=== PATIENT | male | born 1965 | race Caucasian/White ===

== ENCOUNTER → 2018-03-28 10:32 | Outpatient (CLI) | payer OTHER, SELFPAY ==
--- NOTE | 2018-03-28 10:37 | DI.RAD.S_ITS ---
PROCEDURE: XR LUMBAR SPINE 2-3V INDICATIONS: hip pain TECHNIQUE: 3 views of the lumbar spine were acquired. COMPARISON: [facility], CR, SPINE LUMB 2 OR 3VW, 11/08/2013, 11:37. [facility], MR, L-SPINE WITHOUT CONTRAST, 10/16/2013, 10:53. FINDINGS: Bones: 5 [id number] vertebrae are present. There is normal bony alignment. No vertebral body compression fractures. No suspicious bony lesions. There is mild degenerative disc disease at L3-L4 and L4-L5. Moderate facet arthropathy at L4-L5 and L5-S1. Soft tissues: Overlying bowel gas pattern is normal. No suspicious soft tissue calcifications. IMPRESSION: Mild degenerative disc disease and moderate facet arthropathy. Dictated by: Bernardo Silva M.D. on 03/28/2018 at 12:04 Approved by: Bernardo Silva M.D. on 03/28/2018 at 12:08
--- NOTE | 2018-03-28 10:37 | DI.RAD.S_ITS ---
PROCEDURE: XR HIP W PEL IF DONE RT 2V INDICATIONS: hip pain TECHNIQUE: AP pelvis with lateral view(s) of the right hip(s). COMPARISON: None. FINDINGS: Bones: No fractures or dislocations. Pelvic ring appears intact. No suspicious bony lesions. Bilateral moderate symmetric hip joint degeneration. Soft tissues: The visualized bowel gas pattern is normal. No suspicious soft tissue calcifications. IMPRESSION: Symmetric hip joint degeneration bilaterally. Dictated by: Bernardo Silva M.D. on 03/28/2018 at 12:08 Approved by: Bernardo Silva M.D. on 03/28/2018 at 12:10
[2018-03-28 12:15] LABS: Add Manual Diff / Slide Review NO; Basophils Percent Auto 0.4 % (0-2); Eosinophils Percent Auto 1.3 % (2-4); Hematocrit 42.1 % (41-53); Hemoglobin 14.1 g/dL (13.5-17.5); Lymphocytes Percent Auto 29.4 % (25-40); Mean Corpuscular HGB Conc 33.5 % (30-36); Mean Corpuscular Volume 95.6 fL (80-100); Monocytes Percent Auto 8.1 % (3-14); Neutrophils Absolute Auto 4600 /uL (3000-5900); Neutrophils Percent Auto 60.8 % (50-75); Platelet Count 215 X10^3/uL (150-400); Red Cell Distribution Width 13.1 % (11.6-14.8); White Blood Cell Count 7.5 X10^3/uL (4.5-11.0)
[2018-03-28 12:41] LABS: Alanine Aminotransferase 27 IU/L (21-72); Albumin 4.1 g/dL (3.5-5.0); Albumin Globulin Ratio 1.4 (1.0-2.8); Alkaline Phosphatase 88 U/L (38-126); Aspartate Aminotransferase 23 IU/L (17-59); Bilirubin Total 0.4 mg/dL (0.2-1.3); Blood Urea Nitrogen 16 mg/dL (9-20); Calcium 8.8 mg/dL (8.4-10.2); Carbon Dioxide 26 mmol/L (22-32); Chloride 104 mmol/L (98-107); Cholesterol 136 mg/dL (140-199); Estimated Glomerular Filt Rate > 60.0 mL/min (>60); Globulin 2.9 g/dL (1.7-4.1); Glucose 87 mg/dL (70-100); HDL Cholesterol 43 mg/dL (40-60); HEMOLYSIS < 15 (0-50); LDL Cholesterol Calculated 66 mg/dL (<100); Potassium 3.9 mmol/L (3.4-5.1); Sodium 139 mmol/L (137-145); Triglycerides 133 mg/dL (35-150)
== END ==
PROVIDERS: Family Provider Family Medicine; PCP Family Medicine; Visit Provider Family Medicine
DX: I10 Essential (primary) hypertension (principal); M25.559 Pain in unspecified hip
CPT/HCPCS: 36415; 72100; 73502; 80053; 80061; 85025

== ENCOUNTER → 2019-01-02 10:28 | Outpatient (CLI) | payer OTHER, SELFPAY ==
[2019-01-02 12:14] LABS: Add Manual Diff / Slide Review NO; Basophils Absolute Auto 0 /uL (0-100); Basophils Percent Auto 0.3 % (0-2); Eosinophils Absolute Auto 100 /uL (0-450); Eosinophils Percent Auto 1.4 % (2-4); Hematocrit 46.8 % (41-53); Hemoglobin 15.6 g/dL (13.5-17.5); Lymphocytes Absolute Auto 2000 /uL (1100-4500); Lymphocytes Percent Auto 24.8 % (25-40); Mean Corpuscular HGB Conc 33.5 % (30-36); Mean Corpuscular Hemoglobin 31.8 PG (26-34); Mean Corpuscular Volume 95.2 fL (80-100); Monocytes Absolute Auto 700 /uL (0-900); Monocytes Percent Auto 8.7 % (3-14); Neutrophils Absolute Auto 5300 /uL (1500-7000); Neutrophils Percent Auto 64.8 % (50-75); Platelet Count 226 X10^3/uL (150-400); Red Blood Cell Count 4.91 X10^6/uL (4.5-5.9); Red Cell Distribution Width 12.9 % (11.6-14.8); White Blood Cell Count 8.2 X10^3/uL (4.5-11.0)
[2019-01-02 12:21] LABS: Alanine Aminotransferase 24 IU/L (21-72); Albumin 4.5 g/dL (3.5-5.0); Albumin Globulin Ratio 1.5 (1.0-2.8); Alkaline Phosphatase 101 U/L (38-126); Aspartate Aminotransferase 25 IU/L (17-59); Bilirubin Total 0.5 mg/dL (0.2-1.3); Blood Urea Nitrogen 12 mg/dL (9-20); Carbon Dioxide 26 mmol/L (22-32); Chloride 104 mmol/L (98-107); Cholesterol 143 mg/dL (140-199); Estimated Glomerular Filt Rate > 60.0 mL/min (>60); Glucose 83 mg/dL (70-100); HDL Cholesterol 43 mg/dL (40-60); HEMOLYSIS < 15 (0-50); LDL Cholesterol Calculated 62 mg/dL (<100); Potassium 4.3 mmol/L (3.4-5.1); Sodium 140 mmol/L (137-145); Total Protein 7.5 g/dL (6.3-8.2); Triglycerides 191 mg/dL (35-150)
[2019-01-02 12:51] LABS: Prostate Specific Antigen Scrn 1.05 ng/mL (0.1-4.0)
[2019-01-02 13:06] LABS: Thyroid Stimulating Hormone 1.92 uIU/mL (0.47-4.68)
== END ==
PROVIDERS: PCP Family Medicine; Visit Provider Family Medicine
DX: I10 Essential (primary) hypertension (principal); E66.9 Obesity, unspecified; Z01.89 Encounter for other specified special examinations; Z12.5 Encounter for screening for malignant neoplasm of prostate; Z13.220 Encounter for screening for lipoid disorders; Z13.29 Encounter for screening for other suspected endocrine disorder; Z79.899 Other long term (current) drug therapy
CPT/HCPCS: 36415; 80053; 80061; 84443; 85025; G0103

== ENCOUNTER → 2019-04-24 10:16 | Outpatient (CLI) | payer OTHER, SELFPAY ==
[2019-04-24 12:18] LABS: Blood Urea Nitrogen 12 mg/dL (9-20); Calcium 9.4 mg/dL (8.4-10.2); Carbon Dioxide 29 mmol/L (22-32); Chloride 100 mmol/L (98-107); Estimated Glomerular Filt Rate > 60.0 mL/min (>60); Glucose 87 mg/dL (70-100); HEMOLYSIS < 15 (0-50); Sodium 136 mmol/L (137-145)
== END ==
PROVIDERS: PCP Family Medicine; Visit Provider Family Medicine
DX: I10 Essential (primary) hypertension (principal)
CPT/HCPCS: 36415; 80048; 80053; 80061; 84153; 85025

== ENCOUNTER → 2019-07-04 11:06 | Outpatient (CLI) | payer OTHER, SELFPAY ==
--- NOTE | 2019-07-04 11:12 | DI.MRI.S_ITS ---
PROCEDURE: MR LUMBAR SPINE WO CON INDICATIONS: Low back pain TECHNIQUE: Noncontrast sagittal T1 spin echo and T2 fast echo, sagittal STIR, axial T1 and T2 fast spin echo through the lumbar spine. In cases with scoliosis, additional coronal T2 fast spin echo may be performed. COMPARISON: [facility], MR, L-SPINE WITHOUT CONTRAST, 10/16/2013, 10:53. FINDINGS: Image quality: Excellent. Alignment and Curvature: There is normal bony alignment. Bone Marrow: Multilevel degenerative endplate sclerosis and spurring. Diffuse facet arthropathy. No acute vertebral body compression fractures. Spinal Cord: Conus medullaris terminates at the L2 level. Visualized cord demonstrates normal signal and size. Paraspinous Soft Tissues: No paravertebral masses. There is nonspecific, dependent posterior subcutaneous soft tissue edema from level of L2-sacrum L1-L2: Normal appearance. L2-L3: Normal appearance. L3-L4: Normal appearance. L4-L5: No high-grade canal stenosis. Partial effacement of both lateral recesses with bilaterally symmetric appearance. Mild bilateral foraminal narrowing. L5-S1: No high-grade canal stenosis. Partial effacement of both lateral recesses with bilaterally symmetric appearance. No definite foraminal narrowing. IMPRESSION: Overall, unchanged examination. Mild bilateral L4-L5 foraminal narrowing, without interval progression. Dictated by: Dereje Nava M.D. on 07/04/2019 at 14:56 Approved by: Dereje Naav M.D. on 07/04/2019 at 15:02
--- NOTE | 2019-07-04 11:12 | DI.MRI.S_ITS ---
PROCEDURE: MR HIP RT WO CON INDICATIONS: Hip pain TECHNIQUE: Noncontrast coronal T1 spin echo and STIR through the bony pelvis. Coronal and axial T2 fast spin echo with fat saturation, sagittal T1 spin echo, and oblique axial T2 fast spin echo with fat saturation through the hip. COMPARISON: [facility], CT, ABDOMEN/PELVIS WITH CONTRAST, 12/05/2012, 15:34. [facility], CR, XR HIP W PEL IF DONE RT 2V, 03/28/2018, 10:45. FINDINGS: Image quality: Excellent. Bones and joints: Within both femoral heads, subchondral serpiginous signal changes in keeping with avascular necrosis. No definite articular surface collapse is seen. No intraosseous lesions or fractures. Facet arthropathy and lower lumbar spondylosis. Moderate bilateral hip joint degeneration. Tendons and ligaments: The gluteus medius and minimus tendons appear intact, without associated muscle atrophy. The nearby proximal iliotibial band also appears intact. The iliopsoas tendon appears intact, without adjacent bursal fluid collections or evidence for impingement syndrome. The origin of the hamstring tendon is intact at the ischial tuberosity, as well as the associated sacrotuberous ligament. The straight and reflected heads of the rectus femoris muscle origin appear intact, as well as the conjoint tendon. The ligamentum teres appears intact where visualized. Labrum and cartilage: Superior labral degeneration/fraying. Adjacent degenerative cystic changes in acetabulum. Small hip joint effusion. The alpha angle of the femur is within normal limits at less than 55 degrees. Soft tissues: Visualized muscles demonstrate normal bulk and internal signal. Quadratus femoris muscle demonstrates no internal edema to suggest ischiofemoral impingement. The proximal sciatic neurovascular bundle appears normal adjacent to the hamstring tendons. No free pelvic fluid. Bladder wall thickness is normal. Genitourinary structures and bowel loops appear normal where visualized. IMPRESSION: Bilateral femoral head avascular necrosis. No definite articular surface collapse though continued surveillance with radiographs could be performed as necessary. Moderate bilateral hip joint degeneration Superior labral degeneration/fraying. Small hip joint effusion. Dictated by: Dereje Nava M.D. on 07/04/2019 at 15:02 Approved by: Dereje Nava M.D. on 07/04/2019 at 15:14
== END ==
PROVIDERS: PCP Family Medicine; Visit Provider Family Medicine
DX: M54.5 Low back pain (principal); M25.551 Pain in right hip; M48.061 Spinal stenosis, lumbar region without neurogenic claudication; M16.0 Bilateral primary osteoarthritis of hip; M87.852 Other osteonecrosis, left femur; M87.851 Other osteonecrosis, right femur; M25.451 Effusion, right hip
CPT/HCPCS: 72148; 73721

== ENCOUNTER → 2019-12-31 10:25 | Outpatient (CLI) | payer OTHER, SELFPAY ==
[2019-12-31 11:33] LABS: Add Manual Diff / Slide Review NO; Basophils Absolute Auto 0 /uL (0-100); Basophils Percent Auto 0.6 % (0-2); Eosinophils Absolute Auto 100 /uL (0-450); Eosinophils Percent Auto 1.4 % (2-4); Hematocrit 42.4 % (41-53); Hemoglobin 14.5 g/dL (13.5-17.5); Lymphocytes Absolute Auto 2000 /uL (1100-4500); Mean Corpuscular HGB Conc 34.3 % (30-36); Mean Corpuscular Volume 96.3 fL (80-100); Monocytes Absolute Auto 800 /uL (0-900); Monocytes Percent Auto 10.4 % (3-14); Neutrophils Absolute Auto 4900 /uL (1500-7000); Neutrophils Percent Auto 62.6 % (50-75); Platelet Count 227 X10^3/uL (150-400); Red Cell Distribution Width 12.8 % (11.6-14.8); White Blood Cell Count 7.9 X10^3/uL (4.5-11.0)
[2019-12-31 11:45] LABS: Alanine Aminotransferase 21 IU/L (<50); Albumin 4.5 g/dL (3.5-5.0); Albumin Globulin Ratio 1.5 (1.0-2.8); Alkaline Phosphatase 86 U/L (38-126); Aspartate Aminotransferase 26 IU/L (17-59); BUN Creatinine Ratio 24.7 (6-22); Bilirubin Total 0.3 mg/dL (0.2-1.3); Blood Urea Nitrogen 20 mg/dL (9-20); Calcium 9.3 mg/dL (8.4-10.2); Carbon Dioxide 25 mmol/L (22-32); Chloride 104 mmol/L (98-107); Cholesterol 146 mg/dL (140-199); Estimated Glomerular Filt Rate > 60.0 mL/min (>60); Globulin 3.1 g/dL (1.7-4.1); Glucose 86 mg/dL (70-100); HDL Cholesterol 41 mg/dL (40-60); HEMOLYSIS < 15 (0-50); LDL Cholesterol Calculated 76 mg/dL (<100); Potassium 4.8 mmol/L (3.4-5.1); Sodium 136 mmol/L (137-145); Total Protein 7.6 g/dL (6.3-8.2); Triglycerides 147 mg/dL (35-150)
[2019-12-31 12:15] LABS: Prostate Specific Antigen Scrn 0.815 ng/mL (0.1-4.0)
== END ==
PROVIDERS: PCP Family Medicine; Referring Provider Family Medicine; Visit Provider Family Medicine
DX: I10 Essential (primary) hypertension (principal)
CPT/HCPCS: 36415; 80053; 80061; 85025; G0103

== ENCOUNTER 2020-01-21 12:38 | Emergency (ER) | payer OTHER, SELFPAY ==
[2020-01-21 13:08] VITALS: BP 116/61; PULSE 69; RESP 18; TEMP 36.4; O2SAT 97
--- NOTE | 2020-01-21 15:28 | ED_ITS ---
HPI - Skin/Abscess/Foreign Bdy <JS Garcia - Last Filed: 01/21/20 15:55> General Chief complaint: Skin/Abscess/Foreign Body Stated complaint: RT HAND INFECTION PER DR COCHRAN Time Seen by Provider: 01/21/20 15:13 Source: patient Mode of arrival: Ambulatory Limitations: no limitations History of Present Illness HPI narrative: The patient is a 54-year-old male current smoker with history of cardiac arrest who presents with a chief complaint of an infection the back of his right hand. He states that he was playing with his dogs on Monday, who playfully nipped his hand. Since that he has had redness on the back of his hand. He thinks it is either that related to blackberry bushes. He does not know the date of his last tetanus. He states that his dog is vaccinated. He th inks that this is more likely due to his dog's teeth. Related Data Previous Rx's Medication Instructions Recorded albuterol sulfate 90 mcg/actuation 2 puff INHALATION Q4H PRN #8.5 ea 01/30/19 aerosol inhaler lisinopril 20 mg tablet 20 mg PO BID #180 tab 01/30/19 betamethasone dipropionate 0.05 % See Rx Instructions .ROUTE 12/02/19 topical ointment .COMPLEX #45 gram hydrocodone 7.5 mg-acetaminophen 1 tab PO Q6H PRN #120 tab 12/27/19 325 mg tablet tiotropium bromide 2.5 2 puff INHALATION DAILY #4 gram 01/03/20 mcg/actuation mist for inhalation amoxicillin-pot clavulanate 1 tab PO BID #20 tab 01/21/20 [Augmentin] Allergies Allergy/AdvReac Type Severity Reaction Status Date / Time No Known Drug Allergies Allergy Unknown Verified 08/14/19 10:24 Review of Systems <JS Garcia - Last Filed: 01/21/20 15:55> Review of Systems Narrative: GENERAL: Denies chills, fatigue, malaise, fever, sweats. HEENT: Denies sinus pain, ear pain, sore throat, difficulty swallowing, dizziness. RESPIRATORY: Denies dyspnea, cough, wheezing, hemoptysis, sputum. CARDIOVASCULAR: Denies chest pain, palpitations, orthopnea, edema, GASTROINTESTINAL: Denies nausea, vomiting, abdominal pain, diarrhea, constipation, melena. : Denies dysuria, frequency, incontinence, hematuria, urinary retention. MUSCULOSKELETAL: See HPI SKIN: See HPI NEUROLOGIC: Denies weakness, headache, numbness, change in speech, confusion, seizures, incoordination. PSYCHIATRIC: No concerning psychosocial issues. 12 point review of systems is negative except for those stated above Patient History <JS Garcia - Last Filed: 01/21/20 15:55> Social History Smoking Status: Current some day smoker Smoking Status: Current some day smoker Exam <JS Garcia - Last Filed: 01/21/20 15:55> Narrative Exam Narrative: GENERAL: This is a well-nourished, well-developed patient, no acute distress HEAD: Atraumatic. Normocephalic. No temporal or scalp tenderness. EYES: Pupils equal round and reactive. Extraocular motions intact. No scleral icterus. No injection or drainage. ENT: Nose without bleeding, purulent drainage or septal hematoma. Throat without erythema, tonsillar hypertrophy or exudate. Uvula midline. Airway patent. NECK: Trachea midline. No JVD or lymphadenopathy. Supple, nontender, no meningeal signs. CARDIOVASCULAR: Regular rate and rhythm RESPIRATORY: Coarse bilaterally to auscultation. Breath sounds equal bilaterally. EXTREMITIES: Skin exam as noted. Full range of motion noted right hand. Able to flex and extend against resistance all fingers right hand. Positive right radial pulse. Capillary refill less than 2 seconds fingers right hand BACK: Nontender without deformity or crepitance. No flank tenderness. NEURO: AOx3. SKIN: Erythema dorsum of right hand not extending down 2 fingers, not extending up wrist. Small puncture ellis noted on dorsum of right hand Initial Vital Signs Initial Vital Signs: Vital Signs Temperature 97.5 F L 01/21/20 13:08 Pulse Rate 69 01/21/20 13:08 Respiratory Rate 18 01/21/20 13:08 Blood Pressure 116/61 01/21/20 13:08 Pulse Oximetry 97 01/21/20 13:08 <Mahamed Latif DO - Last Filed: 01/21/20 20:08> Initial Vital Signs Initial Vital Signs: Vital Signs Temperature 97.5 F L 01/21/20 13:08 Pulse Rate 69 01/21/20 13:08 Respiratory Rate 18 01/21/20 13:08 Blood Pressure 116/61 01/21/20 13:08 Pulse Oximetry 97 01/21/20 13:08 Course <JS Garcia - Last Filed: 01/21/20 15:55> Orders Ordered: Discontinued Medications Diphtheria/Tetanus/Acell Pertussis (Adacel) 0.5 ml IM .ONCE ONE Stop: 01/21/20 15:20 Last Admin: 01/21/20 15:31 Dose: 0.5 ml Documented by: RODNEY Vital Signs Vital signs: Vital Signs - 8 hr 01/21/20 13:08 Temperature 97.5 F L Pulse Rate 69 Respiratory Rate 18 Blood Pressure 116/61 Pulse Oximetry 97 <Mahamed Latif DO - Last Filed: 01/21/20 20:08> Orders Ordered: Discontinued Medications Diphtheria/Tetanus/Acell Pertussis (Adacel) 0.5 ml IM .ONCE ONE Stop: 01/21/20 15:20 Last Admin: 01/21/20 15:31 Dose: 0.5 ml Documented by: RODNEY Vital Signs Vital signs: Vital Signs - 8 hr 01/21/20 13:08 Temperature 97.5 F L Pulse Rate 69 Respiratory Rate 18 Blood Pressure 116/61 Pulse Oximetry 97 MDM - Skin/Abscess/Foreign Bdy <JS Garcia - Last Filed: 01/21/20 15:55> MDM Narrative Medical decision making narrative: The patient is a 54-year-old male who [facility] with a chief complaint of an infection after a dog bite on his right hand. He initially thought it might be due to blackberry bushes, but then remembered that puncture murphy from his dog. His dog was vaccinated. He does not know when his last tetanus was, so his tetanus was updated in the emergency department. He declined x-ray. He has full range of motion and is overall nontoxic well-appearing afebrile in the emergency department. I discussed at length the importance of following up with primary care provider in the next few days. Placed on Augmentin for dog bite. Discussed monitor for signs of systemic illness and worsening such as redness extending up his arm. Patient has no questions or concerns upon discharge and states understanding return precautions as well as follow-up care. Discharge Plan Departure Patient Disposition: Home Clinical Impression: Cellulitis Qualifiers: Site of cellulitis: extremity Site of cellulitis of extremity: upper extremity Laterality: right Qualified Code(s): L03.113 - Cellulitis of right upper limb Dog bite Qualifiers: Encounter type: initial encounter Qualified Code(s): W54.0XXA - Bitten by dog, initial encounter Discharge Date/Time: 01/21/20 15:43 Instructions: DI for Cellulitis -- Adult, DI for Animal Bites, DI for Dog Bite Activity Restrictions/Additional Instructions: Thank you for trusting us with your care today Today we updated your tetanus. I sent a prescription of an antibiotic to [facility] in [place] Please take this with a yogurt or probiotic As discussed please monitor for signs of worsening infection such as fever, decreased range of motion, redness extending up your hand Please follow-up with primary care provider in the next few days Please come back to the emergency department for any acute concerns Prescriptions: New amoxicillin-pot clavulanate [Augmentin] 875-125 mg tablet 1 tab PO BID Qty: 20 RF: 0 No Action betamethasone dipropionate 0.05 % ointment See Rx Instructions .ROUTE .COMPLEX Qty: 45 RF: 5 hydrocodone-acetaminophen 7.5-325 mg tablet 1 tab PO Q6H PRN (Reason: pain) Qty: 120 RF: 0 Spiriva Respimat 2.5 mcg/actuation mist 2 puff INHALATION DAILY Qty: 4 RF: 5 albuterol sulfate [Proventil HFA] 90 mcg/actuation HFA aerosol inhaler 2 puff INHALATION Q4H PRN (Reason: shortness of breath or wheezing) Qty: 8.5 RF: 11 lisinopril [Prinivil] 20 mg tablet 20 mg PO BID Qty: 180 RF: 3 Referrals: Lisandro Cochran MD [Primary Care Provider] - <Mahamed Latif DO - Last Filed: 01/21/20 20:08> [facility] ED Attending Natalia Attestation: I was immediately available in the department for consultation. This documentation has been reviewed and I agree with assessment and plan. Supervised by Mahamed Latif DO
[2020-01-21] MEDS: TET,DIPH,PERTUSS(ACELL),VAC/PF 0.5 ML SYRINGE IM (15:31)
== END 2020-01-21 15:43 | disposition home or self-care (01) ==
PROVIDERS: Emergency Provider Nurse Practitioner Family; PCP Family Medicine
DX: L03.113 Cellulitis of right upper limb (principal); W54.0XXA Bitten by dog, initial encounter; Z23 Encounter for immunization
CPT/HCPCS: 90471; 99283; 90715

== ENCOUNTER → 2020-06-09 11:33 | Outpatient (CLI) | payer OTHER, SELFPAY ==
[2020-06-09 12:45] LABS: Add Manual Diff / Slide Review NO; Basophils Absolute Auto 0 /uL (0-100); Basophils Percent Auto 0.3 % (0-2); Eosinophils Absolute Auto 100 /uL (0-450); Eosinophils Percent Auto 1.3 % (2-4); Hematocrit 45.2 % (41-53); Hemoglobin 15.2 g/dL (13.5-17.5); Lymphocytes Absolute Auto 1900 /uL (1100-4500); Lymphocytes Percent Auto 22.3 % (25-40); Mean Corpuscular HGB Conc 33.6 % (30-36); Mean Corpuscular Hemoglobin 31.8 PG (26-34); Mean Corpuscular Volume 94.7 fL (80-100); Monocytes Absolute Auto 700 /uL (0-900); Monocytes Percent Auto 8.4 % (3-14); Neutrophils Absolute Auto 5800 /uL (1500-7000); Neutrophils Percent Auto 67.7 % (50-75); Platelet Count 232 X10^3/uL (150-400); Red Blood Cell Count 4.78 X10^6/uL (4.5-5.9); Red Cell Distribution Width 12.9 % (11.6-14.8); White Blood Cell Count 8.5 X10^3/uL (4.5-11.0)
[2020-06-09 13:04] LABS: Alanine Aminotransferase 23 IU/L (<50); Albumin 4.4 g/dL (3.5-5.0); Albumin Globulin Ratio 1.5 (1.0-2.8); Alkaline Phosphatase 99 U/L (38-126); Aspartate Aminotransferase 24 IU/L (17-59); BUN Creatinine Ratio 21.1 (6-22); Bilirubin Total 0.6 mg/dL (0.2-1.3); Blood Urea Nitrogen 15 mg/dL (9-20); Carbon Dioxide 27 mmol/L (22-32); Chloride 104 mmol/L (98-107); Cholesterol 141 mg/dL (140-199); Estimated Glomerular Filt Rate > 60.0 mL/min (>60); Glucose 86 mg/dL (70-100); HDL Cholesterol 42 mg/dL (40-60); HEMOLYSIS < 15 (0-50); LDL Cholesterol Calculated 67 mg/dL (<100); Potassium 4.3 mmol/L (3.4-5.1); Sodium 137 mmol/L (137-145); Total Protein 7.4 g/dL (6.3-8.2); Triglycerides 158 mg/dL (35-150)
[2020-06-09 13:22] LABS: Prostate Specific Antigen Scrn 0.893 ng/mL (0.1-4.0)
[2020-06-09 13:23] LABS: Thyroid Stimulating Hormone 1.49 uIU/mL (0.47-4.68)
== END ==
PROVIDERS: PCP Family Medicine; Referring Provider Family Medicine; Visit Provider Family Medicine
DX: E66.9 Obesity, unspecified (principal); I10 Essential (primary) hypertension; Z12.5 Encounter for screening for malignant neoplasm of prostate; Z13.220 Encounter for screening for lipoid disorders; Z13.6 Encounter for screening for cardiovascular disorders
CPT/HCPCS: 36415; 80053; 80061; 84443; 85025; G0103

== ENCOUNTER → 2021-01-06 10:37 | Outpatient (CLI) | payer OTHER, SELFPAY ==
[2021-01-06 12:01] LABS: Add Manual Diff / Slide Review NO; Basophils Absolute Auto 0 /uL (0-100); Basophils Percent Auto 0.6 % (0-2); Eosinophils Absolute Auto 100 /uL (0-450); Eosinophils Percent Auto 0.9 % (2-4); Hematocrit 40.8 % (41-53); Lymphocytes Absolute Auto 1700 /uL (1100-4500); Mean Corpuscular HGB Conc 34.2 % (30-36); Mean Corpuscular Hemoglobin 32.9 PG (26-34); Mean Corpuscular Volume 96.2 fL (80-100); Monocytes Absolute Auto 700 /uL (0-900); Monocytes Percent Auto 8.3 % (3-14); Neutrophils Absolute Auto 5800 /uL (1500-7000); Neutrophils Percent Auto 70.2 % (50-75); Platelet Count 230 X10^3/uL (150-400); Red Blood Cell Count 4.25 X10^6/uL (4.5-5.9); Red Cell Distribution Width 13.2 % (11.6-14.8); White Blood Cell Count 8.3 X10^3/uL (4.5-11.0)
[2021-01-06 12:31] LABS: Alanine Aminotransferase 22 IU/L (<50); Albumin 4.2 g/dL (3.5-5.0); Albumin Globulin Ratio 1.6 (1.0-2.8); Alkaline Phosphatase 95 U/L (38-126); Aspartate Aminotransferase 24 IU/L (17-59); Bilirubin Total 0.3 mg/dL (0.2-1.3); Blood Urea Nitrogen 17 mg/dL (9-20); Calcium 9.4 mg/dL (8.4-10.2); Carbon Dioxide 25 mmol/L (22-32); Chloride 105 mmol/L (98-107); Cholesterol 146 mg/dL (140-199); Estimated Glomerular Filt Rate > 60.0 mL/min (>60); Globulin 2.6 g/dL (1.7-4.1); Glucose 88 mg/dL (70-100); HDL Cholesterol 47 mg/dL (40-60); HEMOLYSIS < 15 (0-50); LDL Cholesterol Calculated 74 mg/dL (<100); Potassium 4.7 mmol/L (3.4-5.1); Sodium 137 mmol/L (137-145); Total Protein 6.8 g/dL (6.3-8.2); Triglycerides 123 mg/dL (35-150)
[2021-01-06 13:00] LABS: Prostate Specific Antigen Scrn 0.712 ng/mL (0.1-4.0)
== END ==
PROVIDERS: PCP Family Medicine; Referring Provider Family Medicine; Visit Provider Family Medicine
DX: E11.9 Type 2 diabetes mellitus without complications (principal); E78.00 Pure hypercholesterolemia, unspecified; E78.2 Mixed hyperlipidemia; I10 Essential (primary) hypertension; Z12.5 Encounter for screening for malignant neoplasm of prostate
CPT/HCPCS: 36415; 80053; 80061; 85025; G0103

== ENCOUNTER → 2021-05-27 10:50 | Outpatient (CLI) | payer OTHER, SELFPAY ==
[2021-05-27 11:49] LABS: Add Manual Diff / Slide Review NO; Basophils Absolute Auto 0 /uL (0-100); Basophils Percent Auto 0.5 % (0-2); Eosinophils Absolute Auto 100 /uL (0-450); Eosinophils Percent Auto 1.3 % (2-4); Hematocrit 45.1 % (41-53); Lymphocytes Absolute Auto 1800 /uL (1100-4500); Lymphocytes Percent Auto 20.8 % (25-40); Mean Corpuscular HGB Conc 33.1 % (30-36); Mean Corpuscular Hemoglobin 32.1 PG (26-34); Mean Corpuscular Volume 96.8 fL (80-100); Monocytes Absolute Auto 700 /uL (0-900); Monocytes Percent Auto 7.7 % (3-14); Neutrophils Absolute Auto 5900 /uL (1500-7000); Neutrophils Percent Auto 69.7 % (50-75); Platelet Count 235 X10^3/uL (150-400); Red Blood Cell Count 4.66 X10^6/uL (4.5-5.9); Red Cell Distribution Width 13.2 % (11.6-14.8); White Blood Cell Count 8.5 X10^3/uL (4.5-11.0)
[2021-05-27 12:42] LABS: Alanine Aminotransferase 21 IU/L (<50); Albumin 4.5 g/dL (3.5-5.0); Albumin Globulin Ratio 1.6 (1.0-2.8); Alkaline Phosphatase 93 U/L (38-126); Aspartate Aminotransferase 25 IU/L (17-59); BUN Creatinine Ratio 22.4 (6-22); Bilirubin Total 0.5 mg/dL (0.2-1.3); Blood Urea Nitrogen 15 mg/dL (9-20); Calcium 9.3 mg/dL (8.4-10.2); Carbon Dioxide 31 mmol/L (22-32); Chloride 103 mmol/L (98-107); Estimated Glomerular Filt Rate > 60.0 mL/min (>60); Globulin 2.9 g/dL (1.7-4.1); Glucose 90 mg/dL (70-100); HEMOLYSIS < 15 (0-50); Potassium 4.3 mmol/L (3.4-5.1); Sodium 141 mmol/L (137-145); Total Protein 7.4 g/dL (6.3-8.2)
== END ==
PROVIDERS: PCP Family Medicine; Referring Provider Family Medicine; Visit Provider Family Medicine
DX: E66.9 Obesity, unspecified (principal); I10 Essential (primary) hypertension; J44.9 Chronic obstructive pulmonary disease, unspecified; Z68.33 Body mass index [BMI] 33.0-33.9, adult; Z71.6 Tobacco abuse counseling
CPT/HCPCS: 36415; 80053; 85025

== ENCOUNTER → 2023-01-18 12:24 | Outpatient (CLI) | payer SELFPAY ==
[2023-01-18 13:05] LABS: Add Manual Diff / Slide Review NO; Basophils Absolute Auto 0 /uL (0-100); Basophils Percent Auto 0.4 % (0-2); Eosinophils Absolute Auto 100 /uL (0-450); Eosinophils Percent Auto 0.9 % (2-4); Hematocrit 42.2 % (41-53); Hemoglobin 14.4 g/dL (13.5-17.5); Lymphocytes Absolute Auto 1600 /uL (1100-4500); Lymphocytes Percent Auto 23.1 % (25-40); Mean Corpuscular Hemoglobin 32.6 PG (26-34); Mean Corpuscular Volume 95.9 fL (80-100); Monocytes Absolute Auto 700 /uL (0-900); Monocytes Percent Auto 9.5 % (3-14); Neutrophils Absolute Auto 4700 /uL (1500-7000); Neutrophils Percent Auto 66.1 % (50-75); Platelet Count 222 X10^3/uL (150-400); Red Cell Distribution Width 13.8 % (11.6-14.8); White Blood Cell Count 7.1 X10^3/uL (4.5-11.0)
[2023-01-18 13:14] LABS: Alanine Aminotransferase 22 IU/L (<50); Albumin 4.2 g/dL (3.5-5.0); Albumin Globulin Ratio 1.4 (1.0-2.8); Alkaline Phosphatase 97 U/L (38-126); Aspartate Aminotransferase 23 IU/L (17-59); Bilirubin Total 0.6 mg/dL (0.2-1.3); Blood Urea Nitrogen 9 mg/dL (9-20); Calcium 8.6 mg/dL (8.4-10.2); Carbon Dioxide 27 mmol/L (22-32); Chloride 102 mmol/L (98-107); Cholesterol 146 mg/dL (140-199); Estimated Glomerular Filt Rate > 60 mL/min (>60); Glucose 95 mg/dL (70-100); HDL Cholesterol 52 mg/dL (40-60); HEMOLYSIS < 15 (0-50); LDL Cholesterol Calculated 63 mg/dL (<100); Sodium 138 mmol/L (137-145); Total Protein 7.2 g/dL (6.3-8.2); Triglycerides 153 mg/dL (35-150)
[2023-01-18 13:43] LABS: Prostate Specific Antigen Scrn 0.549 ng/mL (0.1-4.0)
[2023-01-18 13:44] LABS: TSH w/ Reflex to FT4 1.71 uIU/mL (0.47-4.68)
== END ==
PROVIDERS: PCP Family Medicine; Referring Provider Family Medicine; Visit Provider Family Medicine
DX: E66.9 Obesity, unspecified (principal); I10 Essential (primary) hypertension; Z12.5 Encounter for screening for malignant neoplasm of prostate
CPT/HCPCS: 36415; 80053; 80061; 84443; 85025; G0103

== ENCOUNTER → 2023-01-18 13:55 | Outpatient (CLI) | payer SELFPAY ==
--- NOTE | 2023-01-18 14:13 | DI.RAD.S_ITS ---
PROCEDURE: XR LUMBAR SPINE MIN 4V INDICATIONS: BACK PAIN TECHNIQUE: 5 views of the lumbar spine were acquired, including bilateral oblique views. COMPARISON: None. FINDINGS: Bones: 5 nonrib-bearing vertebrae are present. There is grade 1 anterolisthesis of L4 on L5. No vertebral body compression fractures. No suspicious bony lesions. Mild degenerative disc disease at L4-L5. Moderate facet arthropathy at L3-L4, L4-L5 and L5-S1. Soft tissues: Overlying bowel gas pattern is normal. No suspicious soft tissue calcifications. Oblique images: No pars defects. IMPRESSION: 1. Degenerative disc and facet disease. Dictated by: Bernardo Silva M.D. on 01/18/2023 at 16:39 Approved by: Bernardo Silva M.D. on 01/18/2023 at 16:46
--- NOTE | 2023-01-18 15:40 | DI.RAD.S_ITS ---
PROCEDURE: XR HIP W PEL IF DONE NGUYỄN MIN 4V INDICATIONS: bilateral hip pain TECHNIQUE: AP pelvis with lateral view(s) of the bilateral hip(s). COMPARISON: [facility], CR, XR HIP W PEL IF DONE RT 2V, 03/28/2018, 10:45. FINDINGS: Bones: No fractures or dislocations. Pelvic ring appears intact. No suspicious bony lesions. Avascular necrosis versus subchondral cystic change of the femoral heads. Bony expansion of the femoral necks, consistent with CAM type abnormality. Nonuniform joint space narrowing with osteophyte formation. Soft tissues: The visualized bowel gas pattern is normal. No suspicious soft tissue calcifications. IMPRESSION: Suspect bilateral femoral avascular necrosis. Subchondral cystic change not excluded. 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 Superimposed [id number] degenerative change. Dictated by: Ian Méndez M.D. on 01/18/2023 at 15:52 Approved by: Ian Méndez M.D. on 01/18/2023 at 15:54
== END ==
PROVIDERS: PCP Family Medicine; Referring Provider Physical Medicine & Rehabilitation; Visit Provider Physical Medicine & Rehabilitation
DX: M51.36 Other intervertebral disc degeneration, lumbar region (principal); M47.816 Spondylosis without myelopathy or radiculopathy, lumbar region; M19.90 Unspecified osteoarthritis, unspecified site
CPT/HCPCS: 72110; 73522

== ENCOUNTER → 2023-02-20 12:12 | Outpatient (CLI) | payer OTHER, MEDICAID, SELFPAY ==
--- NOTE | 2023-02-20 12:14 | DI.RAD.S_ITS ---
PROCEDURE: XR CHEST 2V INDICATIONS: Pre operative TECHNIQUE: 2 views of the chest were acquired. COMPARISON: [facility], , CHEST 2 VIEW, 06/15/2012, 9:07. FINDINGS: Surgical changes and devices: None. Lungs and pleura: No acute consolidations, opacities, effusions, or pneumothorax. There are chronic rounded calcifications in the left upper lobe and right lower lobe. Mediastinum: Mediastinal contours are normal. Heart size is normal. Bones and chest wall: No suspicious bony abnormalities. Soft tissues appear unremarkable. IMPRESSION: No acute cardiopulmonary disease. Dictated by: Millie Amato M.D. on 02/20/2023 at 17:41 Approved by: Millie Amato M.D. on 02/20/2023 at 17:41
== END ==
PROVIDERS: PCP Family Medicine; Referring Provider Family Medicine; Visit Provider Family Medicine
DX: Z01.818 Encounter for other preprocedural examination (principal)
CPT/HCPCS: 71046

== ENCOUNTER → 2023-03-14 12:16 | Outpatient (CLI) | payer OTHER, MEDICAID, SELFPAY | PROVIDERS: PCP Family Medicine; Referring Provider Family Medicine; Visit Provider Family Medicine | DX: Z01.818 Encounter for other preprocedural examination (principal); M16.0 Bilateral primary osteoarthritis of hip | CPT/HCPCS: 93005 ==

== ENCOUNTER 2024-01-10 11:38 | Inpatient (IN) | payer OTHER, SELFPAY ==
[2024-01-10] VITALS (41 sets, daily range): BP systolic 145–174; BP diastolic 71–93; PULSE 84–115; RESP 13–42; TEMP 36.6–37.4; O2SAT 82–98; BMI 43.4
--- NOTE | 2024-01-10 11:55 | DI.RAD.S_ITS ---
PROCEDURE: XR CHEST 1V INDICATIONS: SOB TECHNIQUE: One view of the chest was acquired. COMPARISON: [facility], CR, XR CHEST 2V, 02/20/2023, 12:39. FINDINGS: Surgical changes and devices: None. Lungs and pleura: Lungs are clear. No pleural effusions or pneumothorax. Mediastinum: Mediastinal contours appear normal. Heart size is normal. Bones and chest wall: No suspicious bony lesions. Overlying soft tissues appear unremarkable. IMPRESSION: No acute cardiopulmonary abnormality is seen. Dictated by: Artemio Duval M.D. on 01/10/2024 at 12:24 Approved by: Artemio Duval M.D. on 01/10/2024 at 12:25
--- NOTE | 2024-01-10 12:07 | ED.GENADULT ---
HPI - General Adult General Chief complaint: Shortness of Breath/Dyspnea Stated complaint: big wound R leg, draining, sob Time Seen by Provider: 01/10/24 11:46 Source: patient Mode of arrival: Wheelchair History of Present Illness HPI narrative: 58-year-old male. States he has no underlying lung pathology although his problem list states COPD. He was a smoker. Does have home oxygen but does not use it. 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 No chest pain. Does have a cough but this is baseline. No abdominal pain or nausea vomiting. He also states he has wounds on his lower extremities. Has a history of psoriasis. He states that the wounds on his lower extremities have been there for at least a month but has been worsening over the past couple days. It was now draining. He went to the walk-in a couple days ago and was advised to come to the emergency department but secondary to social issues was unable to do so. Related Data Home Medications Medication Instructions Recorded Confirmed aspirin 81 mg tablet,delayed 81 mg PO QAM 01/10/24 01/10/24 release docusate sodium 100 mg capsule 100 mg PO BID PRN constipation 01/10/24 01/10/24 lisinopril 20 mg tablet 20 mg PO BID 01/10/24 01/10/24 Previous Rx's Medication Instructions Recorded albuterol sulfate 90 mcg/actuation 2 puff inhalation Q4H PRN 08/12/20 aerosol inhaler (Proventil HFA) shortness of breath or wheezing #8.5 ea tiotropium bromide 2.5 2 puff inhalation DAILY #4 grams 02/09/22 mcg/actuation mist for inhalation (Spiriva Respimat) betamethasone dipropionate 0.05 % See Rx Instructions .Route 11/25/22 topical ointment .COMPLEX #45 grams varenicline 1 mg tablet 1 mg PO BID #56 tabs 03/14/23 hydrocodone 7.5 mg-acetaminophen See Rx Instructions .Route 12/11/23 325 mg tablet .COMPLEX #150 tabs Allergies Allergy/AdvReac Type Severity Reaction Status Date / Time No Known Drug Allergies Allergy Unknown Verified 09/12/23 12:01 Review of Systems Review of Systems ROS Unobtainable: All systems reviewed & are unremarkable except as noted in HPI and below Patient History Medical History Hypoxia Degenerative joint disease of both hips Chronic pain of both knees Gout Bilateral lower extremity edema Chronic pain Iliotibial band syndrome, left leg Tobacco abuse counseling Right hip pain Social History Smoking Status: Current every day smoker Tobacco: How many years used: 45 alcohol intake: current substance use type: does not use Smoking Status: Current every day smoker tobacco type: cigarettes Substance Use Type: does not use Exam Initial Vital Signs Initial Vital Signs: Vital Signs Temperature 99.4 F 01/10/24 11:40 Pulse Rate 106 H 01/10/24 11:40 Respiratory Rate 32 H 01/10/24 11:40 Blood Pressure 145/73 H 01/10/24 11:40 Pulse Oximetry 82 L 01/10/24 11:40 Oxygen Delivery Method Room Air 01/10/24 11:40 Const Other: Chronically ill-appearing HENMT Head: normal to inspection and normocephalic Resp Effort & Inspection: cough, labored and tachypneic Auscultation: rhonchi and wheezes Cardio Rate: regular rate Rhythm: regular rhythm Skin Other: Multiple areas of psoriasis. Patient also has redness to bilateral lower extremities that is equal bilateral and circumferential. Has a large area of eschar and ulceration on the posterior aspect of the right calf. Has areas in the anterior aspect of the right flores that is draining a serosanguineous fluid. Neuro General: patient alert, patient awake and moves all extremities Extrem General: edema Course Orders Ordered: ED Orders 01/10/24 11:55 XR chest 1V Stat EKG-12 Lead Stat 01/10/24 12:00 Complete Blood Count AUTO DIFF Stat Comprehensive Metabolic Panel Stat Lactate (Lactic Acid) Stat Lipase Stat NT-proBNP (BNP-Adult 18+) Stat PTT Partial Thromboplastin Jony Stat Procalcitonin Stat Prothrombin Time INR Stat Troponin & CK Cardiac Panel Stat 01/10/24 12:19 Blood Culture Stat 01/10/24 12:20 Respiratory Panel (Film Array) Stat 01/10/24 14:04 CT angio chest PE protocol Stat Acetaminophen (Acetaminophen 325 Mg Tablet) 650 mg PO Q6H PRN PRN Reason: Fever/Mild Pain (1-3) Albuterol/Ipratropium (Albuterol/Ipratropium 3 Ml Ampul) 3 ml INH [id number] COUNT INCLUDES THE [facility] Docusate Sodium (Docusate 100 Mg Capsule) 100 mg PO BID BRIDGER Doxycycline Hyclate (Doxycycline Hyclate 100 Mg Tablet) 100 mg PO BID BRIDGER Furosemide (Furosemide 40 Mg/4 Ml Vial) 40 mg IV Q12HR COUNT INCLUDES THE [facility] Heparin Sodium (Porcine) (Heparin 5,000 Unit/Ml Vial) 5,000 unit SUBCUT BID COUNT INCLUDES THE [facility] Methylprednisolone (Methylprednisolone 125 Mg/2 Ml Vial) 60 mg IV Q6HR BRIDGER Naloxone HCl (Naloxone 0.4 Mg/Ml Vial) 0.2 mg IV Q2MIN PRN PRN Reason: Opiate Reversal Nicotine (Nicotine 21 Mg Patch) 21 mg TOP DAILY COUNT INCLUDES THE [facility] Oxycodone HCl (Oxycodone Ir 5 Mg Tablet) 7.5 mg PO Q4HR PRN PRN Reason: Pain, Moderate (4-6) Discontinued Medications Albuterol (Albuterol 2.5 Mg/3 Ml Neb (Adult)) 5 mg INH NOW ONE Stop: 01/10/24 12:06 Last Admin: 01/10/24 12:23 Dose: 5 mg Documented By: RUSLAN Furosemide 60 mg/ Sodium (Chloride) 56 mls @ 112 mls/hr IV NOW ONE Stop: 01/10/24 12:20 Last Infusion: 01/10/24 13:12 Dose: Infused Documented By: RUSLAN(2) Admin: 01/10/24 12:34 Dose: 112 mls/hr Documented By: RUSLAN Vital Signs Vital signs: Vital Signs - 8 hr 01/10/24 11:40 01/10/24 11:50 01/10/24 11:51 Temperature 99.4 F Pulse Rate 106 H 106 H Respiratory Rate 32 H Blood Pressure 145/73 H Pulse Oximetry 82 L 97 94 Oxygen Delivery Method Room Air Nasal Cannula Oxygen Flow Rate 2 2 01/10/24 11:51 01/10/24 12:00 01/10/24 12:30 Temperature Pulse Rate 102 H 98 H Respiratory Rate 37 H 24 Blood Pressure 162/77 H Pulse Oximetry 92 91 Oxygen Delivery Method Nasal Cannula Oxygen Flow Rate 2 2 01/10/24 12:39 01/10/24 13:00 01/10/24 13:30 Temperature Pulse Rate 103 H 96 H Respiratory Rate 13 Blood Pressure Pulse Oximetry 98 91 91 Oxygen Delivery Method Nasal Cannula Nasal Cannula Nasal Cannula Oxygen Flow Rate 2 2 2 01/10/24 13:31 01/10/24 13:31 01/10/24 13:45 Temperature Pulse Rate 96 H 92 H Respiratory Rate 29 H Blood Pressure 174/81 H Pulse Oximetry 91 95 Oxygen Delivery Method Nasal Cannula Nasal Cannula Oxygen Flow Rate 2 4 01/10/24 13:45 01/10/24 14:00 01/10/24 14:00 Temperature Pulse Rate 93 H 90 Respiratory Rate 32 H 22 Blood Pressure 159/75 H 155/90 H Pulse Oximetry 93 94 Oxygen Delivery Method Nasal Cannula Nasal Cannula Oxygen Flow Rate 4 4 01/10/24 14:31 01/10/24 14:34 01/10/24 14:34 Temperature Pulse Rate 89 84 Respiratory Rate 24 26 H Blood Pressure 169/85 H Pulse Oximetry 97 96 Oxygen Delivery Method Oxygen Flow Rate 4 01/10/24 14:45 01/10/24 14:45 01/10/24 14:59 Temperature Pulse Rate 84 88 Respiratory Rate 22 20 Blood Pressure 173/93 H 173/93 H Pulse Oximetry 96 94 Oxygen Delivery Method Nasal Cannula Nasal Cannula Oxygen Flow Rate 4 4 01/10/24 15:00 01/10/24 15:00 01/10/24 15:15 Temperature Pulse Rate 95 H 98 H Respiratory Rate 24 26 H Blood Pressure 166/83 H Pulse Oximetry 96 96 Oxygen Delivery Method Nasal Cannula Oxygen Flow Rate 4 01/10/24 15:15 01/10/24 15:29 01/10/24 15:29 Temperature Pulse Rate 93 H Respiratory Rate 27 H Blood Pressure 151/83 H 161/80 H Pulse Oximetry 93 Oxygen Delivery Method Nasal Cannula Oxygen Flow Rate 4 01/10/24 15:30 01/10/24 15:30 01/10/24 15:45 Temperature Pulse Rate 96 H Respiratory Rate 28 H Blood Pressure 152/84 H 151/85 H Pulse Oximetry 94 Oxygen Delivery Method Nasal Cannula Oxygen Flow Rate 4 01/10/24 15:45 01/10/24 16:09 Temperature Pulse Rate 87 115 H Respiratory Rate 21 40 H Blood Pressure Pulse Oximetry 96 92 Oxygen Delivery Method Nasal Cannula Oxygen Flow Rate 4 Medical Decision Making Medical Records Medical records reviewed: Yes I reviewed the patient's medical records. Lab Data Lab results reviewed: Yes I reviewed the patient's lab results. 01/10/24 12:00 01/10/24 12:00 Labs: Lab Results 01/10/24 01/10/24 Range/Units 12:00 12:20 WBC 6.6 (4.5-11.0) X10^3/uL RBC 5.38 (4.5-5.9) X10^6/uL Hgb 16.2 (13.5-17.5) g/dL Hct 51.1 (41-53) % MCV 95.0 (80-100) fL MCH 30.1 (26-34) PG MCHC 31.7 (30-36) % RDW 15.8 H (11.6-14.8) % Plt Count 281 (150-400) X10^3/uL Neut % (Auto) 72.2 (50-75) % Lymph % (Auto) 17.8 L (25-40) % [place] % (Auto) 7.8 (3-14) % Eos % (Auto) 1.2 L (2-4) % Baso % (Auto) 1.0 (0-2) % Neut # (Auto) 4800 (4654-4544) /uL Lymph # (Auto) 1200 (7867-7008) /uL [place] # (Auto) 500 (0-900) /uL Eos # (Auto) 100 (0-450) /uL Baso # (Auto) 100 (0-100) /uL PT 12.5 (9.4-12.5) SECONDS INR 1.1 (0.9-1.3) APTT 35 (25.1-36.5) SECONDS Sodium 141 (137-145) mmol/L Potassium 4.3 (3.4-5.1) mmol/L Chloride 99 (98-107) mmol/L Carbon Dioxide 38 H (22-32) mmol/L BUN 9 (9-20) mg/dL Creatinine 0.70 (0.66-1.25) mg/dL Estimated GFR > 60 (>60) mL/min BUN/Creatinine Ratio 12.9 (6-22) Glucose 117 H (80-110) mg/dL Lactate 1.7 (0.7-2.1) mmol/L Calcium 8.4 (8.4-10.2) mg/dL Total Bilirubin 0.6 (0.2-1.3) mg/dL AST 29 (17-59) IU/L ALT 21 (<50) IU/L Alkaline Phosphatase 104 (38-126) U/L Total Creatine Kinase 42 L (55-170) U/L Troponin I 0.089 H (0.01-0.034) ng/mL NT-Pro-B Natriuret Pep 1170 H (<125) pg/mL Total Protein 8.0 (6.3-8.2) g/dL Albumin 4.6 (3.5-5.0) g/dL Globulin 3.4 (1.7-4.1) g/dL Albumin/Globulin Ratio 1.4 (1.0-2.8) Lipase 81 (23-300) U/L Procalcitonin 0.04 (<0.5) ng/mL Chlamy pneumoniae PCR Not detected (Not Detect) Adenovirus (PCR) Not detected (Not Detect) B.parapertussis DNA PCR Not detected (Not Detecte) Coronavirus OC43 (PCR) Not detected (Not Detect) Coronavirus HKU1 (PCR) Not detected (Not Detect) Coronavirus 229E (PCR) Not detected (Not Detect) SARS-CoV-2 (PCR) Not detected (Not Detecte) Coronavirus NL63 (PCR) Not detected (Not Detect) Human Metapneumovir PCR Not detected (Not Detect) Influenza Type A (PCR) Not detected (Not Detect) Influenza Type B (PCR) Not detected (Not Detect) M. pneumoniae (PCR) Not detected (Not Detect) Parainfluenza 1 (PCR) Not detected (Not Detect) Parainfluenza 2 (PCR) Not detected (Not Detect) Parainfluenza 3 (PCR) Not detected (Not Detect) Parainfluenza 4 (PCR) Not detected (Not Detect) RSV (PCR) Not detected (Not Detect) Entero/Rhino (PCR) Not detected (Not Detect) Imaging Data CT scan - chest: Radiologist's Impression: PROCEDURE: CT ANGIO CHEST PE PROTOCOL INDICATIONS: Chest pain, shortness of breath, tachycardia TECHNIQUE: After the administration of intravenous contrast, 2 mm thick sections acquired from the pulmonary apices to the posterior costophrenic angles. 3-dimensional maximum intensity projection (MIP) coronal and sagittal reformats were then acquired through the thorax. For radiation dose reduction, the following was used: automated exposure control, adjustment of mA and/or kV according to patient size. COMPARISON: None. FINDINGS: Image quality: Diagnostic. Pulmonary arteries: Pulmonary arteries are normal in size, and demonstrate no intraluminal filling defects to suggest central pulmonary embolism. Lower Neck: No enlarged lymph nodes. Thyroid: No thyroid nodules which require sonographic follow up, per consensus guidelines. Axillae: No enlarged lymph nodes. Chest Wall: Unremarkable. Bones: Unremarkable. Lungs and Pleura: No pneumothorax or pleural effusions. 9 mm perifissural nodule, left lung, medially. Reference image 142 of series 6. No other pulmonary nodules. Minimal atelectasis versus consolidation in the extreme right lung base. Heart: Heart size is normal. No pericardial effusion. Thoracic Vessels: No aortic aneurysm. Mediastinum and Alfreda: No enlarged lymph nodes. Esophagus: No wall thickening. No hiatal hernia. Upper Abdomen: Visualized upper abdomen solid organs and bowel loops appear normal. IMPRESSION: 1. No acute pulmonary emboli. 2. Small focal area of atelectasis versus focal pneumonia in the posterior basal right lower lobe. 3. 9 mm perifissural nodule, left lung. Comment: Recommend six-month follow-up CT to re-evaluate the 9 mm nodule Chest x-ray: Radiologist's Impression: PROCEDURE: XR CHEST 1V INDICATIONS: SOB TECHNIQUE: One view of the chest was acquired. COMPARISON: [facility], , XR CHEST 2V, 02/20/2023, 12:39. FINDINGS: Surgical changes and devices: None. Lungs and pleura: Lungs are clear. No pleural effusions or pneumothorax. Mediastinum: Mediastinal contours appear normal. Heart size is normal. Bones and chest wall: No suspicious bony lesions. Overlying soft tissues appear unremarkable. IMPRESSION: No acute cardiopulmonary abnormality is seen. ECG Data Attestation: I personally reviewed and interpreted this ECG as follows: Interpretation: Sinus tachycardia Ventricular rate 101 Normal axis Normal QRS Normal QTC No ST T wave changes MDM Narrative Medical decision making narrative: Bilateral lower extremity edema with redness although I suspect that this is more chronic venous stasis changes and chronic swelling changes versus cellulitis. He is afebrile. It is not warm to the touch. He is chronic ulcerations that do not appear to be infected. Patient does have crackles bilaterally. He has swelling in his lower extremities. He states that he has never been diagnosed with heart failure although he has been on Lasix in the past. He was given Lasix here in the ER. Diuresed approximately 1 L. Reports some improvement of his breathing however when we took him off of oxygen and just sat him up in bed he desatted to the mid 80s and became very tachypneic. Patient does have a history of a pulmonary embolism. CT scan does not show signs of pulmonary embolism. I also feel that pneumonia is unlikely. Plan will be to admit to the hospital for continued diuresis and possibly consideration for an echocardiogram. Discuss this with the patient who expressed understanding. Discussed the case with Dr. Killian hospitalist on-call who will admit. Discharge Plan Departure Patient Disposition: Admitted As Inpatient Clinical Impression: Bilateral lower extremity edema, Hypoxia, Skin ulcer Admit Date/Time: 01/10/24 16:12 Admit Provider: Javier Killian
[2024-01-10 12:15] LABS: Add Manual Diff / Slide Review NO; Basophils Absolute Auto 100 /uL (0-100); Eosinophils Absolute Auto 100 /uL (0-450); Eosinophils Percent Auto 1.2 % (2-4); Hematocrit 51.1 % (41-53); Hemoglobin 16.2 g/dL (13.5-17.5); Lymphocytes Absolute Auto 1200 /uL (1100-4500); Lymphocytes Percent Auto 17.8 % (25-40); Mean Corpuscular HGB Conc 31.7 % (30-36); Mean Corpuscular Hemoglobin 30.1 PG (26-34); Monocytes Absolute Auto 500 /uL (0-900); Monocytes Percent Auto 7.8 % (3-14); Neutrophils Absolute Auto 4800 /uL (1500-7000); Neutrophils Percent Auto 72.2 % (50-75); Platelet Count 281 X10^3/uL (150-400); Red Blood Cell Count 5.38 X10^6/uL (4.5-5.9); Red Cell Distribution Width 15.8 % (11.6-14.8); White Blood Cell Count 6.6 X10^3/uL (4.5-11.0)
[2024-01-10 12:22] LABS: INR 1.1 (0.9-1.3); Prothrombin Time 12.5 SECONDS (9.4-12.5)
[2024-01-10] MEDS: ALBUTEROL 2.5 MG/3 ML NEB (ADULT) 5 MG INH (12:23)
[2024-01-10 12:24] LABS: PTT Partial Thromboplastin Tim 35 SECONDS (25.1-36.5)
[2024-01-10 12:26] LABS: Alanine Aminotransferase 21 IU/L (<50); Albumin 4.6 g/dL (3.5-5.0); Albumin Globulin Ratio 1.4 (1.0-2.8); Alkaline Phosphatase 104 U/L (38-126); Aspartate Aminotransferase 29 IU/L (17-59); BUN Creatinine Ratio 12.9 (6-22); Bilirubin Total 0.6 mg/dL (0.2-1.3); Blood Urea Nitrogen 9 mg/dL (9-20); Calcium 8.4 mg/dL (8.4-10.2); Carbon Dioxide 38 mmol/L (22-32); Chloride 99 mmol/L (98-107); Creatine Kinase 42 U/L (55-170); Estimated Glomerular Filt Rate > 60 mL/min (>60); Globulin 3.4 g/dL (1.7-4.1); Glucose 117 mg/dL (80-110); HEMOLYSIS 23 (0-50); Lipase 81 U/L (23-300); Potassium 4.3 mmol/L (3.4-5.1); Sodium 141 mmol/L (137-145)
[2024-01-10 12:27] LABS: Lactate (Lactic Acid) 1.7 mmol/L (0.7-2.1)
[2024-01-10] MEDS: FUROSEMIDE 60 MG in SODIUM CHLORIDE 0.9% 50 ML 112 MG IV (12:34)
[2024-01-10 12:35] LABS: NT-proBNP (BNP-Adult 18+) 1170 pg/mL (<125)
[2024-01-10 12:38] LABS: Troponin I 0.089 ng/mL (0.01-0.034)
[2024-01-10 12:43] LABS: Procalcitonin 0.04 ng/mL (<0.5)
[2024-01-10 13:11] LABS: Adenovirus Not Detected (Not Detect); B. parapertussis Not Detected (Not Detecte); Bordetella pertussis Not Detected (Not Detect); Chlamydophila pneumoniae Not Detected (Not Detect); Coronavirus 229E Not Detected (Not Detect); Coronavirus HKU1 Not Detected (Not Detect); Coronavirus NL 63 Not Detected (Not Detect); Coronavirus OC43 Not Detected (Not Detect); Human Metapneumovirus Not Detected (Not Detect); Human Rhinovirus/Enterovirus Not Detected (Not Detect); Influenza A Not Detected (Not Detect); Influenza B Not Detected (Not Detect); Mycoplasma pneumoniae Not Detected (Not Detect); Parainfluenza Virus 1 Not Detected (Not Detect); Parainfluenza Virus 2 Not Detected (Not Detect); Parainfluenza Virus 3 Not Detected (Not Detect); Parainfluenza Virus 4 Not Detected (Not Detect); Respiratory Syncytial Virus Not Detected (Not Detect); SARS- CoV-2 Not Detected (Not Detecte)
--- NOTE | 2024-01-10 14:04 | DI.CT.S_ITS ---
PROCEDURE: CT ANGIO CHEST PE PROTOCOL INDICATIONS: Chest pain, shortness of breath, tachycardia TECHNIQUE: After the administration of intravenous contrast, 2 mm thick sections acquired from the pulmonary apices to the posterior costophrenic angles. 3-dimensional maximum intensity projection (MIP) coronal and sagittal reformats were then acquired through the thorax. For radiation dose reduction, the following was used: automated exposure control, adjustment of mA and/or kV according to patient size. COMPARISON: None. FINDINGS: Image quality: Diagnostic. Pulmonary arteries: Pulmonary arteries are normal in size, and demonstrate no intraluminal filling defects to suggest central pulmonary embolism. Lower Neck: No enlarged lymph nodes. Thyroid: No thyroid nodules which require sonographic follow up, per consensus guidelines. Axillae: No enlarged lymph nodes. Chest Wall: Unremarkable. Bones: Unremarkable. Lungs and Pleura: No pneumothorax or pleural effusions. 9 mm perifissural nodule, left lung, medially. Reference image 142 of series 6. No other pulmonary nodules. Minimal atelectasis versus consolidation in the extreme right lung base. Heart: Heart size is normal. No pericardial effusion. Thoracic Vessels: No aortic aneurysm. Mediastinum and Alfreda: No enlarged lymph nodes. Esophagus: No wall thickening. No hiatal hernia. Upper Abdomen: Visualized upper abdomen solid organs and bowel loops appear normal. IMPRESSION: 1. No acute pulmonary emboli. 2. Small focal area of atelectasis versus focal pneumonia in the posterior basal right lower lobe. 3. 9 mm perifissural nodule, left lung. Comment: Recommend six-month follow-up CT to re-evaluate the 9 mm nodule. Dictated by: Vineet Garibay M.D. on 01/10/2024 at 14:56 Approved by: Vineet Garibay M.D. on 01/10/2024 at 15:01
--- NOTE | 2024-01-10 15:56 | PM.HP.1 ---
History of Present Illness History of Present Illness Date Patient Seen: 01/10/24 Chief complaint: big wound R leg, draining, sob Narrative: The patient is a 58-year-old male with a history of tobacco use and chronic use of inhalers. The patient has home oxygen which he does not use. He came to the emergency department today with acute dyspnea. There was no complaint of chest pain, and is cough is chronic and at his baseline. In the emergency department he was hypoxemic. He does have a distant history of pulmonary embolism, CT pulmonary angiogram was negative for PE, pleural effusion, or overt pulmonary edema. The patient was diuresed in the emergency department. He has no known history of heart failure. He denies any leg swelling, or orthopnea. His initial troponin was negative and his BNP was mildly elevated. He notes that he has been ill for several days with a cough. He denies rhinorrhea, or fevers. No orthopnea. He has had right leg swelling for several great days with weeping. He denies any trauma to the leg. He also continues to smoke about 80% of a pack of cigarettes a day and has been doing so for 40 years. He drinks about 3 beers a day denies any alcohol withdrawal symptoms if he does not drink in the earlier part of the day. He also notes the cough has been primarily nonproductive. He has no history of heart failure. He denies any chest pain, or palpitations. He also denies any nausea. He is pronounced psoriasis on his elbows greater than his knees. He has not been using a cream for this or any other remedy recently. He lives alone in [facility]. He denies any other drug use. FORMERLY [facility], [facility] Medical History Hypoxia Degenerative joint disease of both hips Chronic pain of both knees Gout Bilateral lower extremity edema Chronic pain Iliotibial band syndrome, left leg Tobacco abuse counseling Right hip pain Social History Smoking Status: Current every day smoker Tobacco: How many years used: 45 alcohol intake: current substance use type: does not use Meds Home Medications and Allergies Home Medications Medication Instructions Recorded Confirmed Type albuterol sulfate 90 mcg/actuation 2 puff inhalation Q4H PRN 08/12/20 01/10/24 Rx aerosol inhaler (Proventil HFA) shortness of breath or wheezing #8.5 ea tiotropium bromide 2.5 2 puff inhalation DAILY #4 grams 02/09/22 01/10/24 Rx mcg/actuation mist for inhalation (Spiriva Respimat) betamethasone dipropionate 0.05 % See Rx Instructions .Route 11/25/22 01/10/24 Rx topical ointment .COMPLEX #45 grams varenicline 1 mg tablet 1 mg PO BID #56 tabs 03/14/23 01/10/24 Rx hydrocodone 7.5 mg-acetaminophen See Rx Instructions .Route 12/11/23 01/10/24 Rx 325 mg tablet .COMPLEX #150 tabs aspirin 81 mg tablet,delayed 81 mg PO QAM 01/10/24 01/10/24 History release docusate sodium 100 mg capsule 100 mg PO BID PRN constipation 01/10/24 01/10/24 History lisinopril 20 mg tablet 20 mg PO BID 01/10/24 01/10/24 History Allergies Allergy/AdvReac Type Severity Reaction Status Date / Time No Known Drug Allergies Allergy Unknown Verified 09/12/23 12:01 Review of Systems Review of Systems Narrative: All else reviewed and otherwise unremarkable except as noted in the history and physical. Exam Vital Signs (past 8 hours): - 01/10/24 11:40 01/10/24 11:50 01/10/24 11:51 Temperature 99.4 F Pulse Rate 106 H 106 H Respiratory Rate 32 H Blood Pressure 145/73 H Pulse Oximetry 82 L 97 94 Oxygen Delivery Method Room Air Nasal Cannula Oxygen Flow Rate 2 2 01/10/24 11:51 01/10/24 12:00 01/10/24 12:30 Temperature Pulse Rate 102 H 98 H Respiratory Rate 37 H 24 Blood Pressure 162/77 H Pulse Oximetry 92 91 Oxygen Delivery Method Nasal Cannula Oxygen Flow Rate 2 2 01/10/24 12:39 01/10/24 13:00 01/10/24 13:30 Temperature Pulse Rate 103 H 96 H Respiratory Rate 13 Blood Pressure Pulse Oximetry 98 91 91 Oxygen Delivery Method Nasal Cannula Nasal Cannula Nasal Cannula Oxygen Flow Rate 2 2 2 01/10/24 13:31 01/10/24 13:31 01/10/24 13:45 Temperature Pulse Rate 96 H 92 H Respiratory Rate 29 H Blood Pressure 174/81 H Pulse Oximetry 91 95 Oxygen Delivery Method Nasal Cannula Nasal Cannula Oxygen Flow Rate 2 4 01/10/24 13:45 01/10/24 14:00 01/10/24 14:00 Temperature Pulse Rate 93 H 90 Respiratory Rate 32 H 22 Blood Pressure 159/75 H 155/90 H Pulse Oximetry 93 94 Oxygen Delivery Method Nasal Cannula Nasal Cannula Oxygen Flow Rate 4 4 01/10/24 14:31 01/10/24 14:34 01/10/24 14:34 Temperature Pulse Rate 89 84 Respiratory Rate 24 26 H Blood Pressure 169/85 H Pulse Oximetry 97 96 Oxygen Delivery Method Oxygen Flow Rate 4 01/10/24 14:45 01/10/24 14:45 01/10/24 14:59 Temperature Pulse Rate 84 88 Respiratory Rate 22 20 Blood Pressure 173/93 H 173/93 H Pulse Oximetry 96 94 Oxygen Delivery Method Nasal Cannula Nasal Cannula Oxygen Flow Rate 4 4 01/10/24 15:00 01/10/24 15:00 01/10/24 15:15 Temperature Pulse Rate 95 H 98 H Respiratory Rate 24 26 H Blood Pressure 166/83 H Pulse Oximetry 96 96 Oxygen Delivery Method Nasal Cannula Oxygen Flow Rate 4 01/10/24 15:15 01/10/24 15:29 01/10/24 15:29 Temperature Pulse Rate 93 H Respiratory Rate 27 H Blood Pressure 151/83 H 161/80 H Pulse Oximetry 93 Oxygen Delivery Method Nasal Cannula Oxygen Flow Rate 4 01/10/24 15:30 01/10/24 15:30 01/10/24 15:45 Temperature Pulse Rate 96 H Respiratory Rate 28 H Blood Pressure 152/84 H 151/85 H Pulse Oximetry 94 Oxygen Delivery Method Nasal Cannula Oxygen Flow Rate 4 01/10/24 15:45 Temperature Pulse Rate 87 Respiratory Rate 21 Blood Pressure Pulse Oximetry 96 Oxygen Delivery Method Nasal Cannula Oxygen Flow Rate 4 Oxygen Delivery Method Nasal Cannula Oxygen Flow Rate 4 Narrative Exam Narrative: NAD, alert and oriented, fluent speech, anxious, somewhat unkempt. He is morbidly obese. Normocephalic skull, EOMI, anicteric sclera, symmetric pupils. Oropharynx unremarkable, no droop. Neck supple, midline trachea, no adenopathy. Lungs are notable for expiratory wheezing as well as basilar rales and scattered rhonchi with a normal rate and effort. Heart regular, no murmur gallop or rub. Abdomen is soft, non distended and non tender. Extremities: The right lower extremity is wrapped and somewhat edematous. Both feet are pain can have normal capillary refill. Skin is free of rash or lesions. Joints are not swollen or deformed. Judgment appears to be normal. Objective ECG Impression: NSR Imaging Chest x-ray: Radiologist's impression: No acute cardiopulmonary abnormality is seen. CT scan - chest: Radiologist's impression: 1. No acute pulmonary emboli. 2. Small focal area of atelectasis versus focal pneumonia in the posterior basal right lower lobe. 3. 9 mm perifissural nodule, left lung. Comment: Recommend six-month follow-up CT to re-evaluate the 9 mm nodule. Labs 01/10/24 12:00 01/10/24 12:00 Labs: Laboratory Results - last 24 hr 01/10/24 01/10/24 12:00 12:20 WBC 6.6 RBC 5.38 Hgb 16.2 Hct 51.1 MCV 95.0 MCH 30.1 MCHC 31.7 RDW 15.8 H Plt Count 281 Neut % (Auto) 72.2 Lymph % (Auto) 17.8 L [place] % (Auto) 7.8 Eos % (Auto) 1.2 L Baso % (Auto) 1.0 Neut # (Auto) 4800 Lymph # (Auto) 1200 [place] # (Auto) 500 Eos # (Auto) 100 Baso # (Auto) 100 PT 12.5 INR 1.1 APTT 35 Sodium 141 Potassium 4.3 Chloride 99 Carbon Dioxide 38 H BUN 9 Creatinine 0.70 Estimated GFR > 60 BUN/Creatinine Ratio 12.9 Glucose 117 H Lactate 1.7 Calcium 8.4 Total Bilirubin 0.6 AST 29 ALT 21 Alkaline Phosphatase 104 Total Creatine Kinase 42 L Troponin I 0.089 H NT-Pro-B Natriuret Pep 1170 H Total Protein 8.0 Albumin 4.6 Globulin 3.4 Albumin/Globulin Ratio 1.4 Lipase 81 Procalcitonin 0.04 Chlamy pneumoniae PCR Not detected Adenovirus (PCR) Not detected B.parapertussis DNA PCR Not detected Coronavirus OC43 (PCR) Not detected Coronavirus HKU1 (PCR) Not detected Coronavirus 229E (PCR) Not detected SARS-CoV-2 (PCR) Not detected Coronavirus NL63 (PCR) Not detected Human Metapneumovir PCR Not detected Influenza Type A (PCR) Not detected Influenza Type B (PCR) Not detected M. pneumoniae (PCR) Not detected Parainfluenza 1 (PCR) Not detected Parainfluenza 2 (PCR) Not detected Parainfluenza 3 (PCR) Not detected Parainfluenza 4 (PCR) Not detected RSV (PCR) Not detected Entero/Rhino (PCR) Not detected Assessment & Plan Assessment & Plan narrative: 1. Acute hypoxic respiratory failure, present on admission and active. 2. COPD exacerbation, present on admission and active. 3. Elevated BNP, present on admission and active. 4. Psoriasis, present on admission and active. 5. Gout, present on admission and active. 6. Morbid obesity, present on admission and active. 7. Leg edema, right greater than left. Present on admission and active. 8. Tobacco dependence, present on admission and active. 9. Opiate dependence, present on admission and active. PLAN: -treat for COPD exacerbation with corticosteroids, and bronchodilators. -ECHO to assess LVEF -wean O2 as able. -continue chronic medications for gout (allopurinol), and HTN (lisinopril). -consider ultrasound of right leg if echo is unremarkable. -continue to diurese pending echo. Full code Admiited to observation , excpect a 1 [place] hospital stay. Time Spent With Patient Time with patient: 30 to 49 minutes with 50% spent counseling/coordinating care Quality MIPS - Admit I confirm the patient?s Advance Care Plan is present, Code status is documented, Surrogate decision maker is in patient?s record [If Yes, STOP here]: Yes MIPS - Meds 'Current medications' to include all prescriptions, [id number] products, herbals, cannabis/cannabidiol products, and vitamin/mineral/dietary (nutritional) supplements. I have utilized all available resources to obtain, update, or review the patient?s current medications. [If Yes, STOP here]: Yes
--- NOTE | 2024-01-10 16:35 | DI.ECHO.S_ITS ---
[facility] [facility]+ [facility] : : [address] : : [place] : : [address] : : Phone: [phone] Echocardiogram Report + + :Name: KB GONZALEZ Study Date: 01/11/2024 Height: 70 in : :[facility] ReadingLocation: Weight: 303 lb : : Gender: Male BSA: 2.5 m2 : :: 1965 Age: 58 yrs BP: 116/67 mmHg: :Reason For Study: DYSPNEA : :Ordering Physician: JESUS, : :OSIRIS Covarrubias Performed By: Mikayla Reece : :Referring: OSIRIS LEE : + + Interpretation Summary Normal sinus rhythm. Normal LV size, mildly increased wall thickness, normal wall motion and LV systolic function. EF is 65-70%. Normal chamber sizes. No valvular abnormalities. No prior study available for comparison. Procedure: A two-dimensional transthoracic echocardiogram with color flow and Doppler was performed. The study quality was technically difficult. There is no prior echocardiogram noted for this patient. The patient was in sinus rhythm with heart rates between 67-79 bpm during the exam. Left Ventricle: The left ventricle is normal in size. There is mild concentric left ventricular hypertrophy. The ejection fraction is estimated to be 65-70%. Right Ventricle: The right ventricle is mildly dilated. The right ventricular systolic function is normal. Atria: The left atrial size is normal. Right atrial size is normal. There is no Doppler evidence for an interatrial shunt. Mitral Valve: The mitral valve is normal in structure and function. There is no mitral regurgitation noted. Aortic Valve: The aortic valve is trileaflet. The aortic valve opens well. There is no aortic valve stenosis. No aortic regurgitation is present. Tricuspid Valve: The tricuspid valve is normal in structure and function. There is trace tricuspid regurgitation. Pulmonic Valve: The pulmonic valve is not well visualized. There is trace pulmonic regurgitation. Great Vessels: The aortic root is normal size. The dimensions of the ascending aorta are normal. The IVC is of normal diameter and collapses greater than 50% with a sniff. This suggests a low right atrial pressure of 3 mm Hg. Pericardium/ Pleura There is no pericardial effusion. There is no pleural effusion. MMode/2D Measurements & Calculations LVIDd: 4.8 cm LVOT diam: 2.1 cm LVIDs: 3.2 cm Ao root diam: 3.1 cm FS: 33.3 % asc Aorta Diam: 3.1 cm IVSd: 1.2 cm Ao Arch Diam (Prox Trans): 3.3 cm LVPWd: 1.3 cm LV richards. diameter/BSA (cm/m^2): 1.9 LV sys. diameter/BSA (cm/m^2): 1.3 LA A2 area: 18.5 cm2 RA long axis: 5.2 cm LA A4 area: 21.1 cm2 RA area: 19.0 cm2 LA length (vol): 7.0 cm RA vol: 59.3 ml LA vol: 47.3 ml RA : 23.8 ml/m2 LA vol index: 19.0 ml/m2 IVC diam: 1.8 cm RVD1 (basal): 4.3 cm TAPSE: 2.2 cm Doppler Measurements & Calculations Ao V2 max: 160.1 cm/sec LVOT Max Kal: 109.3 cm/sec Ao V2 mean: 115.1 cm/sec LV V1 max P.8 mmHg Ao max P.3 mmHg LV V1 VTI: 22.2 cm Ao mean P.8 mmHg ABRAHAM(I,D): 2.6 cm2 Ao V2 VTI: 31.1 cm ABRAHAM(V,D): 2.5 cm2 sev ratio: 0.71 ABRAHAM indexed to BSA (cm^2/m^2): 1.0 MV E max kal: 83.8 cm/sec TR max kal: 230.4 cm/sec MV A max kal: 82.8 cm/sec TR max P.2 mmHg MV E/A: 1.0 PA V2 max: 97.4 cm/sec Med Peak E' Kal: 6.1 cm/sec PA V2 mean: 60.9 cm/sec E/E' med: 13.8 PA mean P.7 mmHg Lat Peak E' Kal: 8.6 cm/sec PA pr(Accel): 48.2 mmHg E/E' lat: 9.7 E/e' average: 11.8 MV dec time: 0.25 sec SV(LVOT): 79.7 ml Electronically signed by: Jeannie Watts M.D. on Reading Physician:01/11/2024 03:50 PM
[2024-01-10 17:20] LABS: Troponin I 0.107 ng/mL (0.01-0.034)
[2024-01-10 18:03] LABS: MRSA (Nasal) PCR NOT DETECTED (Not Detect)
[2024-01-10] MEDS: FUROSEMIDE 40 MG/4 ML VIAL IV (18:39)
[2024-01-10] MEDS: methylPREDNISolone 125 MG/2 ML VIAL 60 MG IV ×2 (18:39→23:40)
--- NOTE | 2024-01-10 19:10 | PC.ADMIT ---
[email or web address] Admission Note: The patient,aPrth Reid,58 y/o, was given written information regarding hospital policies, unit procedures and contact persons. Patient's smoking status: Current every day smoker. Vital Signs - 8 hr 01/10/24 11:40 01/10/24 11:50 01/10/24 11:51 Temperature 99.4 F Pulse Rate 106 H 106 H Respiratory Rate 32 H Blood Pressure 145/73 H Pulse Oximetry 82 L 97 94 Oxygen Delivery Method Room Air Nasal Cannula Oxygen Flow Rate 2 2 01/10/24 11:51 01/10/24 12:00 01/10/24 12:30 Temperature Pulse Rate 102 H 98 H Respiratory Rate 37 H 24 Blood Pressure 162/77 H Pulse Oximetry 92 91 Oxygen Delivery Method Nasal Cannula Oxygen Flow Rate 2 2 01/10/24 12:39 01/10/24 13:00 01/10/24 13:30 Temperature Pulse Rate 103 H 96 H Respiratory Rate 13 Blood Pressure Pulse Oximetry 98 91 91 Oxygen Delivery Method Nasal Cannula Nasal Cannula Nasal Cannula Oxygen Flow Rate 2 2 2 01/10/24 13:31 01/10/24 13:31 01/10/24 13:45 Temperature Pulse Rate 96 H 92 H Respiratory Rate 29 H Blood Pressure 174/81 H Pulse Oximetry 91 95 Oxygen Delivery Method Nasal Cannula Nasal Cannula Oxygen Flow Rate 2 4 01/10/24 13:45 01/10/24 14:00 01/10/24 14:00 Temperature Pulse Rate 93 H 90 Respiratory Rate 32 H 22 Blood Pressure 159/75 H 155/90 H Pulse Oximetry 93 94 Oxygen Delivery Method Nasal Cannula Nasal Cannula Oxygen Flow Rate 4 4 01/10/24 14:31 01/10/24 14:34 01/10/24 14:34 Temperature Pulse Rate 89 84 Respiratory Rate 24 26 H Blood Pressure 169/85 H Pulse Oximetry 97 96 Oxygen Delivery Method Oxygen Flow Rate 4 01/10/24 14:45 01/10/24 14:45 01/10/24 14:59 Temperature Pulse Rate 84 88 Respiratory Rate 22 20 Blood Pressure 173/93 H 173/93 H Pulse Oximetry 96 94 Oxygen Delivery Method Nasal Cannula Nasal Cannula Oxygen Flow Rate 4 4 01/10/24 15:00 01/10/24 15:00 01/10/24 15:15 Temperature Pulse Rate 95 H 98 H Respiratory Rate 24 26 H Blood Pressure 166/83 H Pulse Oximetry 96 96 Oxygen Delivery Method Nasal Cannula Oxygen Flow Rate 4 01/10/24 15:15 01/10/24 15:29 01/10/24 15:29 Temperature Pulse Rate 93 H Respiratory Rate 27 H Blood Pressure 151/83 H 161/80 H Pulse Oximetry 93 Oxygen Delivery Method Nasal Cannula Oxygen Flow Rate 4 01/10/24 15:30 01/10/24 15:30 01/10/24 15:45 Temperature Pulse Rate 96 H Respiratory Rate 28 H Blood Pressure 152/84 H 151/85 H Pulse Oximetry 94 Oxygen Delivery Method Nasal Cannula Oxygen Flow Rate 4 01/10/24 15:45 01/10/24 16:09 01/10/24 16:18 Temperature Pulse Rate 87 115 H Respiratory Rate 21 40 H Blood Pressure Pulse Oximetry 96 92 Oxygen Delivery Method Nasal Cannula Nasal Cannula Oxygen Flow Rate 4 pt arrived via gurney from ED, connected to all monitoring equipment, VSS, remains on 4L NC sats 94%, oriented to room and call light system, able to make needs known, no further needs at this time
[2024-01-10] MEDS: ALBUTEROL/IPRATROPIUM 3 ML AMPUL INH (19:37)
[2024-01-10] MEDS: HYDROCODONE/ACET 10/325 TABLET 1 TAB PO (19:46)
[2024-01-10] MEDS: HEPARIN 5,000 UNIT/ML VIAL 5000 UNIT IV (20:28)
[2024-01-10] MEDS: ASPIRIN EC 81 MG TABLET PO (20:28)
[2024-01-10] MEDS: DOCUSATE 100 MG CAPSULE PO (20:34)
[2024-01-10] MEDS: DOXYCYCLINE HYCLATE 100 MG TABLET PO (20:34)
[2024-01-10 20:37] LABS: PTT Partial Thromboplastin Tim 37 SECONDS (25.1-36.5)
[2024-01-10] MEDS: HEPARIN DRIP 25,000 UNIT/500 ML IV.SOLN 32.985 UNIT IV (20:39)
[2024-01-10 20:52] LABS: Troponin I 0.091 ng/mL (0.01-0.034)
[2024-01-11] VITALS (61 sets, daily range): BP systolic 108–186; BP diastolic 55–125; PULSE 62–110; RESP 13–44; TEMP 36.1–36.2; O2SAT 42–100
[2024-01-11 02:47] LABS: Add Manual Diff / Slide Review NO; BUN Creatinine Ratio 16.9 (6-22); Basophils Absolute Auto 0 /uL (0-100); Basophils Percent Auto 0.2 % (0-2); Blood Urea Nitrogen 13 mg/dL (9-20); Calcium 8.4 mg/dL (8.4-10.2); Chloride 92 mmol/L (98-107); Eosinophils Absolute Auto 0 /uL (0-450); Estimated Glomerular Filt Rate > 60 mL/min (>60); Glucose 163 mg/dL (80-110); Hematocrit 56.8 % (41-53); Hemoglobin 17.8 g/dL (13.5-17.5); Lymphocytes Absolute Auto 700 /uL (1100-4500); Lymphocytes Percent Auto 9.7 % (25-40); Mean Corpuscular HGB Conc 31.4 % (30-36); Mean Corpuscular Hemoglobin 30.1 PG (26-34); Mean Corpuscular Volume 95.8 fL (80-100); Monocytes Absolute Auto 100 /uL (0-900); Monocytes Percent Auto 1.5 % (3-14); Neutrophils Absolute Auto 6000 /uL (1500-7000); Neutrophils Percent Auto 88.6 % (50-75); Platelet Count 234 X10^3/uL (150-400); Red Blood Cell Count 5.92 X10^6/uL (4.5-5.9); Sodium 141 mmol/L (137-145); White Blood Cell Count 6.7 X10^3/uL (4.5-11.0)
[2024-01-11 02:54] LABS: Carbon Dioxide 39 mmol/L (22-32); HEMOLYSIS 27 (0-50)
[2024-01-11 03:09] LABS: Potassium 5.4 mmol/L (3.4-5.1)
[2024-01-11 03:43] LABS: PTT Partial Thromboplastin Tim 135 SECONDS (25.1-36.5)
[2024-01-11] MEDS: methylPREDNISolone 125 MG/2 ML VIAL 60 MG IV ×3 (05:12→18:16)
[2024-01-11] MEDS: FUROSEMIDE 40 MG/4 ML VIAL IV ×2 (06:03→18:16)
--- NOTE | 2024-01-11 07:20 | P.PN_ITS ---
Subjective Subjective Interval history: He was agitated and confused this morning. He was started on Ativan IV per CIWA protocol and has improved. He is now somnolent and comfortable. He has not able to answer questions due to his withdrawal symptoms. He states he drinks 3 beers a day. He would denied a history of withdrawal issues when he was initially admitted. He did have a significant troponin elevation was started on heparin and aspirin yesterday. He denies a history of cardiac issues. Exam Vital Signs (past 8 hours): - 01/10/24 23:30 01/10/24 23:31 01/10/24 23:31 Temperature Pulse Rate 95 H 96 H Respiratory Rate 20 23 Blood Pressure 167/81 H Pulse Oximetry 93 92 01/10/24 23:32 01/10/24 23:32 01/10/24 23:39 Temperature 98.7 F Pulse Rate 90 Respiratory Rate 21 Blood Pressure 163/71 H Pulse Oximetry 92 01/11/24 00:00 01/11/24 00:00 01/11/24 00:30 Temperature Pulse Rate 90 87 Respiratory Rate 15 15 Blood Pressure 150/70 H Pulse Oximetry 94 94 01/11/24 01:00 01/11/24 01:00 01/11/24 01:30 Temperature Pulse Rate 95 H 89 Respiratory Rate 21 19 Blood Pressure 160/85 H Pulse Oximetry 92 90 L 01/11/24 02:00 01/11/24 02:00 01/11/24 02:02 Temperature Pulse Rate 95 H Respiratory Rate 18 Blood Pressure 186/86 H 178/83 H Pulse Oximetry 83 L 01/11/24 02:02 01/11/24 02:30 01/11/24 03:00 Temperature Pulse Rate 92 H 101 H 101 H Respiratory Rate 19 30 H 44 H Blood Pressure Pulse Oximetry 82 L 95 42 L 01/11/24 03:03 01/11/24 03:03 01/11/24 03:30 Temperature Pulse Rate 100 H 99 H Respiratory Rate 30 H 27 H Blood Pressure 161/80 H Pulse Oximetry 76 L 96 01/11/24 04:00 01/11/24 04:30 01/11/24 05:00 Temperature Pulse Rate 100 H 103 H 99 H Respiratory Rate 21 21 21 Blood Pressure Pulse Oximetry 96 96 95 01/11/24 05:07 01/11/24 05:30 01/11/24 06:00 Temperature 96.9 F L Pulse Rate 94 H 88 Respiratory Rate 18 19 Blood Pressure Pulse Oximetry 96 97 01/11/24 06:30 01/11/24 07:01 Temperature Pulse Rate 94 H 110 H Respiratory Rate 22 Blood Pressure Pulse Oximetry 98 91 Oxygen Delivery Method Nasal Cannula Oxygen Flow Rate 4 Narrative Exam Narrative: NAD, somnolent. Not really able to answer questions. Breathing comfortably. Lungs are clear, normal rate and effort. Some scattered rhonchi. Heart is regular, no murmur gallop or rub. Abdomen is soft, non distended. Extremities are with 1+ edema. No overt erythema. Objective Imaging Venous US: Radiologist's impression: Bilateral legs are negative for DVT. CT scan - chest: Radiologist's impression: 1. No acute pulmonary emboli. 2. Small focal area of atelectasis versus focal pneumonia in the posterior basal right lower lobe. 3. 9 mm perifissural nodule, left lung. Comment: Recommend six-month follow-up CT to re-evaluate the 9 mm nodule. Labs 01/11/24 02:20 01/11/24 02:20 Labs: Laboratory Results - last 24 hr 01/10/24 01/10/24 01/10/24 12:00 12:20 14:47 WBC 6.6 RBC 5.38 Hgb 16.2 Hct 51.1 MCV 95.0 MCH 30.1 MCHC 31.7 RDW 15.8 H Plt Count 281 Neut % (Auto) 72.2 Lymph % (Auto) 17.8 L [place] % (Auto) 7.8 Eos % (Auto) 1.2 L Baso % (Auto) 1.0 Neut # (Auto) 4800 Lymph # (Auto) 1200 [place] # (Auto) 500 Eos # (Auto) 100 Baso # (Auto) 100 PT 12.5 INR 1.1 APTT 35 Sodium 141 Potassium 4.3 Chloride 99 Carbon Dioxide 38 H BUN 9 Creatinine 0.70 Estimated GFR > 60 BUN/Creatinine Ratio 12.9 Glucose 117 H Lactate 1.7 Calcium 8.4 Total Bilirubin 0.6 AST 29 ALT 21 Alkaline Phosphatase 104 Total Creatine Kinase 42 L Troponin I 0.089 H 0.107 H NT-Pro-B Natriuret Pep 1170 H Total Protein 8.0 Albumin 4.6 Globulin 3.4 Albumin/Globulin Ratio 1.4 Lipase 81 Procalcitonin 0.04 Nasal Screen MRSA (PCR) Chlamy pneumoniae PCR Not detected Adenovirus (PCR) Not detected B.parapertussis DNA PCR Not detected Coronavirus OC43 (PCR) Not detected Coronavirus HKU1 (PCR) Not detected Coronavirus 229E (PCR) Not detected SARS-CoV-2 (PCR) Not detected Coronavirus NL63 (PCR) Not detected Human Metapneumovir PCR Not detected Influenza Type A (PCR) Not detected Influenza Type B (PCR) Not detected M. pneumoniae (PCR) Not detected Parainfluenza 1 (PCR) Not detected Parainfluenza 2 (PCR) Not detected Parainfluenza 3 (PCR) Not detected Parainfluenza 4 (PCR) Not detected RSV (PCR) Not detected Entero/Rhino (PCR) Not detected 01/10/24 01/10/24 01/11/24 16:29 20:17 02:20 WBC 6.7 RBC 5.92 H Hgb 17.8 H Hct 56.8 H MCV 95.8 MCH 30.1 MCHC 31.4 RDW 16.0 H Plt Count 234 Neut % (Auto) 88.6 H Lymph % (Auto) 9.7 L [place] % (Auto) 1.5 L Eos % (Auto) 0.0 L Baso % (Auto) 0.2 Neut # (Auto) 6000 Lymph # (Auto) 700 L [place] # (Auto) 100 Eos # (Auto) 0 Baso # (Auto) 0 PT INR APTT 37 H Sodium 141 Potassium 5.4 H Chloride 92 L Carbon Dioxide 39 H BUN 13 Creatinine 0.77 Estimated GFR > 60 BUN/Creatinine Ratio 16.9 Glucose 163 H Lactate Calcium 8.4 Total Bilirubin AST ALT Alkaline Phosphatase Total Creatine Kinase Troponin I 0.091 H NT-Pro-B Natriuret Pep Total Protein Albumin Globulin Albumin/Globulin Ratio Lipase Procalcitonin Nasal Screen MRSA (PCR) Not detected Chlamy pneumoniae PCR Adenovirus (PCR) B.parapertussis DNA PCR Coronavirus OC43 (PCR) Coronavirus HKU1 (PCR) Coronavirus 229E (PCR) SARS-CoV-2 (PCR) Coronavirus NL63 (PCR) Human Metapneumovir PCR Influenza Type A (PCR) Influenza Type B (PCR) M. pneumoniae (PCR) Parainfluenza 1 (PCR) Parainfluenza 2 (PCR) Parainfluenza 3 (PCR) Parainfluenza 4 (PCR) RSV (PCR) Entero/Rhino (PCR) 01/11/24 03:15 WBC RBC Hgb Hct MCV MCH MCHC RDW Plt Count Neut % (Auto) Lymph % (Auto) [place] % (Auto) Eos % (Auto) Baso % (Auto) Neut # (Auto) Lymph # (Auto) [place] # (Auto) Eos # (Auto) Baso # (Auto) PT INR APTT 135 H* D Sodium Potassium Chloride Carbon Dioxide BUN Creatinine Estimated GFR BUN/Creatinine Ratio Glucose Lactate Calcium Total Bilirubin AST ALT Alkaline Phosphatase Total Creatine Kinase Troponin I NT-Pro-B Natriuret Pep Total Protein Albumin Globulin Albumin/Globulin Ratio Lipase Procalcitonin Nasal Screen MRSA (PCR) Chlamy pneumoniae PCR Adenovirus (PCR) B.parapertussis DNA PCR Coronavirus OC43 (PCR) Coronavirus HKU1 (PCR) Coronavirus 229E (PCR) SARS-CoV-2 (PCR) Coronavirus NL63 (PCR) Human Metapneumovir PCR Influenza Type A (PCR) Influenza Type B (PCR) M. pneumoniae (PCR) Parainfluenza 1 (PCR) Parainfluenza 2 (PCR) Parainfluenza 3 (PCR) Parainfluenza 4 (PCR) RSV (PCR) Entero/Rhino (PCR) [facility] Medical History Hypoxia Degenerative joint disease of both hips Chronic pain of both knees Gout Bilateral lower extremity edema Chronic pain Iliotibial band syndrome, left leg Tobacco abuse counseling Right hip pain Social History household members: none Smoking Status: Current every day smoker Tobacco: How many years used: 45 alcohol intake: current substance use type: does not use Assessment & Plan Assessment & Plan narrative: 1. Acute hypoxic respiratory failure, present on admission and active. 2. COPD exacerbation, present on admission and active. 3. Elevated BNP, present on admission and active. Monitor clinically. 4. Psoriasis, present on admission and active. 5. Gout, present on admission and active. 6. Morbid obesity, present on admission and active. 7. Leg edema, right greater than left. Present on admission and active. Negative duplex ultrasound. 8. Tobacco dependence, present on admission and active. 9. Opiate dependence, present on admission and active. 10. Acute moderate alcohol withdrawal, new and active. 11. NSTEMI, new and active. PLAN: -continue with corticosteroids, and bronchodilators. -ECHO to assess LVEF, pending. -continue aspirin, and heparin drip (48 hours). -wean O2 as able. -treat withdrawal with CIWA protocol and monitor response. Consider Librium as scheduled medication. -continue chronic medications for gout (allopurinol), and HTN (lisinopril). -hold diuretics with increased hemoglobin and evidence of contraction alkalosis. -repeat troponin this afternoon. Full code The patient appears to have ongoing dyspnea, evidence of NSTEMI, as alcohol withdrawal. He will require an additional night of hospital care will be admitted to inpatient status.
--- NOTE | 2024-01-11 07:26 | DI.US.S_ITS ---
PROCEDURE: US PERIPH VENOUS LOW EXTREM RT INDICATIONS: EDEMA TECHNIQUE: Real-time imaging, as well as color and pulse Doppler interrogation, were performed of the lower extremity deep veins from the inguinal ligament to the popliteal fossa, with documentation of the visualized calf veins. COMPARISON: None. FINDINGS: The common femoral, femoral, popliteal, and the visualized calf veins are normally compressible, and free of intraluminal thrombus. Color and pulse Doppler demonstrate normal phasic intraluminal flow. There is normal augmentation response to distal compression maneuver. IMPRESSION: No findings of lower extremity deep venous thrombosis. Dictated by: Lolly Ann M.D. on 01/11/2024 at 9:48 Approved by: Lolly Ann M.D. on 01/11/2024 at 9:49
[2024-01-11] MEDS: LORazepam 1 MG TABLET PO (07:33)
[2024-01-11] MEDS: ALBUTEROL/IPRATROPIUM 3 ML AMPUL INH (07:37)
[2024-01-11 07:51] LABS: PTT Partial Thromboplastin Tim 83 SECONDS (25.1-36.5)
[2024-01-11] MEDS: ASPIRIN EC 81 MG TABLET PO (08:19)
[2024-01-11] MEDS: lisinopriL 20 MG TABLET PO ×2 (08:19→21:12)
[2024-01-11] MEDS: FOLIC ACID 1 MG TABLET PO (08:20)
[2024-01-11] MEDS: HYDROCODONE/ACET 10/325 TABLET 1 TAB PO ×2 (08:20→16:22)
[2024-01-11] MEDS: MULTIVITAMIN 1 TABLET 1 TAB PO (08:20)
[2024-01-11] MEDS: DOCUSATE 100 MG CAPSULE PO ×2 (08:20→21:12)
[2024-01-11] MEDS: DOXYCYCLINE HYCLATE 100 MG TABLET PO ×2 (08:20→21:12)
[2024-01-11] MEDS: cloNIDine 0.1 MG TABLET PO (08:20)
[2024-01-11] MEDS: THIAMINE 100 MG TABLET PO (08:20)
[2024-01-11] MEDS: NICOTINE 21 MG PATCH TOP (08:21)
[2024-01-11] MEDS: IPRATROPIUM 0.5 MG/2.5 ML NEB INH ×3 (09:39→18:49)
[2024-01-11] MEDS: dexmedeTOMIDine in 0.9 % NaCL 400 MCG/100 ML PLAST..BAG 6.872 MCG IV (11:03)
--- NOTE | 2024-01-11 13:05 | CM.DANOTE ---
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 Original Note: Initial DCP Assessment Note Pt is a 58 yo male, resident of [place], arrives with shortness and breath and persistent drainage from LE wound PCP: Atif Painting Payer: Jessica COLÓN Reviewed chart, pt unable to participate in bedside assessment at this time; became agitated and confused this morning and was started on CIWA protocol. echo pending, O2 for ongoing dyspnea. Medical plan of care unfolding. CM team will plan to follow clinical course closely in case any DC needs or concerns arise. JAGUAR Diaz Discharge Planning/Care Management Discharge Assessment Start: 01/11/24 12:59 Freq: Status: Active Protocol: Document 01/11/24 13:00 MARYSE (Rec: 01/11/24 13:05 MARYSE [id number]) Discharge Planning Assessment Assigned Leacher JAGUAR Jacob DPOA/Assigned Designee Name brother Thorpe Contact Information [phone] ([place]) Advance Directives? No History Provided By Medical Record Prior Living Arrangements House Household Members none Type of transporation used prior to Drives own vehicle admit Independent with ADL's Yes Is patient alert and oriented? Yes Barriers to Discharge No Comment Once medically stable Discharge Plan Home Transportation Arrangement TBD
[2024-01-11 13:27] LABS: PTT Partial Thromboplastin Tim 49 SECONDS (25.1-36.5)
[2024-01-11 13:36] LABS: Troponin I 0.044 ng/mL (0.01-0.034)
--- NOTE | 2024-01-11 15:04 | PC.NURSE ---
Pt extremely agitated this morning, pulling at lines, jumping out of bed, CIWA 14-8, 1 mg ativan administered, pt became more agitated, order received for Precedex gtt, pt tolerating gtt well. VSS and resting comfortably, rouses to voice, able to respond to questions, quickly falls back to sleep. ECHO and ultrasound of lower extremities completed. Attempted to place wallace catheter, was not able to advance in the urethra, removed and placed condom catheter. Call light within reach, no further pt needs at this time.
[2024-01-11] MEDS: HEPARIN DRIP 25,000 UNIT/500 ML IV.SOLN 19.241 UNIT IV (17:06)
[2024-01-11 19:01] LABS: PTT Partial Thromboplastin Tim 74 SECONDS (25.1-36.5)
[2024-01-11] MEDS: dexmedeTOMIDine in 0.9 % NaCL 400 MCG/100 ML PLAST..BAG 13.744 MCG IV (21:17)
[2024-01-12] VITALS (44 sets, daily range): BP systolic 109–151; BP diastolic 60–89; PULSE 53–94; RESP 13–36; TEMP 35.8–37; O2SAT 88–95
[2024-01-12] MEDS: methylPREDNISolone 125 MG/2 ML VIAL 60 MG IV ×3 (00:40→11:37)
[2024-01-12] MEDS: HYDROCODONE/ACET 10/325 TABLET 1 TAB PO ×4 (00:40→20:14)
[2024-01-12 01:29] LABS: PTT Partial Thromboplastin Tim 68 SECONDS (25.1-36.5)
--- NOTE | 2024-01-12 01:44 | PC.NURSE ---
PTT 68, Heparin infusing at 6 units/kg/hour, no change in dose, next PTT at 0745H.
[2024-01-12] MEDS: dexmedeTOMIDine in 0.9 % NaCL 400 MCG/100 ML PLAST..BAG 13.744 MCG IV (05:00)
[2024-01-12] MEDS: FUROSEMIDE 40 MG/4 ML VIAL IV (06:14)
[2024-01-12 06:55] LABS: Add Manual Diff / Slide Review NO; Basophils Absolute Auto 0 /uL (0-100); Basophils Percent Auto 0.4 % (0-2); Eosinophils Absolute Auto 0 /uL (0-450); Hematocrit 50.6 % (41-53); Hemoglobin 16.1 g/dL (13.5-17.5); Lymphocytes Absolute Auto 400 /uL (1100-4500); Lymphocytes Percent Auto 5.3 % (25-40); Mean Corpuscular HGB Conc 31.8 % (30-36); Mean Corpuscular Hemoglobin 29.9 PG (26-34); Mean Corpuscular Volume 94.2 fL (80-100); Monocytes Absolute Auto 300 /uL (0-900); Monocytes Percent Auto 4.5 % (3-14); Neutrophils Absolute Auto 6600 /uL (1500-7000); Neutrophils Percent Auto 89.8 % (50-75); Platelet Count 241 X10^3/uL (150-400); Red Blood Cell Count 5.37 X10^6/uL (4.5-5.9); Red Cell Distribution Width 15.3 % (11.6-14.8); White Blood Cell Count 7.4 X10^3/uL (4.5-11.0)
[2024-01-12 07:12] LABS: PTT Partial Thromboplastin Tim 54 SECONDS (25.1-36.5)
[2024-01-12] MEDS: IPRATROPIUM 0.5 MG/2.5 ML NEB INH ×5 (07:27→22:43)
[2024-01-12] MEDS: DOCUSATE 100 MG CAPSULE PO (08:32)
[2024-01-12] MEDS: ASPIRIN EC 81 MG TABLET PO (08:32)
[2024-01-12] MEDS: lisinopriL 20 MG TABLET PO ×2 (08:32→20:13)
[2024-01-12] MEDS: DOXYCYCLINE HYCLATE 100 MG TABLET PO ×2 (08:32→20:13)
[2024-01-12] MEDS: THIAMINE 100 MG TABLET PO (08:33)
[2024-01-12] MEDS: MULTIVITAMIN 1 TABLET 1 TAB PO (08:34)
[2024-01-12] MEDS: FOLIC ACID 1 MG TABLET PO (08:34)
[2024-01-12] MEDS: NICOTINE 21 MG PATCH TOP (08:34)
[2024-01-12] MEDS: dexmedeTOMIDine in 0.9 % NaCL 400 MCG/100 ML PLAST..BAG 6.872 MCG IV (11:38)
[2024-01-12] MEDS: SODIUM CHLORIDE 0.9% FLUSH 10 ML IV ×2 (11:39→20:14)
[2024-01-12] MEDS: SODIUM CHLORIDE 0.9% 250 ML 21 ML IV (11:39)
[2024-01-12 12:56] LABS: BUN Creatinine Ratio 36.2 (6-22); Blood Urea Nitrogen 21 mg/dL (9-20); Calcium 8.2 mg/dL (8.4-10.2); Chloride 87 mmol/L (98-107); Estimated Glomerular Filt Rate > 60 mL/min (>60); Glucose 143 mg/dL (80-110); HEMOLYSIS 27 (0-50); Potassium 4.1 mmol/L (3.4-5.1); Sodium 138 mmol/L (137-145)
--- NOTE | 2024-01-12 15:41 | PM.PN.1 ---
Subjective Subjective Interval history: Improved after precedex infusion, remains calm and cooperative, oriented this morning. Was started on heparin infusion for possible NSTEMI, however troponin downtrended, echocardiogram unremarkable, stopped as likely not NSTEMI. Remains on 4-5 L of supplemental O2 today. He feels much better today than yesterday overall. Exam Vital Signs (past 8 hours): - 01/12/24 08:00 01/12/24 08:00 01/12/24 08:15 Temperature 96.5 F L Pulse Rate 57 L 54 L Respiratory Rate 21 20 Blood Pressure 141/72 H 137/79 Pulse Oximetry 92 92 Oxygen Delivery Method Oxygen Flow Rate 4 01/12/24 08:30 01/12/24 08:32 01/12/24 09:00 Temperature Pulse Rate 60 62 60 Respiratory Rate 21 23 Blood Pressure 141/72 H Pulse Oximetry 92 93 Oxygen Delivery Method Oxygen Flow Rate 01/12/24 09:01 01/12/24 09:01 01/12/24 09:30 Temperature Pulse Rate 55 L 53 L Respiratory Rate 16 16 Blood Pressure 118/70 Pulse Oximetry 92 92 Oxygen Delivery Method Oxygen Flow Rate 01/12/24 10:00 01/12/24 10:00 01/12/24 10:00 Temperature Pulse Rate 56 L Respiratory Rate 23 Blood Pressure 121/75 Pulse Oximetry 91 Oxygen Delivery Method Nasal Cannula Oxygen Flow Rate 01/12/24 10:30 01/12/24 10:42 01/12/24 11:00 Temperature Pulse Rate 61 55 L 53 L Respiratory Rate 35 H 17 19 Blood Pressure Pulse Oximetry 91 93 91 Oxygen Delivery Method High Flow Nasal Cannula Oxygen Flow Rate 5 01/12/24 11:00 01/12/24 11:30 01/12/24 12:00 Temperature Pulse Rate 53 L 57 L Respiratory Rate 19 34 H Blood Pressure 121/79 Pulse Oximetry 94 90 L Oxygen Delivery Method Oxygen Flow Rate 01/12/24 12:00 01/12/24 12:30 01/12/24 13:00 Temperature 96.9 F L Pulse Rate 60 65 Respiratory Rate 36 H 22 Blood Pressure 117/72 Pulse Oximetry 91 91 Oxygen Delivery Method Oxygen Flow Rate 01/12/24 13:01 01/12/24 13:01 01/12/24 13:30 Temperature Pulse Rate 63 62 Respiratory Rate 34 H 23 Blood Pressure 113/81 Pulse Oximetry 91 91 Oxygen Delivery Method Oxygen Flow Rate 01/12/24 14:00 01/12/24 14:00 01/12/24 14:01 Temperature Pulse Rate 65 66 Respiratory Rate 29 H 25 H Blood Pressure Pulse Oximetry 91 91 Oxygen Delivery Method Nasal Cannula Oxygen Flow Rate 01/12/24 14:01 01/12/24 15:24 Temperature Pulse Rate 70 Respiratory Rate 20 Blood Pressure 129/89 Pulse Oximetry 92 Oxygen Delivery Method High Flow Nasal Cannula Oxygen Flow Rate 5 Oxygen Delivery Method High Flow Nasal Cannula Oxygen Flow Rate 5 Narrative Exam Narrative: NAD, alert, oriented to name, date, hospital today Lungs with small rhonchi b/l lung bases, normal rate and effort. Heart is regular, no murmur gallop or rub. Abdomen is soft, non distended. Extremities are with trace edema. No overt erythema. Objective Labs 01/12/24 06:45 01/12/24 06:45 Labs: Laboratory Results - last 24 hr 01/11/24 01/12/24 01/12/24 18:42 00:55 06:45 WBC 7.4 RBC 5.37 Hgb 16.1 Hct 50.6 MCV 94.2 MCH 29.9 MCHC 31.8 RDW 15.3 H Plt Count 241 Neut % (Auto) 89.8 H Lymph % (Auto) 5.3 L [place] % (Auto) 4.5 Eos % (Auto) 0.0 L Baso % (Auto) 0.4 Neut # (Auto) 6600 Lymph # (Auto) 400 L [place] # (Auto) 300 Eos # (Auto) 0 Baso # (Auto) 0 APTT 74 H* D 68 H 54 H D Sodium 138 Potassium 4.1 D Chloride 87 L BUN 21 H Creatinine 0.58 L Estimated GFR > 60 BUN/Creatinine Ratio 36.2 H Glucose 143 H Calcium 8.2 L PFSH Medical History Hypoxia Degenerative joint disease of both hips Chronic pain of both knees Gout Bilateral lower extremity edema Chronic pain Iliotibial band syndrome, left leg Tobacco abuse counseling Right hip pain Social History household members: none Smoking Status: Current every day smoker Tobacco: How many years used: 45 alcohol intake: current substance use type: does not use Assessment & Plan Assessment & Plan narrative: 1. Acute hypoxic respiratory failure, present on admission and active. 2. COPD exacerbation, present on admission and active. 3. Possible diastolic heart failure, present on admission and active. Monitor clinically. 4. Psoriasis, present on admission and active. 5. Gout, present on admission and active. 6. Morbid obesity, present on admission and active. 7. Leg edema, right greater than left. Present on admission and active. Negative duplex ultrasound. 8. Tobacco dependence, present on admission and active. 9. Opiate dependence, present on admission and active. 10. Acute moderate alcohol withdrawal, new and active. 11. Myocardial injury PLAN: -continue with corticosteroids, and bronchodilators. IV steroids changed to PO prednisone starting tomorrow. -continue aspirin, and heparin continued for 36 hours but stopped today due to improving lab values and unremarkable echocardiogram. Likely elevated in setting of demand from respiratory failure and COPD exacerbation. -wean O2 as able, goal O2 >90% -treat withdrawal with CIWA protocol and monitor response. Start librium 25 mg TID, wean off precedex. -continue chronic medications for gout (allopurinol), and HTN (lisinopril). -held diuretics today, appears near euvolemia on exam and Full code I spent 35 minutes providing critical care management this patient. This excludes time spent in performing separately billed procedures.
[2024-01-12 18:38] LABS: Carbon Dioxide 45 mmol/L (22-32)
[2024-01-13] VITALS (8 sets, daily range): BP systolic 130–146; BP diastolic 74–80; PULSE 86–103; RESP 17–24; TEMP 36.7–37.1; O2SAT 88–96
[2024-01-13] MEDS: HYDROCODONE/ACET 10/325 TABLET 1 TAB PO ×5 (00:20→16:30)
[2024-01-13 04:50] LABS: Add Manual Diff / Slide Review NO; Basophils Absolute Auto 100 /uL (0-100); Basophils Percent Auto 0.5 % (0-2); Eosinophils Absolute Auto 0 /uL (0-450); Eosinophils Percent Auto 0.1 % (2-4); Hematocrit 50.3 % (41-53); Hemoglobin 16.1 g/dL (13.5-17.5); Lymphocytes Absolute Auto 1400 /uL (1100-4500); Lymphocytes Percent Auto 10.9 % (25-40); Mean Corpuscular HGB Conc 31.9 % (30-36); Mean Corpuscular Hemoglobin 29.6 PG (26-34); Mean Corpuscular Volume 92.9 fL (80-100); Monocytes Absolute Auto 1400 /uL (0-900); Neutrophils Absolute Auto 9600 /uL (1500-7000); Neutrophils Percent Auto 77.5 % (50-75); Platelet Count 241 X10^3/uL (150-400); Red Blood Cell Count 5.42 X10^6/uL (4.5-5.9); Red Cell Distribution Width 15.6 % (11.6-14.8); White Blood Cell Count 12.4 X10^3/uL (4.5-11.0)
[2024-01-13 05:21] LABS: BUN Creatinine Ratio 61.2 (6-22); Blood Urea Nitrogen 41 mg/dL (9-20); Chloride 88 mmol/L (98-107); Estimated Glomerular Filt Rate > 60 mL/min (>60); Glucose 87 mg/dL (80-110); Magnesium 2.2 mg/dL (1.6-2.3); Potassium 4.8 mmol/L (3.4-5.1); Sodium 135 mmol/L (137-145)
[2024-01-13 05:40] LABS: HEMOLYSIS 155 (0-50)
[2024-01-13 05:41] LABS: Carbon Dioxide 40 mmol/L (22-32)
[2024-01-13] MEDS: IPRATROPIUM 0.5 MG/2.5 ML NEB INH ×3 (06:14→18:58)
[2024-01-13] MEDS: lisinopriL 20 MG TABLET PO (08:29)
[2024-01-13] MEDS: NICOTINE 21 MG PATCH TOP (08:29)
[2024-01-13] MEDS: DOCUSATE 100 MG CAPSULE PO (08:29)
[2024-01-13] MEDS: predniSONE 20 MG TABLET 40 MG PO (08:30)
[2024-01-13] MEDS: THIAMINE 100 MG TABLET PO (08:30)
[2024-01-13] MEDS: DOXYCYCLINE HYCLATE 100 MG TABLET PO (08:30)
[2024-01-13] MEDS: MULTIVITAMIN 1 TABLET 1 TAB PO (08:30)
[2024-01-13] MEDS: FOLIC ACID 1 MG TABLET PO (08:30)
[2024-01-13] MEDS: ASPIRIN EC 81 MG TABLET PO (08:31)
[2024-01-13] MEDS: SODIUM CHLORIDE 0.9% FLUSH 10 ML IV (08:31)
--- NOTE | 2024-01-13 13:47 | CM.DPC ---
DCP Cont: Patient is currently on 2 liters of oxygen, has been weaned off Precedex, receiving Lorazepam. Has still been hypoxic. Hospitalist anticipates a few more days. May need to bring in resources for patient regarding his alcohol use. P: DCP to continue to follow for needs, may need resources for alcohol use prior to discharge, and a substance abuse assessment. Svetlana Navarrete RN/Flour Worker
--- NOTE | 2024-01-13 14:33 | P.PN_ITS ---
Subjective Subjective Interval history: Remains on 2L of supplemental O2 today and improving. He feels much better today than yesterday overall. Exam Vital Signs (past 8 hours): - 01/13/24 08:00 01/13/24 08:00 01/13/24 08:29 Temperature 98.1 F Pulse Rate 92 H 100 H Respiratory Rate 19 Blood Pressure 142/74 H 142/74 H Pulse Oximetry 92 Oxygen Delivery Method High Flow Nasal Cannula Oxygen Flow Rate 4 01/13/24 12:00 01/13/24 12:00 01/13/24 14:01 Temperature 98.4 F Pulse Rate 100 H 103 H Respiratory Rate 24 22 Blood Pressure 130/75 Pulse Oximetry 94 89 L Oxygen Delivery Method High Flow Nasal Cannula Room Air Oxygen Flow Rate 2 Oxygen Delivery Method Room Air Oxygen Flow Rate 2 Narrative Exam Narrative: NAD, alert, oriented to name, date, hospital today Lungs with small rhonchi b/l lung bases, normal rate and effort. Heart is regular, no murmur gallop or rub. Abdomen is soft, non distended. Extremities are with trace edema. No overt erythema. Objective Labs 01/13/24 04:35 01/13/24 04:35 Labs: Laboratory Results - last 24 hr 01/12/24 01/13/24 06:45 04:35 WBC 12.4 H D RBC 5.42 Hgb 16.1 Hct 50.3 MCV 92.9 MCH 29.6 MCHC 31.9 RDW 15.6 H Plt Count 241 Neut % (Auto) 77.5 H Lymph % (Auto) 10.9 L [place] % (Auto) 11.0 Eos % (Auto) 0.1 L Baso % (Auto) 0.5 Neut # (Auto) 9600 H Lymph # (Auto) 1400 [place] # (Auto) 1400 H Eos # (Auto) 0 Baso # (Auto) 100 Sodium 138 135 L Potassium 4.1 D 4.8 Chloride 87 L 88 L Carbon Dioxide 45 H* 40 H* BUN 21 H 41 H Creatinine 0.58 L 0.67 Estimated GFR > 60 > 60 BUN/Creatinine Ratio 36.2 H 61.2 H Glucose 143 H 87 Calcium 8.2 L 8.0 L Magnesium 2.2 PFSH Medical History Hypoxia Degenerative joint disease of both hips Chronic pain of both knees Gout Bilateral lower extremity edema Chronic pain Iliotibial band syndrome, left leg Tobacco abuse counseling Right hip pain Social History household members: none Smoking Status: Current every day smoker Tobacco: How many years used: 45 alcohol intake: current substance use type: does not use Assessment & Plan Assessment & Plan narrative: 1. Acute on chronic hypoxic respiratory failure, present on admission and active. 2. COPD exacerbation, present on admission and active. 3. Possible diastolic heart failure, present on admission and active. Monitor clinically. 4. Psoriasis, present on admission and active. 5. Gout, present on admission and active. 6. Morbid obesity, present on admission and active. 7. Leg edema, right greater than left. Present on admission and active. Negative duplex ultrasound. 8. Tobacco dependence, present on admission and active. 9. Opiate dependence, present on admission and active. 10. Acute moderate alcohol withdrawal, new and active. 11. Myocardial injury PLAN: -continue with corticosteroids, and bronchodilators. IV steroids changed to PO prednisone. -continue aspirin, and heparin continued for 36 hours but stopped today due to improving lab values and unremarkable echocardiogram. Likely elevated in setting of demand from respiratory failure and COPD exacerbation. -wean O2 as able, goal O2 >89%. He states he is on 2L of oxygen at night only at home. -treat withdrawal with CIWA protocol and monitor response. Precedex off, CIWA low and librium was not started yesterday, continue as needed lorazepam. -continue chronic medications for gout (allopurinol), and HTN (lisinopril). -held diuretics, appears near euvolemia on exam Full code Dispo: discharge home with resolution of hypoxia, hopefully 1-2 more days.
--- NOTE | 2024-01-13 16:14 | PM.DS.1 ---
History of Present Illness History of Present Illness Date Patient Seen: 01/13/24 Time Patient Seen: 16:14 Chief complaint: big wound R leg, draining, sob Narrative: Per admitting provider, The patient is a 58-year-old male with a history of tobacco use and chronic use of inhalers. The patient has home oxygen which he does not use. He came to the emergency department today with acute dyspnea. There was no complaint of chest pain, and is cough is chronic and at his baseline. In the emergency department he was hypoxemic. He does have a distant history of pulmonary embolism, CT pulmonary angiogram was negative for PE, pleural effusion, or overt pulmonary edema. The patient was diuresed in the emergency department. He has no known history of heart failure. He denies any leg swelling, or orthopnea. His initial troponin was negative and his BNP was mildly elevated. He notes that he has been ill for several days with a cough. He denies rhinorrhea, or fevers. No orthopnea. He has had right leg swelling for several great days with weeping. He denies any trauma to the leg. He also continues to smoke about 80% of a pack of cigarettes a day and has been doing so for 40 years. He drinks about 3 beers a day denies any alcohol withdrawal symptoms if he does not drink in the earlier part of the day. He also notes the cough has been primarily nonproductive. He has no history of heart failure. He denies any chest pain, or palpitations. He also denies any nausea. He is pronounced psoriasis on his elbows greater than his knees. He has not been using a cream for this or any other remedy recently. He lives alone in [facility]. He denies any other drug use. Discharge Providers Provider Date of admission: 01/10/24 16:12 Discharge Date: 01/13/24 Primary care physician: Atif Painting DO Consults: 01/10/24 16:33 Consult to Cardio/Pulmonary Rehabilitation Routine Comment: Physician Instructions: Evaluate and treat Discharge provider: Martin Lynn DO Summary Hospital Course Discharge Diagnosis: 1. Acute on chronic hypoxic respiratory failure, present on admission and active. 2. COPD exacerbation, present on admission and active. 3. Possible acute diastolic heart failure, present on admission and active. Monitor clinically. 4. Psoriasis, present on admission and active. 5. Gout, present on admission and active. 6. Morbid obesity, present on admission and active. 7. Leg edema, right greater than left. Present on admission and active. Negative duplex ultrasound. 8. Tobacco dependence, present on admission and active. 9. Opiate dependence, present on admission and active. 10. Acute moderate alcohol withdrawal, new and active. 11. Myocardial injury Hospital Course: This is a 58 year old male who presented with shortness of breath to the emergency room, he reports being sent for weeping right leg wound. He was noted to have respiratory failure, initially requiring 2-4L of oxygen. He did report later that he uses oxygen intermittently at night and has some home O2. He was treated with steroids for presumed COPD exacerbation, diuresed for possible heart failure. After admission, he also developed alcohol withdrawal requiring precedex and did have slight worsening of oxygen requirements. Troponin started to rise and patient was started on heparin infusion for possible NSTEMI, however this was stopped after about 36 hours as troponin quickly improved and echocardiogram was unremarkable with normal EF and no wall motion abnormalities. His legs continue to improve with doxycycline, and will continue to treat as an outpatient. He was initially diuresed, however this was stopped as patient did not seemingly appeared volume overloaded after a few doses of furosemide. He was able to be weaned to room air while awake, maintaing O2 saturations above 89% on room air consistently, and was discharged home at that time. Recommend primary care follow up next week ideally, along with cardiology follow up as an outpatient given his myocardial injury here in the hospital. Time Spent with Patient Time spent: Greater than 30 minutes Exam Vital Signs (past 8 hours): - 01/13/24 08:29 01/13/24 12:00 01/13/24 12:00 Temperature 98.4 F Pulse Rate 100 H 100 H Respiratory Rate 24 Blood Pressure 142/74 H 130/75 Pulse Oximetry 94 Oxygen Delivery Method High Flow Nasal Cannula Oxygen Flow Rate 2 01/13/24 14:01 Temperature Pulse Rate 103 H Respiratory Rate 22 Blood Pressure Pulse Oximetry 89 L Oxygen Delivery Method Room Air Oxygen Flow Rate Oxygen Delivery Method Room Air Oxygen Flow Rate 2 Narrative Exam Narrative: NAD, alert Lungs with small rhonchi b/l lung bases, normal rate and effort. Heart is regular, no murmur gallop or rub. Abdomen is soft, non distended. Extremities are with trace edema. No overt erythema. Objective Labs 01/13/24 04:35 01/13/24 04:35 Labs: Laboratory Results - last 24 hr 01/12/24 01/13/24 06:45 04:35 WBC 12.4 H D RBC 5.42 Hgb 16.1 Hct 50.3 MCV 92.9 MCH 29.6 MCHC 31.9 RDW 15.6 H Plt Count 241 Neut % (Auto) 77.5 H Lymph % (Auto) 10.9 L [place] % (Auto) 11.0 Eos % (Auto) 0.1 L Baso % (Auto) 0.5 Neut # (Auto) 9600 H Lymph # (Auto) 1400 [place] # (Auto) 1400 H Eos # (Auto) 0 Baso # (Auto) 100 Sodium 138 135 L Potassium 4.1 D 4.8 Chloride 87 L 88 L Carbon Dioxide 45 H* 40 H* BUN 21 H 41 H Creatinine 0.58 L 0.67 Estimated GFR > 60 > 60 BUN/Creatinine Ratio 36.2 H 61.2 H Glucose 143 H 87 Calcium 8.2 L 8.0 L Magnesium 2.2 PFSH Medical History Hypoxia Degenerative joint disease of both hips Chronic pain of both knees Gout Bilateral lower extremity edema Chronic pain Iliotibial band syndrome, left leg Tobacco abuse counseling Right hip pain Social History household members: none Smoking Status: Current every day smoker Tobacco: How many years used: 45 alcohol intake: current substance use type: does not use Discharge Plan Discharge Plan Patient Disposition: Home Provider Discharge Comment: You were admitted to the hospital with shortness of breath. Treated for COPD exacerbation. Continue doxycycline for your leg wound, continue outpatient care with as needed dressing changes. Discharge orders & Medications Prescriptions: New doxycycline hyclate 100 mg Tablet 100 mg PO BID 7 Days Qty: 14 0RF prednisone 20 mg Tablet 40 mg PO DAILY 3 Days Qty: 6 0RF Continued Spiriva Respimat 2.5 mcg/actuation mist 2 puff INHALATION DAILY Qty: 4 5RF betamethasone dipropionate 0.05 % ointment See Rx Instructions .ROUTE .COMPLEX Qty: 45 5RF Dose Instruction: Apply small amount to affected area(s) daily as needed Rx Instructions: Apply small amount to affected area(s) daily as needed hydrocodone-acetaminophen 7.5-325 mg tablet See Rx Instructions .ROUTE .COMPLEX Qty: 150 0RF Rx Instructions: Take 1 tablet by mouth every 4 hours as needed for pain. Maximum 5 tablets in 24 hour albuterol sulfate [Proventil HFA] 90 mcg/actuation HFA aerosol inhaler 2 puff INHALATION Q4H PRN (Reason: shortness of breath or wheezing) Qty: 8.5 11RF Rx Instructions: Inhale 2 puffs every 4 hours for shortness of breath or wheezing. varenicline 1 mg tablet 1 mg PO BID Qty: 56 3RF aspirin 81 mg tablet,delayed release (DR/EC) 81 mg PO QAM docusate sodium 100 mg capsule 100 mg PO BID PRN (Reason: constipation) lisinopril 20 mg tablet 20 mg PO BID Follow up/Referrals: Atif Painting DO [Primary Care Provider] - Diet/Activity/Treatments Diet: Diet as Tolerated and Low-sodium Activity: As tolerated, no restrictions Visit Report/Discharge Packet Stand Alone Forms: Patient Portal/API, Stroke Signs & Symptoms Discharge Data Primary Care Provider: Atif Painting
--- NOTE | 2024-01-13 19:45 | PC.NURSE ---
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 Patients VSS, AOx4, tolerating RA.
== END 2024-01-13 19:35 | disposition home or self-care (01) | DRG 190 ==
LOC: ED 15:24 → AC 16:13 → ICU 16:15
PROVIDERS: Internal Medicine; Admitting Provider Hospitalist; Emergency Provider Emergency Medicine; PCP Family Medicine; Referring Provider Emergency Medicine; Visit Provider Hospitalist
DX: J44.1 Chronic obstructive pulmonary disease with (acute) exacerbation (principal); I50.31 Acute diastolic (congestive) heart failure; J96.21 Acute and chronic respiratory failure with hypoxia; F11.20 Opioid dependence, uncomplicated; Z68.41 Body mass index [BMI] 40.0-44.9, adult; F10.239 Alcohol dependence with withdrawal, unspecified; I5A Non-ischemic myocardial injury (non-traumatic); E66.01 Morbid (severe) obesity due to excess calories; M10.9 Gout, unspecified; L40.9 Psoriasis, unspecified; F17.200 Nicotine dependence, unspecified, uncomplicated; Z99.81 Dependence on supplemental oxygen
CPT/HCPCS: 36415; 36592; 71045; 71275; 80048; 80053; 82550; 83605; 83690; 83735; 83880; 84145; 84484; 85025; 85610; 85730; 87040; 87633; 87797; 93005; 93010; 93306; 93971; 94640; 94762; 96365; 96375; 99285; 99406; J1644; J1940; J2919; J7613; Q9967

== ENCOUNTER 2024-02-01 12:05 | Inpatient (IN) | payer OTHER, SELFPAY ==
[2024-01-10 16:43] VITALS: BMI 43.4
[2024-02-01] VITALS (15 sets, daily range): BP systolic 137–191; BP diastolic 71–109; PULSE 79–93; RESP 14–39; TEMP 36.4–37.1; O2SAT 87–99; BMI 36.2; BMI 40.2
[2024-02-01] MEDS: ALBUTEROL/IPRATROPIUM 3 ML AMPUL INH ×2 (12:53→20:13)
--- NOTE | 2024-02-01 12:53 | DI.RAD.S_ITS ---
P left ROCEDURE: XR CHEST 1V INDICATIONS: Shortness of breath TECHNIQUE: One view of the chest was acquired. COMPARISON: [facility], CT, CT ANGIO CHEST PE PROTOCOL, 01/10/2024, 14:20. [facility], CR, XR CHEST 1V, 01/10/2024, 12:07. [facility], CR, XR CHEST 2V, 02/20/2023, 12:39. FINDINGS: Surgical changes and devices: None. Lungs and pleura: Retrocardiac opacity. No pleural effusions or pneumothorax. Mild interstitial opacities. Mediastinum: Mediastinal contours appear normal. Heart size is enlarged. Bones and chest wall: No suspicious bony lesions. Overlying soft tissues appear unremarkable. IMPRESSION: Mild interstitial passages, suggestive of mild pulmonary edema. Retrocardiac opacity, could represent atelectasis or infection. Recommend follow-up in 1-2 months with chest x-ray to ensure resolution. Dictated by: Ian Méndez M.D. on 02/01/2024 at 13:38 Approved by: Ian Méndez M.D. on 02/01/2024 at 13:40
--- NOTE | 2024-02-01 12:58 | ED.WOUNDLAC ---
HPI - Wound/Laceration General Chief Complaint: Wound/Laceration Stated Complaint: weeping mass on Rt leg Time Seen by Provider: 02/01/24 12:58 Source: patient Mode of arrival: Wheelchair History of Present Illness HPI narrative: 58-year-old male with history of chronic bilateral lower extremity edema, increasing redness to both legs, some weeping to the posterior aspect of the right leg. Also increasing shortness of breath over the last 4 days, history of COPD, unclear if any history of congestive heart failure known to the patient. No diuretics noted on screening medication triage list. He has frequent cough, recently increased, dry nonproductive. He denies pain to his chest. Denies feeling feverish. Denies sore throat, headaches, sinus congestion. Denies abdominal pain, nausea, diarrhea. Denies painful urination, change in urine color. Related Data Home Medications Medication Instructions Recorded Confirmed lisinopril 20 mg tablet 20 mg PO BID 01/10/24 02/01/24 Previous Rx's Medication Instructions Recorded albuterol sulfate 90 mcg/actuation 2 puff inhalation Q4H PRN 08/12/20 aerosol inhaler (Proventil HFA) shortness of breath or wheezing #8.5 ea tiotropium bromide 2.5 2 puff inhalation DAILY #4 grams 02/09/22 mcg/actuation mist for inhalation (Spiriva Respimat) betamethasone dipropionate 0.05 % See Rx Instructions .Route 11/25/22 topical ointment .COMPLEX #45 grams varenicline 1 mg tablet 1 mg PO BID #56 tabs 03/14/23 hydrocodone 7.5 mg-acetaminophen See Rx Instructions .Route 01/12/24 325 mg tablet .COMPLEX #150 tabs Allergies Allergy/AdvReac Type Severity Reaction Status Date / Time No Known Drug Allergies Allergy Unknown Verified 02/01/24 12:35 Patient History Medical History Hypoxia Degenerative joint disease of both hips Chronic pain of both knees Gout Bilateral lower extremity edema Chronic pain Iliotibial band syndrome, left leg Tobacco abuse counseling Right hip pain Social History household members: none Smoking Status: Current every day smoker Tobacco: How many years used: 45 alcohol intake: current substance use type: does not use Smoking Status: Current every day smoker tobacco type: cigarettes alcohol intake frequency: 3 or more drinks per day Substance Use Type: does not use Exam Narrative Exam Narrative: GENERAL: Well-developed patient, in mild distress. HEAD: Atraumatic. Normocephalic. EYES: Pupils equal round and reactive. Extraocular motions intact. No scleral icterus. No injection or drainage. ENT: Nose without bleeding, purulent drainage. Throat without erythema, tonsillar hypertrophy or exudate. Airway patent. NECK: Trachea midline. Non tender CARDIOVASCULAR: Regular rate and rhythm without murmurs, gallops, or rubs. RESPIRATORY: 88% room air sat, improved with 2 L oxygen, speaking in just short of full sentences, some retractions, wheeze heard by RT but not by me after SVN given, crackles bibasilar GASTROINTESTINAL: Abdomen soft, non-tender, nondistended. EXTREMITIES: Bilateral lower extremity edema with erythema up to thighs. Dried exudate anterior and posterior, no fluctuance or discharge BACK: Nontender without deformity or crepitance. No flank tenderness. NEURO: AOx3. No gross motor deficit. SKIN: No rash or erythema of visible areas Initial Vital Signs Initial Vital Signs: Vital Signs Temperature 98.8 F 02/01/24 12:28 Pulse Rate 91 H 02/01/24 12:28 Respiratory Rate 18 02/01/24 12:28 Blood Pressure 161/79 H 02/01/24 12:28 Pulse Oximetry 92 02/01/24 12:28 Oxygen Delivery Method Room Air 02/01/24 12:28 Course Orders Ordered: ED Orders 02/01/24 14:09 Covid-19 + FLU A/B + RSV - PCR Stat 02/01/24 14:48 Blood Culture Stat Acetaminophen (Acetaminophen 325 Mg Tablet) 650 mg PO Q6H PRN PRN Reason: Fever/Mild Pain (1-3) Hydrocodone Bitart/Acetaminophen (Hydrocodone/Acet 5/325 Tablet) 1.5 tab PO Q4HR PRN PRN Reason: Pain, Moderate (4-6) Last Admin: 02/01/24 20:46 Dose: 1.5 tab Documented By: Admin: 02/01/24 16:43 Dose: 1.5 tab Documented By: CLL Albuterol/Ipratropium (Albuterol/Ipratropium 3 Ml Ampul) 3 ml INH [id number] [facility] Last Admin: 02/01/24 20:13 Dose: 3 ml Documented By: MR Azithromycin (Azithromycin 250 Mg Tablet) 500 mg PO DAILY [facility] Stop: 02/03/24 09:01 Last Admin: 02/01/24 16:39 Dose: 500 mg Documented By: VINCENT Benzonatate (Benzonatate 100 Mg Capsule) 100 mg PO TID PRN PRN Reason: Cough Enoxaparin Sodium (Enoxaparin 40 Mg/0.4 Ml Syringe) 40 mg SUBCUT BID [facility] Furosemide (Furosemide 40 Mg/4 Ml Vial) 40 mg IV DAILY [facility] Last Admin: 02/01/24 16:43 Dose: 40 mg Documented By: VNICENT Guaifenesin (Guaifenesin Er 600 Mg Tab) 600 mg PO BID [facility] Last Admin: 02/01/24 20:46 Dose: 600 mg Documented By: RIMA Ceftriaxone Sodium 1,000 mg/ (Sodium Chloride) 100 mls @ 200 mls/hr IV Q24H [facility] Stop: 02/05/24 09:01 Lisinopril (Lisinopril 20 Mg Tablet) 20 mg PO BID [facility] Last Admin: 02/01/24 20:46 Dose: 20 mg Documented By: RIMA Naloxone HCl (Naloxone 0.4 Mg/Ml Vial) 0.2 mg IV Q2MIN PRN PRN Reason: Opiate Reversal Nicotine (Nicotine 21 Mg Patch) 21 mg TOP DAILY [facility] Last Admin: 02/01/24 20:47 Dose: 21 mg Documented By: RIMA Nf - Varenicline 1 (Mg Tablet) 1 mg PO BID [facility] Last Admin: 02/01/24 20:47 Dose: Not Given Documented By: RIMA Nystatin (Nystatin Cream 30 Gm) 1 applic TOP BID [facility] Last Admin: 02/01/24 22:10 Dose: Not Given Documented By: RIMA Ondansetron HCl (Ondansetron 4 Mg/2 Ml Inj) 4 mg IV Q4HR PRN PRN Reason: Nausea And Vomiting Prednisone (Prednisone 20 Mg Tablet) 40 mg PO DAILY [facility] Stop: 02/05/24 09:01 Last Admin: 02/01/24 16:42 Dose: 40 mg Documented By: VINCENT Discontinued Medications Albuterol/Ipratropium (Albuterol/Ipratropium 3 Ml Ampul) 3 ml INH NOW ONE Stop: 02/01/24 12:51 Last Admin: 02/01/24 12:53 Dose: 3 ml Documented By: TASH Furosemide (Furosemide 40 Mg/4 Ml Vial) 40 mg IV NOW ONE Stop: 02/01/24 13:39 Last Admin: 02/01/24 13:48 Dose: 40 mg Documented By: RUSLAN Furosemide (Furosemide 40 Mg/4 Ml Vial) 40 mg IV 1600,0800 [facility] Last Admin: 02/01/24 16:57 Dose: Not Given Documented By: VINCENT Vancomycin HCl/Dextrose (Vancomycin) 2,000 mg in 400 mls @ 200 mls/hr IV NOW ONE Stop: 02/01/24 15:54 Last Admin: 02/01/24 15:36 Dose: Not Given Documented By: VINCENT Ceftriaxone Sodium 2,000 mg/ (Sodium Chloride) 100 mls @ 200 mls/hr IV NOW ONE Stop: 02/01/24 13:56 Last Admin: 02/01/24 15:24 Dose: Not Given Documented By: VINCENT Vancomycin HCl/Dextrose (Vancomycin) 2,000 mg in 400 mls @ 200 mls/hr IV NOW ONE Stop: 02/01/24 18:59 Last Admin: 02/01/24 17:39 Dose: 200 mls/hr Documented By: VINCENT Ceftriaxone Sodium 2,000 mg/ (Sodium Chloride) 100 mls @ 200 mls/hr IV NOW ONE Stop: 02/01/24 16:29 Last Admin: 02/01/24 16:43 Dose: 200 mls/hr Documented By: VINCENT Ipratropium [place] (Ipratropium 0.5 Mg/2.5 Ml Neb) 0.5 mg INH NOW ONE Stop: 02/01/24 13:56 Last Admin: 02/01/24 20:12 Dose: Not Given Documented By: MR Methylprednisolone (Methylprednisolone 125 Mg/2 Ml Vial) 125 mg IV NOW ONE Stop: 02/01/24 12:59 Last Admin: 02/01/24 13:17 Dose: 125 mg Documented By: RUSLAN Vital Signs Vital signs: Vital Signs - 8 hr 02/01/24 12:28 02/01/24 12:31 02/01/24 12:33 Temperature 98.8 F Pulse Rate 91 H 91 H 91 H Respiratory Rate 18 30 H 32 H Blood Pressure 161/79 H Pulse Oximetry 92 89 L 90 L Oxygen Delivery Method Room Air Room Air Oxygen Flow Rate Fraction of Inspired Oxygen 02/01/24 12:33 02/01/24 12:53 02/01/24 13:00 Temperature Pulse Rate 87 82 Respiratory Rate 22 24 Blood Pressure 156/85 H Pulse Oximetry 90 L 99 Oxygen Delivery Method Room Air Oxygen Flow Rate 0 Fraction of Inspired Oxygen 21 02/01/24 13:00 02/01/24 13:30 02/01/24 13:31 Temperature Pulse Rate 79 83 Respiratory Rate 29 H 31 H Blood Pressure 162/84 H Pulse Oximetry 95 92 Oxygen Delivery Method Oxygen Flow Rate Fraction of Inspired Oxygen 02/01/24 13:31 02/01/24 14:00 02/01/24 14:01 Temperature Pulse Rate 88 91 H Respiratory Rate 29 H 31 H Blood Pressure 185/97 H Pulse Oximetry 94 87 L Oxygen Delivery Method Room Air Oxygen Flow Rate Fraction of Inspired Oxygen 02/01/24 14:01 02/01/24 14:10 02/01/24 14:10 Temperature Pulse Rate 84 Respiratory Rate 27 H Blood Pressure 191/109 H 165/80 H Pulse Oximetry 94 Oxygen Delivery Method Nasal Cannula Oxygen Flow Rate 1.5 Fraction of Inspired Oxygen MDM - Wound/Laceration Lab Data Attestation: I reviewed the patient's lab results. 02/01/24 13:00 02/01/24 13:00 Labs: Lab Results 02/01/24 02/01/24 Range/Units 13:00 14:09 WBC 5.3 (4.5-11.0) X10^3/uL RBC 4.84 (4.5-5.9) X10^6/uL Hgb 14.6 (13.5-17.5) g/dL Hct 45.6 (41-53) % MCV 94.2 (80-100) fL MCH 30.0 (26-34) PG MCHC 31.9 (30-36) % RDW 16.8 H (11.6-14.8) % Plt Count 200 (150-400) X10^3/uL Neut % (Auto) 73.9 (50-75) % Lymph % (Auto) 12.9 L (25-40) % [place] % (Auto) 11.8 (3-14) % Eos % (Auto) 1.1 L (2-4) % Baso % (Auto) 0.3 (0-2) % Neut # (Auto) 3900 (6027-8998) /uL Lymph # (Auto) 700 L (7596-3024) /uL [place] # (Auto) 600 (0-900) /uL Eos # (Auto) 100 (0-450) /uL Baso # (Auto) 0 (0-100) /uL PT 14.0 H (9.4-12.5) SECONDS INR 1.2 (0.9-1.3) Sodium 141 (137-145) mmol/L Potassium 4.0 (3.4-5.1) mmol/L Chloride 104 (98-107) mmol/L Carbon Dioxide 38 H (22-32) mmol/L BUN 4 L (9-20) mg/dL Creatinine 0.64 L (0.66-1.25) mg/dL Estimated GFR > 60 (>60) mL/min BUN/Creatinine Ratio 6.3 (6-22) Glucose 91 (80-110) mg/dL Hemoglobin A1c 5.8 (4.0-6.0) % Lactate 1.1 (0.7-2.1) mmol/L Calcium 8.1 L (8.4-10.2) mg/dL Total Bilirubin 0.6 (0.2-1.3) mg/dL AST 22 (17-59) IU/L ALT 15 (<50) IU/L Alkaline Phosphatase 100 (38-126) U/L Troponin I < 0.012 (0.01-0.034) ng/mL NT-Pro-B Natriuret Pep 670 H (<125) pg/mL Total Protein 6.5 (6.3-8.2) g/dL Albumin 3.7 (3.5-5.0) g/dL Globulin 2.8 (1.7-4.1) g/dL Albumin/Globulin Ratio 1.3 (1.0-2.8) Procalcitonin 0.043 (<0.5) ng/mL SARS-CoV-2 (PCR) Negative (Negative) Influenza A (RT-PCR) Flu a negative (NEGATIVE) Influenza B (RT-PCR) Flu b negative (NEGATIVE) RSV (PCR) Negative (Negative) ECG Data Attestation: I personally reviewed and interpreted this ECG as follows: Interpretation: Normal sinus rhythm with rate of 85, no obvious ST segment elevation or depression changes. T-wave inversion lead 3 noted, flat in lead AVF. CO 166, QRS 88, QTC 399. MDM Narrative Medical decision making narrative: 58-year-old with chronic appearing bilateral lower extremity edema, but some erythema above knees both sides, some crusted anterior and posterior skin lesion, reportedly has been weak being from the right side, no fluctuance or discharge noted. Crackles and some retractions on exam, RT reported he had initial wheezing, on my exam I heard no wheezing but he had already been given Solu-Medrol and Atrovent, heard predominance of crackles. Not usually on home oxygen, 88% room air, improved on 2 L oxygen. Less retractions after SVN and oxygen. BNP mildly elevated. Chest x-ray suggestive of pulmonary edema. IV Lasix given. Blood culture sent for suspected cellulitis, recent weeping reported, we will provide MRSA coverage, IV vancomycin, IV ceftriaxone. We will contact hospitalist regarding admission Case discussed with hospitalist Dr. Parker, accepts patient for admission to observation Critical Care Time Critical Care Time Critical Care Time: Yes Total Critical Care Time: 35 Attestation: The high probability of a clinically significant, sudden or life threatening deterioration of the [cardiopulmonary] system(s) required my full and direct attention, intervention and personal management. The aggregate critical care time was [35] minutes. This time is in addition to time spent performing reported procedures but includes the following: [x] Data Review and interpretation [x] Patient assessment and monitoring of vital signs [x] Documentation [x] Medication orders and management Discharge Plan Departure Patient Disposition: Admitted as Observation Clinical Impression: Dyspnea, COPD exacerbation, Congestive heart failure, Cellulitis of right leg, Cellulitis of left leg, Edema of both lower extremities Admit Date/Time: 02/01/24 14:14 Admit Provider: Ramos Parker
--- NOTE | 2024-02-01 12:59 | PC.NURSE ---
Pt presents for right leg chronic wound and bilateral leg redness, pain, swelling. Pt's friend/caregiver states he has had a worse time breathing and sounds more wet than usual. This has progressed the last 4 days. Pt denies SOB, dizziness, chest pain. Pt gurgling with speech, bilateral crackles. More difficult time getting around at home. Chronic low back pain he was taking hydrocodone for until he ran out of pain medications yesterday.
[2024-02-01 13:09] LABS: Add Manual Diff / Slide Review NO; Basophils Absolute Auto 0 /uL (0-100); Basophils Percent Auto 0.3 % (0-2); Eosinophils Absolute Auto 100 /uL (0-450); Eosinophils Percent Auto 1.1 % (2-4); Hematocrit 45.6 % (41-53); Hemoglobin 14.6 g/dL (13.5-17.5); Lymphocytes Absolute Auto 700 /uL (1100-4500); Lymphocytes Percent Auto 12.9 % (25-40); Mean Corpuscular HGB Conc 31.9 % (30-36); Mean Corpuscular Volume 94.2 fL (80-100); Monocytes Absolute Auto 600 /uL (0-900); Monocytes Percent Auto 11.8 % (3-14); Neutrophils Absolute Auto 3900 /uL (1500-7000); Neutrophils Percent Auto 73.9 % (50-75); Platelet Count 200 X10^3/uL (150-400); Red Blood Cell Count 4.84 X10^6/uL (4.5-5.9); Red Cell Distribution Width 16.8 % (11.6-14.8); White Blood Cell Count 5.3 X10^3/uL (4.5-11.0)
[2024-02-01] MEDS: methylPREDNISolone 125 MG/2 ML VIAL IV (13:17)
[2024-02-01 13:18] LABS: INR 1.2 (0.9-1.3)
[2024-02-01 13:21] LABS: Lactate (Lactic Acid) 1.1 mmol/L (0.7-2.1)
[2024-02-01 13:22] LABS: Alanine Aminotransferase 15 IU/L (<50); Albumin 3.7 g/dL (3.5-5.0); Albumin Globulin Ratio 1.3 (1.0-2.8); Alkaline Phosphatase 100 U/L (38-126); Aspartate Aminotransferase 22 IU/L (17-59); BUN Creatinine Ratio 6.3 (6-22); Bilirubin Total 0.6 mg/dL (0.2-1.3); Blood Urea Nitrogen 4 mg/dL (9-20); Calcium 8.1 mg/dL (8.4-10.2); Carbon Dioxide 38 mmol/L (22-32); Chloride 104 mmol/L (98-107); Estimated Glomerular Filt Rate > 60 mL/min (>60); Globulin 2.8 g/dL (1.7-4.1); Glucose 91 mg/dL (80-110); HEMOLYSIS < 15 (0-50); Sodium 141 mmol/L (137-145); Total Protein 6.5 g/dL (6.3-8.2)
[2024-02-01 13:33] LABS: NT-proBNP (BNP-Adult 18+) 670 pg/mL (<125); Troponin I < 0.012 ng/mL (0.01-0.034)
[2024-02-01] MEDS: FUROSEMIDE 40 MG/4 ML VIAL IV ×2 (13:48→16:43)
--- NOTE | 2024-02-01 14:20 | PM.HP.1 ---
History of Present Illness History of Present Illness Date Patient Seen: 02/01/24 Chief complaint: weeping mass on Rt leg Narrative: Angus Reid is a 58yo M with PMH of COPD on 2L O2 but noncompliant, chronic 1.5ppd smoker for 45yrs, CASS but noncompliant with CPAP, venous insufficiency, HTN and gout who presents with worsening dyspnea and LE swelling. Patient was admitted a few weeks ago and discharged home to see PCP and contact representative. He hasn't done these things and reports not doing much at home. He lives alone with his dog. He says his breathing been more short lately and he has weeping from both legs. He has oxygen at home but doesn't use it. He says now I'm going to. He denies CP, NV, abd pain, or diarrhea. [facility] Medical History Hypoxia Degenerative joint disease of both hips Chronic pain of both knees Gout Bilateral lower extremity edema Chronic pain Iliotibial band syndrome, left leg Tobacco abuse counseling Right hip pain Social History household members: none Smoking Status: Current every day smoker Tobacco: How many years used: 45 alcohol intake: current substance use type: does not use Meds Home Medications and Allergies Home Medications Medication Instructions Recorded Confirmed Type albuterol sulfate 90 mcg/actuation 2 puff inhalation Q4H PRN 08/12/20 02/01/24 Rx aerosol inhaler (Proventil HFA) shortness of breath or wheezing #8.5 ea tiotropium bromide 2.5 2 puff inhalation DAILY #4 grams 02/09/22 02/01/24 Rx mcg/actuation mist for inhalation (Spiriva Respimat) betamethasone dipropionate 0.05 % See Rx Instructions .Route 11/25/22 02/01/24 Rx topical ointment .COMPLEX #45 grams varenicline 1 mg tablet 1 mg PO BID #56 tabs 03/14/23 02/01/24 Rx lisinopril 20 mg tablet 20 mg PO BID 01/10/24 02/01/24 History hydrocodone 7.5 mg-acetaminophen See Rx Instructions .Route 01/12/24 02/01/24 Rx 325 mg tablet .COMPLEX #150 tabs Allergies Allergy/AdvReac Type Severity Reaction Status Date / Time No Known Drug Allergies Allergy Unknown Verified 02/01/24 12:35 Review of Systems Review of Systems Narrative: All other systems reviewed with the patient and are negative unless otherwise stated. Exam Vital Signs (past 8 hours): - 02/01/24 12:28 02/01/24 12:31 02/01/24 12:33 Temperature 98.8 F Pulse Rate 91 H 91 H 91 H Respiratory Rate 18 30 H 32 H Blood Pressure 161/79 H Pulse Oximetry 92 89 L 90 L Oxygen Delivery Method Room Air Room Air Oxygen Flow Rate Fraction of Inspired Oxygen 02/01/24 12:33 02/01/24 12:53 02/01/24 13:00 Temperature Pulse Rate 87 82 Respiratory Rate 22 24 Blood Pressure 156/85 H Pulse Oximetry 90 L 99 Oxygen Delivery Method Room Air Oxygen Flow Rate 0 Fraction of Inspired Oxygen 21 02/01/24 13:00 02/01/24 13:30 02/01/24 13:31 Temperature Pulse Rate 79 83 Respiratory Rate 29 H 31 H Blood Pressure 162/84 H Pulse Oximetry 95 92 Oxygen Delivery Method Oxygen Flow Rate Fraction of Inspired Oxygen 02/01/24 13:31 02/01/24 14:00 02/01/24 14:01 Temperature Pulse Rate 88 91 H Respiratory Rate 29 H 31 H Blood Pressure 185/97 H Pulse Oximetry 94 87 L Oxygen Delivery Method Room Air Oxygen Flow Rate Fraction of Inspired Oxygen 02/01/24 14:01 02/01/24 14:10 02/01/24 14:10 Temperature Pulse Rate 84 Respiratory Rate 27 H Blood Pressure 191/109 H 165/80 H Pulse Oximetry 94 Oxygen Delivery Method Nasal Cannula Oxygen Flow Rate 1.5 Fraction of Inspired Oxygen Fraction of Inspired Oxygen 21 SaO2/FiO2 Ratio 428 Oxygen Delivery Method Nasal Cannula Oxygen Flow Rate 1.5 Narrative Exam Narrative: GEN: ill-appearing, somnolent obese male HEENT: moist mucous membranes, PERRL NECK: trachea midline, no JVD CV: regular rate and rhythm, no murmurs PULM: bilateral rhonchi ABD: soft, nontender, obese, no organomegaly, intertrigo in groin EXT: 1-2+ edema, venous stasis changes with crusting NEURO: somnolent, drifts off to sleep, oriented, no focal deficits Objective Labs 02/01/24 13:00 02/01/24 13:00 Labs: Laboratory Results - last 24 hr 02/01/24 13:00 WBC 5.3 RBC 4.84 Hgb 14.6 Hct 45.6 MCV 94.2 MCH 30.0 MCHC 31.9 RDW 16.8 H Plt Count 200 Neut % (Auto) 73.9 Lymph % (Auto) 12.9 L [place] % (Auto) 11.8 Eos % (Auto) 1.1 L Baso % (Auto) 0.3 Neut # (Auto) 3900 Lymph # (Auto) 700 L [place] # (Auto) 600 Eos # (Auto) 100 Baso # (Auto) 0 PT 14.0 H INR 1.2 Sodium 141 Potassium 4.0 Chloride 104 Carbon Dioxide 38 H BUN 4 L Creatinine 0.64 L Estimated GFR > 60 BUN/Creatinine Ratio 6.3 Glucose 91 Lactate 1.1 Calcium 8.1 L Total Bilirubin 0.6 AST 22 ALT 15 Alkaline Phosphatase 100 Troponin I < 0.012 NT-Pro-B Natriuret Pep 670 H Total Protein 6.5 Albumin 3.7 Globulin 2.8 Albumin/Globulin Ratio 1.3 Assessment & Plan Assessment & Plan narrative: # acute diastolic heart failure -CXR with pulm edema, LE edema present -lasix 40mg IV daily -previous echo with EF 65-70% in December 2023, will not repeat -should likely be on home diuretic on discharge # chronic hypoxic respiratory failure -supposed to be on 2L at home, but noncompliant -currently on baseline 2L -patient very somnolent, check VBG and if retaining then confirm with ABG # COPD exacerbation with possible PNA -patient has lots of secretions, rhonchi on exam, CXR with retrocardiac opacity -rocephin and azithro -prednisone 40mg x5 days -nebs, mucinex -[employer]GER [employer] eval to check swallow # failure to thrive -PT/OT eval -FUNDRAISING MANAGER consult # alcohol use -drinks 4 beers daily -monitor for signs of withdrawal # HTN -continue lisinopril # intertrigo -nystatin BID Chronic problems: # Psoriasis, present on admission and active. # Gout, present on admission and active. # Morbid obesity, present on admission and active. # Venous insufficiency, present on admission and active. # Tobacco dependence, present on admission and active. # Opiate dependence, present on admission and active. Continue vicodin. Code status is full code. DVT prophylaxis with Lovenox. Proxy is brother Danish Reid. I have reviewed home meds and used all available resources to reconcile the home meds. Case discussed with ED physician/APC and patient will be admitted to the hospitalist service for further workup and management. This patient will be admitted as observation and will require less than 2 midnights of hospital time to treat acute diastolic CHF.
--- NOTE | 2024-02-01 14:42 | PC.NURSE ---
IV antibiotics not given yet d/t requiring lab draw for blood cultures. Lab attempting draw.
--- NOTE | 2024-02-01 14:43 | PC.NURSE ---
HYDRAULIC BOOM OPERATOR note: this human services instructor with the assistance of [employer] student Shahla changed pt. bed linen while pt. stood and used a bedside urinal with stability support from [employer] student, pt. refused brief and prefered to be without. bed linen changed and assisted pt. back into bed with pillow support behind back and head/neck. call light within reach, and encouraged pt. to use call light for needs.
--- NOTE | 2024-02-01 15:36 | PC.NURSE ---
Patients lungs sounds course in all lobato. He is on 1L of oxygen and satting in the 90s. Patient smokes 1.5 packs of cigarettes a day and states that he drinks 4 beers every day. He also states that he has not had any issues with withdrawal or seizures in the past. Unsure if patient has ever tried to stop drinking. He also states that he takes Vicodin 3 to 4 times a day for chronic back pain. Tele is not needed for patient. He is using the urinal at bedside. Skin issues can be seen under skin assessment in the computer.
[2024-02-01 15:37] LABS: Influenza A - CEPHEID Flu A NEGATIVE (NEGATIVE); Influenza B - CEPHEID Flu B NEGATIVE (NEGATIVE); Respiratory Syncytial Virus Negative (Negative)
[2024-02-01 15:42] LABS: COVID-19 CEPHEID 4-PLEX PCR Negative (Negative)
[2024-02-01] MEDS: AZITHROMYCIN 250 MG TABLET 500 MG PO (16:39)
[2024-02-01] MEDS: predniSONE 20 MG TABLET 40 MG PO (16:42)
[2024-02-01] MEDS: HYDROCODONE/ACET 5/325 TABLET 1.5 TAB PO ×2 (16:43→20:46)
[2024-02-01] MEDS: cefTRIAXone 2,000 MG in SODIUM CHLORIDE 0.9% 100 ML 200 MG IV (16:43)
[2024-02-01 16:45] LABS: Procalcitonin 0.043 ng/mL (<0.5)
[2024-02-01] MEDS: VANCOMYCIN 2,000 MG/400 ML PIGGYBACK 200 MG IV (17:39)
[2024-02-01 17:43] LABS: Hemoglobin A1C% w Est Avg Glu 5.8 % (4.0-6.0)
[2024-02-01] MEDS: guaiFENesin ER 600 MG TAB PO (20:46)
[2024-02-01] MEDS: lisinopriL 20 MG TABLET PO (20:46)
[2024-02-01] MEDS: NICOTINE 21 MG PATCH TOP (20:47)
[2024-02-02] VITALS (8 sets, daily range): BP systolic 120–142; BP diastolic 52–77; PULSE 86–97; RESP 18–27; TEMP 36.1–36.7; O2SAT 89–94; BMI 40.2
[2024-02-02] MEDS: HYDROCODONE/ACET 5/325 TABLET 1.5 TAB PO ×5 (00:55→18:27)
[2024-02-02 07:13] LABS: Add Manual Diff / Slide Review NO; Basophils Absolute Auto 0 /uL (0-100); Basophils Percent Auto 0.1 % (0-2); Eosinophils Absolute Auto 0 /uL (0-450); Hematocrit 47.2 % (41-53); Hemoglobin 15.1 g/dL (13.5-17.5); Lymphocytes Absolute Auto 500 /uL (1100-4500); Mean Corpuscular HGB Conc 31.9 % (30-36); Mean Corpuscular Hemoglobin 30.2 PG (26-34); Mean Corpuscular Volume 94.7 fL (80-100); Monocytes Absolute Auto 300 /uL (0-900); Monocytes Percent Auto 5.6 % (3-14); Neutrophils Absolute Auto 4300 /uL (1500-7000); Neutrophils Percent Auto 84.3 % (50-75); Platelet Count 194 X10^3/uL (150-400); Red Blood Cell Count 4.99 X10^6/uL (4.5-5.9); Red Cell Distribution Width 16.6 % (11.6-14.8); White Blood Cell Count 5.1 X10^3/uL (4.5-11.0)
[2024-02-02 07:18] LABS: BUN Creatinine Ratio 13.6 (6-22); Blood Urea Nitrogen 9 mg/dL (9-20); Calcium 8.1 mg/dL (8.4-10.2); Chloride 98 mmol/L (98-107); Estimated Glomerular Filt Rate > 60 mL/min (>60); Glucose 133 mg/dL (80-110); HEMOLYSIS < 15 (0-50); Sodium 141 mmol/L (137-145)
[2024-02-02 07:26] LABS: Carbon Dioxide 39 mmol/L (22-32)
[2024-02-02] MEDS: ALBUTEROL/IPRATROPIUM 3 ML AMPUL INH ×3 (08:52→19:42)
[2024-02-02] MEDS: cefTRIAXone 1,000 MG in SODIUM CHLORIDE 0.9% 100 ML 200 MG IV (10:01)
[2024-02-02] MEDS: ENOXAPARIN 40 MG/0.4 ML SYRINGE SUBCUT ×2 (10:02→21:00)
[2024-02-02] MEDS: NICOTINE 21 MG PATCH TOP (10:02)
[2024-02-02] MEDS: FUROSEMIDE 40 MG/4 ML VIAL IV (10:02)
[2024-02-02] MEDS: lisinopriL 20 MG TABLET PO ×2 (10:03→21:00)
[2024-02-02] MEDS: predniSONE 20 MG TABLET 40 MG PO (10:03)
[2024-02-02] MEDS: NYSTATIN CREAM 30 GM 1 APPLIC TOP (10:04)
[2024-02-02] MEDS: guaiFENesin ER 600 MG TAB PO ×2 (10:04→21:00)
[2024-02-02] MEDS: AZITHROMYCIN 250 MG TABLET 500 MG PO (10:04)
--- NOTE | 2024-02-02 10:47 | OT.IP.EVAL ---
Past Medical History (Last Reviewed 01/10/24 @ 15:57 by Javier Killian MD) Bilateral lower extremity edema Chronic pain Chronic pain of both knees Degenerative joint disease of both hips Gout Hypoxia Iliotibial band syndrome, left leg Right hip pain Tobacco abuse counseling Occupational Therapy Inpatient Evaluation/Re-Eval M1 PT/OT-IP Prior Functional Status Start: 02/02/24 11:38 Freq: NEEDED Status: Active Protocol: Document 02/02/24 11:38 [facility] (Rec: 02/02/24 12:07 [facility] [id number]) Medical Review Prior Functional Status Communication Independent Mobility and Gait Pt states uses his FWW at all times. Activities of Daily Living and IADL's Pt states independent with all ADL and IADL needs and uses LB dressing equipment as needed. Per pt has had both hips replaced, rigth side in August and left side last April. Social History Household Members none Living Arrangements Apartment/Condo Number of Floors (Floors) One Floor Number of Stairs To Enter/Railing? Pt lives in a condo with 3 steps to enter and bilateral rails. Home Environment Standard Height Toilet,Walk in Shower Home Equipment Front Wheel Walker,Straight Cane,Shower Seat without Backrest,Property Adjuster,Sock Aid,Grab Bars Near Toilet Additional Social History Comment Pt lives alone with his dog. M2 OT-IP Current Condition Start: 02/02/24 11:38 Freq: Status: Active Protocol: Document 02/02/24 11:38 [facility] (Rec: 02/02/24 12:07 [facility] [id number]) Occupational Therapy Current Condition Current Condition Evaluation Date 02/02/24 Treatment Diagnosis Hypoxia, COPD exacerbation M3 OT- IP Subjective and Pain Start: 02/02/24 11:38 Freq: Status: Active Protocol: Document 02/02/24 11:38 [facility] (Rec: 02/02/24 12:07 [facility] [id number]) OT- Subjective Occupational Therapy Visit Type Type Initial Evaluation Visit Start Time 09:56 Visit Stop Time 10:47 Occupational Therapy Visit Comments Patient Comments Pt agreed to get up and wanting to use the urinal. Patient/Caregiver Goals To go home. OT Pain Assessment Pain When Pain Assessed At Rest Pain Present Pain Present Pain Reported M4 OT- IP ADL's Start: 02/02/24 11:38 Freq: Status: Active Protocol: Document 02/02/24 11:38 [facility] (Rec: 02/02/24 12:07 [facility] [id number]) OT [id number] Comments OT Self-Feeding Comments Not at meal time. Pt coughing right after taking medications with water. Asked pt to drink water again later and no coughing noted. Pt's voice however sounds wet. OT ADL-Grooming Comments OT Grooming Comments Pt refused. OT ADL-Oral Care Comments Oral Care Comments Pt refused. OT ADL-Dressing General Eval Lower Body Dressing Ability Minimal Assistance Comments OT Dressing Comments Due to his swollen feet, assist to get the heel into his shoe. OT ADL-Toileting General Evaluation Toileting Ability Independent after use of urinal. Areas Needing Assistance Perform Perineal Hygiene Devices Toileting Assistive Devices Urinal Comments OT Toileting Comments Pt able to independently use the urinal while standing in front of the recliner. OT ADL-Bathing Comments OT Bathing Comments Educated to pt is having trouble washing pericare needs to use e long thin towel to assist to wash. M5 OT- IP IADL's Start: 02/02/24 11:38 Freq: Status: Active Protocol: Document 02/02/24 11:38 [facility] (Rec: 02/02/24 12:07 [facility] [id number]) OT-Instrumental Activities of Daily Living Home Safety Awareness Awareness of Need for Assistance at Home Good Awareness Ability to Problem Solve Emergency Able to Problem Solve Situations Home Safety Comments Pt able to answer all home safety questionairre Medication Management Medication Management No Deficits Identified Money Management Money Management No Deficits Identified Meal Preparation Meal Preparation Comments Suggested pt get a 4ww to better assist with IADl needs. Manager In Home Manager In Home Comments Pt at this time would benefit from assist. M6 OT- IP Functional Cognition Start: 02/02/24 11:38 Freq: Status: Active Protocol: Document 02/02/24 11:38 [facility] (Rec: 02/02/24 12:07 [facility] [id number]) Cognitive Factors Limiting Selfcare Function Cognitive Ability Level of Alertness Alert Patient Orientation Name,Age,Birthday,Month,Date, Year,Day of Week,Place, Situation Attention Span Ability Capable of Focused Attention, Capable of Sustained Attention Ability to Follow Commands Able to Follow Multi-Step Commands Cognitive Comments Cognitive Assessment Comments Pt appears at baseline. Pt has skin issues and noted scratches all over his body. Pt states has not seen as dermatology over 10 years. 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 In addition pt states wears the O2 at night but not all the time. OT- Vision and Hearing OT- Hearing Assessment OT- Hearing Assessment WFL OT- Vision Assessment Visual Acuity WFL Visual Attentiveness WFL Occular Pursuits WFL Visual Convergence WFL Visual Miles WFL M7 OT- IP Mobility and Balance Start: 02/02/24 11:38 Freq: Status: Active Protocol: Document 02/02/24 11:38 [facility] (Rec: 02/02/24 12:07 [facility] [id number]) OT- Bed Mobility Assessment Supine to Sit Supine to Sit Assist Independent OT-Transfer Assessment Sit to and From Stand Sit to and from Stand Standby Assistance Transfers Transfer Ability Standby Assistance Technique Transfer Destination Bed,Chair Transfer Technique Stand Step Pivot Devices Transfer Assistive Devices Gait Belt,Front Wheeled Walker Comments Mobility Comments SBA , mainly assist for O2 management and IV needs at this time. OT- Balance Assessment Sitting Balance and Reactions Static Sitting Balance Ability Normal Dynamic Sitting Balance Ability Good Standing Balance and Reactions Static Standing Balance Ability Good Dynamic Standing Balance Ability Good M8 OT- IP Objective Assessments Start: 02/02/24 11:38 Freq: Status: Active Protocol: Document 02/02/24 11:38 [facility] (Rec: 02/02/24 12:07 [facility] [id number]) OT Gross Range of Motion Upper Extremity Range of Motion Assessment Within Functional Limits OT Strength Upper Extremity Strength Assessment Within Functional Limits OT- Coordination Assessment Upper Extremity Finger to Nose Test Within Functional Limits OT-Muscle Tone Assessment Muscle Tone WNL Yes M9 OT- IP Assessment and Plan Start: 02/02/24 11:38 Freq: Status: Active Protocol: Document 02/02/24 11:38 [facility] (Rec: 02/02/24 12:07 [facility] [id number]) OT Summary Assessment and Plan Potential Rehabilitation Potential Good Analytic Complexity at Evaluation Moderate Summary OT Impairments Balance,Functional Mobility, Activity Tolerance Progress Towards Goals Progressing Toward Goals Assessment Summary Pt MOD complexity and here due to hypoxia and COPD exacerbation with main barrier is decreased activity tolerance and now on O2 during the day. Pt states does not need any OT at this time and wanting just to get medically stable prior to going home. Able to educated pt on how to increase his completeness for hygiene and bathing needs. Discharge pt for OT services. Pt to be working with PT for endurance needs. Frequency of Treatment Frequency Of Treatment Discharge Discharge Recommendations Transportation Needs at Discharge Private Vehicle
--- NOTE | 2024-02-02 11:05 | PT.IIE ---
Current Diagnoses Acute diastolic (congestive) heart failure (02/01/24) Medical History (Last Reviewed 01/10/24 @ 15:57 by Javier Killian MD) Bilateral lower extremity edema Chronic pain Chronic pain of both knees Degenerative joint disease of both hips Gout Hypoxia Iliotibial band syndrome, left leg Right hip pain Tobacco abuse counseling Physical Therapy Inpatient Evaluation/Re-Eval M1 PT/OT-IP Prior Functional Status Start: 02/02/24 13:18 Freq: NEEDED Status: Active Protocol: Document 02/02/24 11:05 AB (Rec: 02/02/24 13:43 AB [id number]) Medical Review Prior Functional Status Communication able to make needs known Mobility and Gait pt stated that he was modified independent with all mobilities and ambulation with FWW Activities of Daily Living and IADL's per OT note: Pt states independent with all ADL and IADL needs and uses LB dressing equipment as needed. Per pt has had both hips replaced, rigth side in August and left side last April. Prior Functional Level (Other details) pt stated that he only use O2 at night Social History Household Members none Living Arrangements Mobile home Number of Floors (Floors) One Floor Number of Stairs To Enter/Railing? 3 steps B rails to enter the house Home Environment Walk in Shower Home Equipment Front Wheel Walker,Shower Seat without Backrest,Grab Bars In Shower Additional Social History Comment pt stated that he has a disassembler that comes in 4-6x /week to assist him with house chores and can assist him with whatever he needs per pt. M2 PT-IP Current Condition Start: 02/02/24 13:18 Freq: NEEDED Status: Active Protocol: Document 02/02/24 11:05 AB (Rec: 02/02/24 13:43 AB [id number]) Physical Therapy Current Condition Current Condition Evaluation Date 02/02/24 Treatment Diagnosis COPD exacerbation; BLE cellulitis; CHF; difficulty in walking Onset Date 02/01/24 M3 PT-IP Subjective Start: 02/02/24 13:18 Freq: NEEDED Status: Active Protocol: Document 02/02/24 11:05 AB (Rec: 02/02/24 13:43 AB [id number]) Subjective Physical Therapy Visit Type Type Initial Evaluation Visit Start Time 11:05 Visit Stop Time 11:30 Number of ASBESTOS BRAKE LINING FINISHER HELPER Visits 0 Physical Therapy Visit Comments Patient Comments agreeable to do PT Therapy Pain Assessment Pain When Pain Assessed At Rest Pain Present Pain Present Pain Reported Location low back Intensity 6 Scale Used Numeric (0 - 10) Description Chronic Pain Management Techniques Distraction,Modification of Treatment,Re-positioning, Timing of Activity with Medications M4 PT-IP Mobility and Gait Start: 02/02/24 13:18 Freq: NEEDED Status: Active Protocol: Document 02/02/24 11:05 AB (Rec: 02/02/24 13:43 AB [id number]) PT-Bed Mobility Assessment Supine to Sit Supine to Sit Standby Assistance Sit to Supine Sit to Supine Standby Assistance PT-Transfer Assessment Sit to and From Stand Sit to and from Stand Contact Guard Assistance,1 Person Assistance,Use of Upper Extremities Equipment Transfer Assistive Device Gait Belt,Front Wheeled Walker Orthotic/Prosthetic Devices or Brace: No Transfers Transfer Destination Bed,Chair Transfer Technique ambulated Transfer Ability Level of Assist Standby Assistance,Contact Guard Assistance Comments Mobility Comments pt sitting on the chair and agreeable to do PT. obtained PLOF and home set up from pt. BP: 116/78, O2 sat with 1L/ min O2 supplement: 91-92%. cued pt for PLB and O2 sat increased to 94-96% DC: 94 pt completed sit to stand from chair CGA and ambulated in room using FWW CGA ~ 30 ft. pt presents with shuffling antalgic gait with slow pace. pt sat on EOB. O2 sat checked: 87%. cued for PLB and O2 sat increased to 92% in ~ 10 sec. pt completed sit<> supine SBA. sit to stand from EOB SBA and step transfer to chair using fWW SBA to CGA. positioned pt on the chair. call light and table placed within reach. Gait Assessment Gait Gait Assistance Required: Contact Guard Assist Distance (Feet) 30 Able to Maintain Weight Bearing Status Yes During Gait Assistive Devices Assistive Device Gait Belt,Front Wheeled Walker Orthotic/Prosthetic Devices or Brace: No Gait Deviations General Gait Pattern Decreased Stride Length, Decreased Feet Clearance Factors Limiting Gait Function Factors Limiting Gait Function Decreased Activity Tolerance, Decreased Strength,Limited Range of Motion,Pain,Poor Balance,Poor Safety Awareness, Respiratory Distress PT-Balance Assessment Sitting Balance and Reactions Static Sitting Balance Ability Normal Dynamic Sitting Balance Ability Good Standing Balance and Reactions Static Standing Balance Ability Fair Dynamic Standing Balance Ability Fair Device Used FWW M5 PT-IP Objective Assessments Start: 02/02/24 13:18 Freq: NEEDED Status: Active Protocol: Document 02/02/24 11:05 AB (Rec: 02/02/24 13:43 AB [id number]) Orientation Orientation/Cognition Level of Alertness Alert Orientation Name,Place,Situation Language Function Ability No Deficits Noted Safety Awareness Decreased Safety Awareness Memory Description No Deficits Noted Gross Range of Motion Lower Extremity ROM Assessment Within Functional Limits Strength Lower Extremity Strength Assessment Within Functional Limits Coordination Assessment Gross Coordination Gross Coordination WNL Muscle Tone Muscle Tone WNL Yes M6 PT-IP Treatment Start: 02/02/24 13:18 Freq: NEEDED Status: Active Protocol: Document 02/02/24 11:05 AB (Rec: 02/02/24 13:43 AB [id number]) Physical Therapy Treatment Education Education Provided Safety M7 PT-IP Assessment and Plan Start: 02/02/24 13:18 Freq: NEEDED Status: Active Protocol: Document 02/02/24 11:05 AB (Rec: 02/02/24 13:43 AB [id number]) PT Summary Assessment and Plan Potential Rehabilitation Potential Fair Status of Condition at Evaluation Evolving Summary Impairments Pain,ROM,Strength,Balance, Coordination,Sensation,Tone, Cognition,Bed Mobility, Transfers,Gait,Activity Tolerance Assessment Summary pt is a 58 y/o M who is admitted for COPD exacerbation , CHF and also has BLE cellulitis. pt requiring SBA to CGA with mobility using FWW but with decrease in O2 sat after ambulation to 87% using 1L/min o2 supplement. pt plans to go home and can ask her disassembler to assist him if needed. pt will benefit from HHPT. Goals Bed Mobility Goal Independent Transfer Goal Independent,Front Wheeled Walker Gait Goal Independent,Front Wheel Walker Gait Distance 200 Other Goals up/down 3 steps B rails mod I Days to Meet Goals 10 Frequency of Treatment Frequency Of Treatment Once a Day Treatment Plan Physical Therapy Treatment Plan Bed Mobility Training,Transfer Training,Gait Training, Therapeutic Exercise,Balance Retraining,Discharge Planning, Hot or Cold Pack,Neuromuscular Re-ed,Coordination Retraining Precautions Other Precautions O2 sat Recommendations To Nursing Amount of Assist Needed 1 Person Assist Discharge Recommendations PT Discharge Recommendations Home with Assistance,Home Health Transportation Needs at Discharge Private Vehicle
--- NOTE | 2024-02-02 11:43 | PC.NURSE ---
Patient worked with physical therapy and he is sitting up in the chair. He did cough prior and then he was better. He is on 1L of O2 and sats at 89%, Patient does have COPD, and smokes 1.5 packs of cigarettes a day. His lung sounds are course throughout. He has a nicotine patch on his r.upper shoulder and was given vicodin for complaints of pain to his back. Resting now.
--- NOTE | 2024-02-02 12:02 | ST.IPCSEOM ---
Visit Care Team Role Provider Type [employer] DO Primary Care Provider Physician Specialty: Family Practice Address: [address] [place] [address], [id number] Email: Zenon Alfaro MD Emergency Provider Physician Referring Provider Specialty: Emergency Medicine Address: [address] [place] [address], [id number] Fax: Email: [email or web address] Admit Provider Physician Attending Provider Specialty: Internal Medicine Address: [address] [place] [address], [id number] Email: [email or web address] Past Medical History (Last Reviewed 01/10/24 @ 15:57 by Javier Killian MD) Bilateral lower extremity edema (Medical) Chronic pain (Medical) Chronic pain of both knees (Medical) Degenerative joint disease of both hips (Medical) Gout (Medical) Hypoxia (Medical) Iliotibial band syndrome, left leg (Medical) Right hip pain (Medical) Tobacco abuse counseling (Medical) Speech-Language Pathology Swallow Evaluation BASKETBALL SCOUT Clinical Swallow Evaluation Start: 02/02/24 11:45 Freq: Status: Active Protocol: Document 02/02/24 11:46 CG (Rec: 02/02/24 12:01 CG [id number]) Clinical Swallow Evaluation Session Time Visit Start Time 11:35 Visit Stop Time 11:55 Total Visit Minutes 20 Visit Information Visit Number [address] Parker Reason for Referral SOB, coarse lung sounds, rule out aspiration Setting Assessment Location Acute Care Visit Type Note Type Initial evaluation Next Note Type Next Note Type Discharge Summary Patient Information History Per H&P: Angus Reid is a 58yo M with PMH of COPD on 2L O2 but noncompliant, chronic 1. 5ppd smoker for 45yrs, CASS but noncompliant with CPAP, venous insufficiency, HTN and gout who presents with worsening dyspnea and LE swelling. Patient was admitted a few weeks ago and discharged home to see PCP and grocery store associate. He hasn't done these things and reports not doing much at home. He lives alone with his dog. He says his breathing been more short lately and he has weeping from both legs. He has oxygen at home but doesn't use it. He says now I'm going to. He denies CP, [place], abd pain, or diarrhea. Pt was referred to ST due to PNA a possibility based on CXR and ongoing SOB. BASKETBALL SCOUT abial requested to assess for whether aspiration was related to pt symptoms. Subjective Observations Pt was seated upright in hospital chair upon ST entry to the room with nasal canula in place. Pt was alert, oriented, cooperative, and agreeable to ST evaluation. He presented with SOB at baseline with coarse breath/ voice sound. Pt had cups of water with straws present on bedside table. Reported by Patient/Caregiver Other Symptoms Other Comment Aspiration within differential ; SOB Current Diet Regular (IDDSI 7) Baseline Feeding Method Independent in self-feeding The IDDSI Framework Protocol: IDDSI.1 Objective Assessment Mental Status Alert,Responsive,Cooperative Oral Integrity WFL Dentition Missing teeth Lip Function Within normal limits Pucker Within normal limits Lip Retraction Within normal limits Tongue Function Within normal limits Tongue Protrusion Within normal limits Tongue Lateralization Within normal limits Jaw Function Within normal limits Jaw Opening Within normal limits Jaw Closing Within normal limits Respiratory Sufficiency Moderate impairment Comment OME mostly unremarkable aside from the following: - Pt has no orgininal teeth but does have partial upper and lower dental implants and reports no difficulty chewing. -Voice gravelly/coarse -Cued cough wet/coarse Food and Liquid Trials Position During Assessment Upright (90 degrees) Liquids Trialed Thin (IDDSI 0) Solid Trials Minced & Moist (IDDSI 5), Regular (IDDSI 7) Administration Type Cup consecutive sips,Straw Oral Impairment Within normal limits Oral Phase Comments Oral phase within normal limits across trials thin water (IDDSI 0), minced and moist solids (IDDSI 5, jimbo crackers crushed and mixed with pudding), regular solids (IDDSI 7, jimbo crackers). Pharyngeal Impairment Within functional limits Pharyngeal Phase Comments Trials thin liquid via straw sip: audible swallow which can be indicative of discoordination of swallow physiology. However, no cough /throat clearing. No overt s/ sx aspiration, though silent aspiration cannot be ruled out without an instrumental assessment. 3oz water challenge via consecutive cup sip: audible swallow which can be indicative of discoordination of swallow physiology. However, no cough/throat clearing. No overt s/sx aspiration, though silent aspiration cannot be ruled out without an instrumental assessment. IDDSI 5 and IDDSI 7 (minced and moist, regular): No overt s/sx aspiration/penetration. Katlyn Swallow Protocol Yes Results Pass The IDDSI Framework Protocol: IDDSI.1 Findings Swallowing Function Within functional limits Swallowing Function Comments Within functional limits. No overt s/sx aspiration. Severity of Swallow Impairment Within functional limits Prognosis Fair Based on Comorbidities Impact on Safety and Functioning No limitations Recommendations Instrumental Assessment No Swallowing Treatment No Recommended Solids Regular (IDDSI 7) Recommended Liquids Thin (IDDSI 0) Medication Recommendations As Tolerated Discharge Recommendations Home,Home with Home Health Education Patient/Caregiver Education Described results of evaluation,Patient expressed understanding of evaluation
--- NOTE | 2024-02-02 12:21 | OT.IPNOTE ---
Pt has no further OT needs, hospitalist notified, discharge from OT services.
--- NOTE | 2024-02-02 13:41 | P.PN_ITS ---
Subjective Subjective Interval history: Improved breathing and leg edema, though still slightly short of breath and still on a small amount of supplemental O2. Exam Vital Signs (past 8 hours): - 02/02/24 08:00 02/02/24 08:52 Temperature 97.1 F L Pulse Rate 86 96 H Respiratory Rate 20 Blood Pressure 142/77 H Pulse Oximetry 94 93 Oxygen Delivery Method Nasal Cannula Oxygen Flow Rate 1 1 Fraction of Inspired Oxygen 21 SaO2/FiO2 Ratio 428 Oxygen Delivery Method Nasal Cannula Oxygen Flow Rate 1 Narrative Exam Narrative: GEN: ill-appearing, somnolent obese male HEENT: moist mucous membranes, PERRL NECK: trachea midline, no JVD CV: regular rate and rhythm, no murmurs PULM: bilateral rhonchi ABD: soft, nontender, obese, no organomegaly, intertrigo in groin EXT: 1-2+ edema, venous stasis changes with crusting NEURO: somnolent, drifts off to sleep, oriented, no focal deficits Objective Labs 02/02/24 05:45 02/02/24 05:45 Labs: Laboratory Results - last 24 hr 02/01/24 02/01/24 02/02/24 13:00 14:09 05:45 WBC 5.1 RBC 4.99 Hgb 15.1 Hct 47.2 MCV 94.7 MCH 30.2 MCHC 31.9 RDW 16.6 H Plt Count 194 Neut % (Auto) 84.3 H Lymph % (Auto) 10.0 L [place] % (Auto) 5.6 Eos % (Auto) 0.0 L Baso % (Auto) 0.1 Neut # (Auto) 4300 Lymph # (Auto) 500 L [place] # (Auto) 300 Eos # (Auto) 0 Baso # (Auto) 0 Sodium 141 Potassium 4.0 Chloride 98 Carbon Dioxide 39 H BUN 9 Creatinine 0.66 Estimated GFR > 60 BUN/Creatinine Ratio 13.6 Glucose 133 H Hemoglobin A1c 5.8 Calcium 8.1 L Procalcitonin 0.043 SARS-CoV-2 (PCR) Negative Influenza A (RT-PCR) Flu a negative Influenza B (RT-PCR) Flu b negative RSV (PCR) Negative PFSH Medical History Hypoxia Degenerative joint disease of both hips Chronic pain of both knees Gout Bilateral lower extremity edema Chronic pain Iliotibial band syndrome, left leg Tobacco abuse counseling Right hip pain Social History household members: none Smoking Status: Current every day smoker Tobacco: How many years used: 45 alcohol intake: current substance use type: does not use Assessment & Plan Assessment & Plan narrative: # acute on chronic diastolic heart failure -CXR with pulm edema, LE edema present -continue with lasix 40mg IV daily, good response today. -previous echo with EF 65-70% in December 2023, will not repeat -discharge home on oral diuretic # chronic hypoxic respiratory failure -supposed to be on 2L at home, but noncompliant and reports only uses intermittently. -currently on 1L at rest. -continue to wean back to intermittent use only. # COPD exacerbation with possible PNA -patient has lots of secretions, rhonchi on exam, CXR with retrocardiac opacity -rocephin and azithro for possible bacterial PNA -continue prednisone 40mg x5 days -nebs, mucinex -CELL EFFICIENCY SUPERVISOR eval to check swallow was unremarkable, discussed with CELL EFFICIENCY SUPERVISOR today. # failure to thrive -PT/OT eval -SUPERVISOR SLITTING AND SHIPPING consult # alcohol use -drinks 4 beers daily -monitor for signs of withdrawal # HTN -continue lisinopril # intertrigo -nystatin BID Chronic problems: # Psoriasis, present on admission and active. # Gout, present on admission and active. # Morbid obesity, present on admission and active. # Venous insufficiency, present on admission and active. # Tobacco dependence, present on admission and active. # Opiate dependence, present on admission and active. Continue vicodin. Code status is full code. DVT prophylaxis with Lovenox. Proxy is brother Danish Reid. I have reviewed home meds and used all available resources to reconcile the home meds. Case discussed with case managment and therapies as noted above. Possible discharge home in 1-2 days depending on hypoxia and leg edema with diuresis. This patient will be admitted as observation and will require less than 2 midnights of hospital time to treat acute diastolic CHF. Quality VTE Deep Vein Thrombosis/Pulmonary Embolism Present on Admission: No
--- NOTE | 2024-02-02 16:10 | CM.DANOTE ---
Initial DCP Assessment Note Pt is a 58yo male, resident of [place], acute on chronic diastolic heart failure, resp failure, COPD exac with possible PNA, admitted for further work up and monitoring. UNIFORMS SALES REPRESENTATIVE consult requested for assessment of need, discussion with patient about ETOH and failure to thrive. PCP: [facility] Payer: Jessica COLÓN Reviewed chart, met w/patient to introduce self and role. Patient lives alone in [place], reports a supportive friend, Jill, lives down the road. Patient reports no children no other supportive family members other than a brother in [place]. Patient reports being retired and trying to get disability benefits related to chronic back pain and arthritis. When asked about alcohol use, patient reports drinking 3-4 16 oz cans of beer at night with dinner, no hx of w/d. Patient denies needs from this UNIFORMS SALES REPRESENTATIVE. Patient presents as younger than stated age, suspect poor health literacy. It may be helpful if friend Jill Bran P [phone] be present upon discharge. Patient would benefit from support w/discharge instructions, understanding medical recommendations and with navigating outpatient referrals. CM team will plan to follow clinical course closely in case any DC needs or concerns arise. JAGUAR Diaz Discharge Planning/Care Management CM Discharge Assessment Start: 02/02/24 16:09 Freq: Status: Active Protocol: Document 02/02/24 16:09 MARYSE (Rec: 02/02/24 16:10 MARYSE [id number]) Discharge Planning Assessment Assigned Fur Clipper JAGUAR Jacob DPOA/Assigned Designee Name Danish Reid, brother ([place]) Contact Information [phone] Advance Directives? No History Provided By Patient,Medical Record Prior Living Arrangements Apartment/Condo Household Members none Type of transporation used prior to Drives own vehicle admit Independent with ADL's Yes Is patient alert and oriented? Yes Barriers to Discharge No Comment Once medically stable Discharge Plan Home Transportation Arrangement TBD Referrals Initiated None needed Whiteboard Updated in Patient Room with Yes name and ext. # of Fur Clipper
[2024-02-03] MEDS: HYDROCODONE/ACET 5/325 TABLET 1.5 TAB PO ×3 (04:45→13:00)
[2024-02-03] MEDS: ALBUTEROL/IPRATROPIUM 3 ML AMPUL INH ×2 (08:12→14:13)
[2024-02-03] MEDS: lisinopriL 20 MG TABLET PO (09:00)
[2024-02-03] MEDS: FUROSEMIDE 40 MG/4 ML VIAL IV (09:00)
[2024-02-03] MEDS: AZITHROMYCIN 250 MG TABLET 500 MG PO (09:00)
[2024-02-03] MEDS: NICOTINE 21 MG PATCH TOP (09:00)
[2024-02-03] MEDS: ENOXAPARIN 40 MG/0.4 ML SYRINGE SUBCUT (09:00)
[2024-02-03] MEDS: guaiFENesin ER 600 MG TAB PO (09:00)
[2024-02-03] MEDS: NYSTATIN CREAM 30 GM 1 APPLIC TOP (09:00)
[2024-02-03] MEDS: predniSONE 20 MG TABLET 40 MG PO (09:00)
[2024-02-03] MEDS: cefTRIAXone 1,000 MG in SODIUM CHLORIDE 0.9% 100 ML 200 MG IV (09:40)
[2024-02-03] MEDS: ACETAMINOPHEN 325 MG TABLET 650 MG PO (15:00)
--- NOTE | 2024-02-03 15:53 | CM.DPC ---
DCP Cont: Patient should be discharging today with no needs. Friend is to pick him up. Svetlana Navarrete RN/Felt Dyeing Machine Tender
--- NOTE | 2024-02-03 17:10 | PM.DS.1 ---
History of Present Illness History of Present Illness Date Patient Seen: 02/03/24 Time Patient Seen: 17:11 Chief complaint: weeping mass on Rt leg Narrative: Per admitting provider, Angus Reid is a 58yo M with PMH of COPD on 2L O2 but noncompliant, chronic 1.5ppd smoker for 45yrs, CASS but noncompliant with CPAP, venous insufficiency, HTN and gout who presents with worsening dyspnea and LE swelling. Patient was admitted a few weeks ago and discharged home to see PCP and area secretary. He hasn't done these things and reports not doing much at home. He lives alone with his dog. He says his breathing been more short lately and he has weeping from both legs. He has oxygen at home but doesn't use it. He says now I'm going to. He denies CP, NV, abd pain, or diarrhea. Discharge Providers Provider Date of admission: 02/01/24 14:14 Discharge Date: 02/03/24 Primary care physician: [facility] DO Consults: 02/01/24 15:48 Consult to Occupational Therapy Evaluate & Treat Comment: Physician Instructions: Evaluate and treat Consult to Physical Therapy Evaluate & Treat Comment: Physician Instructions: Evaluate and Treat 02/01/24 16:02 Consult to Speech Therapy Evaluate & Treat Comment: Physician Instructions: Evaluate and treat 02/01/24 16:34 [place] to [facility] [facility] Routine Comment: lives alone, doesn't care for self Discharge provider: Martin Lynn DO Summary Hospital Course Discharge Diagnosis: # acute on chronic diastolic heart failure # acute on chronic hypoxic respiratory failure # COPD exacerbation with possible PNA # failure to thrive # alcohol use # HTN # intertrigo Chronic problems: # Psoriasis, present on admission and active. # Gout, present on admission and active. # Morbid obesity, present on admission and active. # Venous insufficiency, present on admission and active. # Tobacco dependence, present on admission and active. # Opiate dependence, present on admission and active. Continue vicodin. Hospital Course: This is a 58 year old male who presented with shortness of breath to the emergency room and LE edema. He was noted to have respiratory failure, initially requiring 2-4L of oxygen. He does have home oxygen and intermittently at night and has some home O2. He was treated with steroids for presumed COPD exacerbation, diuresed for possible heart failure and given antibiotics for possible pneumonia. It is presumed volume overload is the most likely etiology. With diuresis, steroids, and antibiotics the patient had slow improvement and had no ongoing symptoms. He was discharged home with continued steroids and antibiotics to complete 5 days, and is recommended to start oral diuretic with 40 mg of furosemide daily. These were hand written as patient was discharged home during a period of EMR update at the hospital. Echo was not repeated as had been recently done with an EF of around 65%. Time Spent with Patient Time spent: Greater than 30 minutes Exam Vital Signs (past 8 hours): Fraction of Inspired Oxygen 21 SaO2/FiO2 Ratio 428 Oxygen Delivery Method Nasal Cannula Oxygen Flow Rate 1.5 Narrative Exam Narrative: GEN: chronically ill-appearing, obese male HEENT: moist mucous membranes, PERRL NECK: trachea midline, no JVD CV: regular rate and rhythm, no murmurs PULM: bilateral rhonchi ABD: soft, nontender, obese, no organomegaly, intertrigo in groin EXT: trace edema, venous stasis NEURO: oriented, no focal deficits Objective Labs 02/03/24 06:00 02/03/24 05:45 [facility] Medical History Hypoxia Degenerative joint disease of both hips Chronic pain of both knees Gout Bilateral lower extremity edema Chronic pain Iliotibial band syndrome, left leg Tobacco abuse counseling Right hip pain Social History household members: none Smoking Status: Current every day smoker Tobacco: How many years used: 45 alcohol intake: current substance use type: does not use Discharge Plan Discharge Plan Patient Disposition: Home Provider Discharge Comment: You were admitted to the hospital with leg swelling and shortness of breath. Treated for heart failure, possible COPD exacerbation and pneumonia. Continue oral diuretic for at least 1 month, antibiotic and prednisone for another 3 days. Discharge orders & Medications Prescriptions: Continued Spiriva Respimat 2.5 mcg/actuation mist 2 puff INHALATION DAILY Qty: 4 5RF betamethasone dipropionate 0.05 % ointment See Rx Instructions .ROUTE .COMPLEX Qty: 45 5RF Dose Instruction: Apply small amount to affected area(s) daily as needed Rx Instructions: Apply small amount to affected area(s) daily as needed albuterol sulfate [Proventil HFA] 90 mcg/actuation HFA aerosol inhaler 2 puff INHALATION Q4H PRN (Reason: shortness of breath or wheezing) Qty: 8.5 11RF Rx Instructions: Inhale 2 puffs every 4 hours for shortness of breath or wheezing. varenicline 1 mg tablet 1 mg PO BID Qty: 56 3RF lisinopril 20 mg tablet 20 mg PO BID Changed hydrocodone-acetaminophen 7.5-325 mg tablet 1 tab PO Q4H PRN (Reason: Pain, Moderate) 7 Days Qty: 20 0RF Follow up/Referrals: [facility] DO [Primary Care Provider] - Diet/Activity/Treatments Diet: Diet as Tolerated and Regular Activity: As tolerated Visit Report/Discharge Packet Stand Alone Forms: Patient Portal/API, Stroke Signs & Symptoms Discharge Data Primary Care Provider: [facility] Quality VTE Deep Vein Thrombosis/Pulmonary Embolism Present on Admission: No
--- NOTE | 2024-02-03 17:31 | PC.NURSE ---
EMR downtime from 02/02/24 @ 1999 to 02/03/24 @ approximately 1600. Refer to paper documentation.
[2024-02-03 17:41] LABS: Add Manual Diff / Slide Review NO; Basophils Absolute Auto 0 /uL (0-100); Basophils Percent Auto 0.2 % (0-2); Eosinophils Absolute Auto 0 /uL (0-450); Eosinophils Percent Auto 0.1 % (2-4); Hemoglobin 14.2 g/dL (13.5-17.5); Lymphocytes Absolute Auto 1400 /uL (1100-4500); Mean Corpuscular HGB Conc 31.5 % (30-36); Mean Corpuscular Hemoglobin 29.9 PG (26-34); Mean Corpuscular Volume 94.6 fL (80-100); Monocytes Absolute Auto 700 /uL (0-900); Monocytes Percent Auto 8.8 % (3-14); Neutrophils Absolute Auto 5800 /uL (1500-7000); Neutrophils Percent Auto 72.9 % (50-75); Platelet Count 204 X10^3/uL (150-400); Red Blood Cell Count 4.76 X10^6/uL (4.5-5.9); Red Cell Distribution Width 16.8 % (11.6-14.8)
[2024-02-03 17:44] LABS: BUN Creatinine Ratio 25.4 (6-22); Blood Urea Nitrogen 16 mg/dL (9-20); Calcium 7.9 mg/dL (8.4-10.2); Carbon Dioxide 38 mmol/L (22-32); Chloride 98 mmol/L (98-107); Estimated Glomerular Filt Rate > 60 mL/min (>60); Glucose 98 mg/dL (80-110); HEMOLYSIS < 15 (0-50); Potassium 3.6 mmol/L (3.4-5.1); Sodium 140 mmol/L (137-145)
--- NOTE | 2024-02-08 01:45 | PC.NURSE ---
late entry for 02/03/24: At 04:44, norco 2 tabs pulled from [employer], dose was for 1.5 tabs. Wasted with night RN at 04:50. Medication was given prior to wasting. Paper charting was being done at this time for system upgrades and missed documenting.
== END 2024-02-03 17:45 | disposition home or self-care (01) | DRG 193 ==
LOC: ED 12:58 → AC 14:16
PROVIDERS: Admitting Provider Student in an Organized Health Care Education/Training Program; Emergency Provider Emergency Medicine; PCP Family Medicine; Referring Provider Emergency Medicine; Visit Provider Student in an Organized Health Care Education/Training Program
DX: J18.9 Pneumonia, unspecified organism (principal); I50.33 Acute on chronic diastolic (congestive) heart failure; J96.21 Acute and chronic respiratory failure with hypoxia; J44.1 Chronic obstructive pulmonary disease with (acute) exacerbation; Z68.41 Body mass index [BMI] 40.0-44.9, adult; F11.20 Opioid dependence, uncomplicated; L03.116 Cellulitis of left lower limb; L03.115 Cellulitis of right lower limb; I11.0 Hypertensive heart disease with heart failure; F17.210 Nicotine dependence, cigarettes, uncomplicated; R62.7 Adult failure to thrive; F10.90 Alcohol use, unspecified, uncomplicated; L30.4 Erythema intertrigo; L40.9 Psoriasis, unspecified; E66.01 Morbid (severe) obesity due to excess calories; M10.9 Gout, unspecified; I87.2 Venous insufficiency (chronic) (peripheral); Z91.199 Patient's noncompliance with other medical treatment and regimen due to unspecified reason; Z99.81 Dependence on supplemental oxygen
CPT/HCPCS: 0241U; 36415; 71045; 80048; 80053; 83036; 83605; 83880; 84145; 84484; 85025; 85610; 87040; 92610; 93005; 94640; 94760; 96374; 97162; 97166; 97530; 97535; 99285; 99291; J0696; J1650; J1940; J2919

== ENCOUNTER 2024-03-01 12:34 | Emergency (ER) | payer OTHER, SELFPAY ==
[2024-02-02 12:55] VITALS: BMI 40.2
[2024-03-01] VITALS (12 sets, daily range): BP systolic 145–189; BP diastolic 72–92; PULSE 82–97; RESP 21–33; TEMP 36.9; O2SAT 90–98; BMI 36.2
--- NOTE | 2024-03-01 12:53 | DI.RAD.S_ITS ---
PROCEDURE: XR CHEST 1V INDICATIONS: Shortness of breath TECHNIQUE: One view of the chest was acquired. COMPARISON: [facility], CR, XR CHEST 1V, 02/01/2024, 13:10. FINDINGS: Surgical changes and devices: None. Lungs and pleura: Lungs are clear. No pleural effusions or pneumothorax. Mediastinum: Mediastinal contours appear normal. Stable cardiomegaly Bones and chest wall: No suspicious bony lesions. Overlying soft tissues appear unremarkable. Miscellaneous: A pair of glasses is presumed to be on the patient and not in the patient. IMPRESSION: A pair of glasses is presumed to be on the patient, and not in the patient. Stable cardiomegaly. No acute pulmonary process. Dictated by: Vineet Garibay M.D. on 03/01/2024 at 13:41 Approved by: Vineet Garibay M.D. on 03/01/2024 at 13:43
--- NOTE | 2024-03-01 12:53 | EKG_ITS ---
[address] [address] Test Date: 2024-03-01 Pat Name: Parth Reid Department: [facility] Room: Gender: Male Society Reporter: ELAINA : 1965 Requested By: Order Number: [id number] Reading MD: Martin Lynn Measurements Intervals [place] Rate: 91 P: 56 HI: 172 QRS: 4 QRSD: 88 T: 18 QT: 354 QTc: 435 Interpretive Statements Sinus rhythm with premature supraventricular complexes Septal infarct , age undetermined Electronically Signed On 03-05-2024 9:00:04 PDT by Martin Lynn
--- NOTE | 2024-03-01 13:06 | PC.NURSE ---
Patient was 86% on room air with intermittent pulse oximeter on. Respiratory therapy at patient bedside. Patient placed on 2L nasal cannula and pulse ox went to 94%
[2024-03-01] MEDS: ALBUTEROL 2.5 MG/3 ML NEB (ADULT) INH (13:11)
[2024-03-01] MEDS: ALBUTEROL/IPRATROPIUM 3 ML AMPUL INH (13:11)
--- NOTE | 2024-03-01 13:23 | ED_ITS ---
HPI - General Adult General Chief complaint: Shortness of Breath/Dyspnea Stated complaint: knee and ankle swelling, lung congestion Time Seen by Provider: 03/01/24 13:16 Source: patient, RN notes reviewed and old records reviewed Mode of arrival: Ambulatory Limitations: no limitations History of Present Illness HPI narrative: 58-year-old male history of COPD, chronic tobacco use, CASS but noncompliant with CPAP, venous insufficiency, hypertension and gout who presents with worsening dyspnea and lower extremity edema. Patient had hospitalization for 2 days in January discharged on 02/03/2024 on diuretic, antibiotic and prednisone for acute CHF and COPD. Patient states he completed his diuretic and ran out about a week ago, since then he has had increasing swelling of his lower extremities he is noted increasing congestion in his chest. He states it does not really feel short of breath. States he has had a little bit of cough that is sort of phlegmy. Denies fevers. Denies any nasal congestion. Denies any chest pain. Patient states no nausea or vomiting. No new issues with bowel movements or urination. Patient does have home O2 but states he has not using it. He states he has a equipment he has everything that he needs but he has a barboza retriever so he has been avoiding using it any continues to smoke. He is aware that he should not smoke while using oxygen secondary to its flammability. Patient does ask for dose of his home pain medication for his chronic back pain. He has not been to see the physician Sitz discharge. Denies any new drug allergies. Does use tobacco daily, does drink alcohol daily, denies any recreational drugs. Dr. Painting is his primary care physician. Related Data Previous Rx's Medication Instructions Recorded hydrocodone 7.5 mg-acetaminophen 1 tab PO Q4H PRN Pain, Moderate 7 02/04/24 325 mg tablet days #20 tabs albuterol sulfate 90 mcg/actuation 2 puff inhalation Q4H PRN 02/14/24 aerosol inhaler (Proventil HFA) shortness of breath or wheezing #8.5 ea bupropion HCl 75 mg tablet 75 mg PO BID #60 tabs 02/14/24 lisinopril 40 mg tablet 40 mg PO DAILY #90 tabs 02/14/24 tiotropium bromide 2.5 2 puff inhalation DAILY #4 grams 02/14/24 mcg/actuation mist for inhalation (Spiriva Respimat) betamethasone dipropionate 0.05 % See Rx Instructions .Route 02/19/24 topical ointment .COMPLEX #45 grams furosemide 40 mg tablet (Lasix) 40 mg PO DAILY #30 tabs 03/01/24 Allergies Allergy/AdvReac Type Severity Reaction Status Date / Time No Known Drug Allergies Allergy Unknown Verified 02/14/24 11:07 Review of Systems Review of Systems ROS Unobtainable: All systems reviewed & are unremarkable except as noted in HPI and below Patient History Medical History Hypoxia Degenerative joint disease of both hips Chronic pain of both knees Gout Bilateral lower extremity edema Chronic pain Iliotibial band syndrome, left leg Tobacco abuse counseling Right hip pain Social History household members: none Smoking Status: Current every day smoker Tobacco: How many years used: 45 alcohol intake: current substance use type: does not use Smoking Status: Current every day smoker tobacco type: cigarettes alcohol intake frequency: 3 or more drinks per day Substance Use Type: does not use Exam Narrative Exam Narrative: GENERAL: Alert and oriented x three, male in mild distress HEENT: Head normocephalic, atraumatic, EOMI, pupils reactive, face symmetric, moist mucous membranes, patient is on 2 L nasal cannula. NECK: Supple, full range of motion CARDIOVASCULAR: Regular rate and rhythm without murmurs, rubs or gallops. JVD. Bilateral lower extremity edema. RESPIRATORY: Breath sounds equal bilaterally, wheezes or rhonchi, crackles bilateral bases. No tachypnea or accessory muscle use. ABDOMEN: Soft, nontender. Normoactive bowel sounds all 4 quadrants. No guarding or rebound, rigidity, no mass : No CVA tenderness EXTREMITIES: Normal range of motion Neurovascularly intact NEUROLOGICAL: Cranial nerves II through XII grossly intact. Moving all extremities SKIN: Warm, dry, no petechiae, no rashes or lesions. Initial Vital Signs Initial Vital Signs: Vital Signs Temperature 98.5 F 03/01/24 12:47 Pulse Rate 90 03/01/24 12:47 Respiratory Rate 24 03/01/24 12:47 Blood Pressure 175/92 H 03/01/24 12:47 Pulse Oximetry 90 L 03/01/24 12:47 Oxygen Delivery Method Room Air 03/01/24 12:47 Course Orders Ordered: ED Orders 03/01/24 12:53 XR chest 1V Stat EKG-12 Lead Stat Measure peak expiratory flow ONCE RT Consult Eval and Treat NOW 03/01/24 13:00 Complete Blood Count AUTO DIFF Stat Comprehensive Metabolic Panel Stat D Dimer Stat Lactate (Lactic Acid) Stat NT-proBNP (BNP-Adult 18+) Stat Prothrombin Time INR Stat Troponin I Stat 03/01/24 15:43 CT angio chest PE protocol Stat Albuterol (Albuterol 2.5 Mg/3 Ml Neb (Adult)) 2.5 mg INH [id number] PRN PRN Reason: Shortness Of Breath Last Admin: 03/01/24 13:11 Dose: 2.5 mg Documented By: RANDALL Discontinued Medications Hydrocodone Bitart/Acetaminophen (Hydrocodone/Acet 5/325 Tablet) 2 tab PO NOW ONE Stop: 03/01/24 14:57 Last Admin: 03/01/24 15:04 Dose: 2 tab Documented By: WANDA Albuterol/Ipratropium (Albuterol/Ipratropium 3 Ml Ampul) 3 ml INH NOW ONE Stop: 03/01/24 13:11 Last Admin: 03/01/24 13:11 Dose: 3 ml Documented By: RANDALL Furosemide (Furosemide 40 Mg/4 Ml Vial) 40 mg IV NOW ONE Stop: 03/01/24 13:37 Last Admin: 03/01/24 14:11 Dose: 40 mg Documented By: WANDA Vital Signs Vital signs: Vital Signs - 8 hr 03/01/24 12:47 03/01/24 13:16 03/01/24 14:08 Temperature 98.5 F Pulse Rate 90 82 97 H Respiratory Rate 24 24 33 H Blood Pressure 175/92 H Pulse Oximetry 90 L 95 97 Oxygen Delivery Method Room Air Nasal Cannula Oxygen Flow Rate 2 03/01/24 14:30 03/01/24 14:31 03/01/24 14:31 Temperature Pulse Rate 93 H 94 H Respiratory Rate 33 H 31 H Blood Pressure 145/74 H Pulse Oximetry 95 96 Oxygen Delivery Method Oxygen Flow Rate 03/01/24 15:00 03/01/24 15:36 03/01/24 16:38 Temperature Pulse Rate 88 88 83 Respiratory Rate 22 21 Blood Pressure Pulse Oximetry 97 96 98 Oxygen Delivery Method Room Air Oxygen Flow Rate 3 03/01/24 16:39 03/01/24 16:39 03/01/24 17:00 Temperature Pulse Rate 82 89 Respiratory Rate 24 32 H Blood Pressure 165/75 H Pulse Oximetry 98 98 Oxygen Delivery Method Oxygen Flow Rate 03/01/24 17:01 03/01/24 17:01 Temperature Pulse Rate 86 Respiratory Rate Blood Pressure 189/88 H Pulse Oximetry 98 Oxygen Delivery Method Oxygen Flow Rate Medical Decision Making Lab Data 03/01/24 13:00 03/01/24 13:00 Labs: Lab Results 03/01/24 Range/Units 13:00 WBC 5.4 (4.5-11.0) X10^3/uL RBC 4.76 (4.5-5.9) X10^6/uL Hgb 14.5 (13.5-17.5) g/dL Hct 44.9 (41-53) % MCV 94.3 (80-100) fL MCH 30.4 (26-34) PG MCHC 32.2 (30-36) % RDW 17.1 H (11.6-14.8) % Plt Count 197 (150-400) X10^3/uL Neut % (Auto) 66.7 (50-75) % Lymph % (Auto) 17.6 L (25-40) % [place] % (Auto) 13.8 (3-14) % Eos % (Auto) 1.3 L (2-4) % Baso % (Auto) 0.6 (0-2) % Neut # (Auto) 3600 (3647-1025) /uL Lymph # (Auto) 1000 L (7532-5608) /uL [place] # (Auto) 800 (0-900) /uL Eos # (Auto) 100 (0-450) /uL Baso # (Auto) 0 (0-100) /uL PT 13.9 H (9.4-12.5) SECONDS INR 1.2 (0.9-1.3) D-Dimer 1005 H (<500) ng/ml Sodium 141 (137-145) mmol/L Potassium 4.1 (3.4-5.1) mmol/L Chloride 101 (98-107) mmol/L Carbon Dioxide 37 H (22-32) mmol/L BUN 4 L (9-20) mg/dL Creatinine 0.66 (0.66-1.25) mg/dL Estimated GFR > 60 (>60) mL/min BUN/Creatinine Ratio 6.1 (6-22) Glucose 101 (80-110) mg/dL Lactate 1.3 (0.7-2.1) mmol/L Calcium 8.2 L (8.4-10.2) mg/dL Total Bilirubin 0.7 (0.2-1.3) mg/dL AST 23 (17-59) IU/L ALT 16 (<50) IU/L Alkaline Phosphatase 101 (38-126) U/L Troponin I < 0.012 (0.01-0.034) ng/mL NT-Pro-B Natriuret Pep 935 H (<125) pg/mL Total Protein 6.6 (6.3-8.2) g/dL Albumin 3.7 (3.5-5.0) g/dL Globulin 2.9 (1.7-4.1) g/dL Albumin/Globulin Ratio 1.3 (1.0-2.8) Imaging Data Chest x-ray: Radiologist's Impression: Close Chest X-Ray (Signed) Vineet Garibay - 03/01/24 Chest X-Ray (Signed) Ian Méndez - 02/01/24 Vascular Ultrasound (Signed) Lolly Ann - 01/11/24 Echocardiogram Ultrasound (Signed) Jeannie Watts - 01/10/24 Telemetry Strips 01/10/24 Chest CTA (Signed) Vineet Garibay - 01/10/24 Chest X-Ray (Signed) Artemio Duval - 01/10/24 Chest X-Ray (Signed) Millie Amato - 02/20/23 Hip X-Ray (Signed) Ian Méndez - 01/18/23 Lumbar Spine X-Ray (Signed) Bernardo Silva - 01/18/23 Lumbar Spine MRI (Signed) Dereje Nava - 07/04/19 Hip MRI (Signed) Dereje Nava - 07/04/19 Lumbar Spine X-Ray (Signed) Lizett Silva - 03/28/18 Hip X-Ray (Signed) Lizett Silva - 03/28/[address] [id number] XRay Report Signed Patient: Parth Reid MR#: [id number] : 1965 Acct:[id number] Age/Sex: 58 / M Date of Service: 03/01/24 Loc: ED Accession Number: [id number] Procedure: XR chest 1V Ordering Provider: Yari Hutchinson D.O. PROCEDURE: XR CHEST 1V INDICATIONS: Shortness of breath TECHNIQUE: One view of the chest was acquired. COMPARISON: [facility], , XR CHEST 1V, 02/01/2024, 13:10. FINDINGS: Surgical changes and devices: None. Lungs and pleura: Lungs are clear. No pleural effusions or pneumothorax. Mediastinum: Mediastinal contours appear normal. Stable cardiomegaly Bones and chest wall: No suspicious bony lesions. Overlying soft tissues appear unremarkable. Miscellaneous: A pair of glasses is presumed to be on the patient and not in the patient. IMPRESSION: A pair of glasses is presumed to be on the patient, and not in the patient. Stable cardiomegaly. No acute pulmonary process. Dictated by: Vineet Garibay M.D. on 03/01/2024 at 13:41 Approved by: Vineet Garibay M.D. on 03/01/2024 at 13:43 ECG Data Attestation: I personally reviewed and interpreted this ECG as follows: Prior ECG tracings: available for review Interpretation: Sinus rhythm premature supraventricular complexes rate of 91 NE 172 QRS 88 QTC 435, no acute ST elevation. Patient has similar appearing EKG from 02/01/2024. MDM Narrative Medical decision making narrative: Labs show white count of 5.4 hemoglobin of 14.5, hematocrit of 44, platelets of 197. INR 1.2, electrolytes are overall appropriate sodium 141 potassium 4.1 chloride of 1013 CO2 of 37, BUN 4 creatinine 0.66, glucose of 101 lactate 1.3, LFTs are negative, troponin less than 0.012, BNP is 935, patient's prior maximum was 1170 in December of 2023 was 670 in January of 2024. EKG shows no acute changes appears similar to prior from 02/01/2024 Chest x-ray, patient's glasses are indeed on the outside of the patient, stable cardiomegaly. Patient was given dose of Lasix, he has not hypotensive he has not hypoxic felt to be appropriate for discharge home with a new prescription for oral diuretics and goal of follow up with primary care. Patient had about 900 mL out recheck after Lasix. He feels somewhat improved. Discussed starting his diuretic he does believe he is on Lasix he does not recall the dose. He did also note that he states he had a pulmonary emboli in the past, was hospitalized in [facility] sometime ago he states he was on blood thinners for a short period afterwards but sounds like he probably did not follow up or at least did not continue anticoagulation. He does not recall why he had the blood clot. D-dimer was added on is elevated even when age adjusted and CT angio was obtained which show no pulmonary embolus, minimal right effusion with minimal right basilar atelectasis stable 9 mm left perifissural nodule Patient continues to appear comfortable, no persistent tachypnea we will discharge home with diuretic. Discharge Plan Departure Patient Disposition: Home Clinical Impression: Lung nodule, Pleural effusion on right Congestive heart failure (CHF) Qualifiers: Heart failure chronicity: acute on chronic Instructions: DI for Heart Failure Activity Restrictions/Additional Instructions: You need to follow up with your primary care physician to make sure that you have all of your medications, you likely will need to take a diuretic daily and we will need a refill of this medication from your physician. Call to set up an appointment. Your imaging does show a pulmonary nodule this does appear to be stable but should be monitored by your physician. You also have a very small pleural effusion on the right. Take Lasix once daily. Prescription sent to [facility] in [place] Make sure to continue your home medications as prescribed. Please return for new or worsening chest pain, shortness of breath, lightheadedness or passing out, increasing swelling of your extremities, fevers, persistent vomiting or other new or concerning changes. Prescriptions: New furosemide [Lasix] 40 mg tablet 40 mg PO DAILY Qty: 30 0RF No Action betamethasone dipropionate 0.05 % ointment See Rx Instructions .ROUTE .COMPLEX Qty: 45 5RF Dose Instruction: Apply small amount to affected area(s) daily as needed Rx Instructions: Apply small amount to affected area(s) daily as needed Spiriva Respimat 2.5 mcg/actuation mist 2 puff INHALATION DAILY Qty: 4 5RF lisinopril 40 mg tablet 40 mg PO DAILY Qty: 90 3RF albuterol sulfate [Proventil HFA] 90 mcg/actuation HFA aerosol inhaler 2 puff INHALATION Q4H PRN (Reason: shortness of breath or wheezing) Qty: 8.5 11RF Rx Instructions: Inhale 2 puffs every 4 hours for shortness of breath or wheezing. bupropion HCl 75 mg tablet 75 mg PO BID Qty: 60 5RF Rx Instructions: administer 6 hours apart hydrocodone-acetaminophen 7.5-325 mg tablet 1 tab PO Q4H PRN (Reason: Pain, Moderate) 7 Days Qty: 20 0RF Referrals: Atif Painting DO [Primary Care Provider] - Stand Alone Forms: Patient Portal/API
[2024-03-01 13:26] LABS: Add Manual Diff / Slide Review NO; Basophils Absolute Auto 0 /uL (0-100); Basophils Percent Auto 0.6 % (0-2); Eosinophils Absolute Auto 100 /uL (0-450); Eosinophils Percent Auto 1.3 % (2-4); Hematocrit 44.9 % (41-53); Hemoglobin 14.5 g/dL (13.5-17.5); Lymphocytes Absolute Auto 1000 /uL (1100-4500); Lymphocytes Percent Auto 17.6 % (25-40); Mean Corpuscular HGB Conc 32.2 % (30-36); Mean Corpuscular Hemoglobin 30.4 PG (26-34); Mean Corpuscular Volume 94.3 fL (80-100); Monocytes Absolute Auto 800 /uL (0-900); Monocytes Percent Auto 13.8 % (3-14); Neutrophils Absolute Auto 3600 /uL (1500-7000); Neutrophils Percent Auto 66.7 % (50-75); Platelet Count 197 X10^3/uL (150-400); Red Blood Cell Count 4.76 X10^6/uL (4.5-5.9); Red Cell Distribution Width 17.1 % (11.6-14.8); White Blood Cell Count 5.4 X10^3/uL (4.5-11.0)
[2024-03-01 13:28] LABS: INR 1.2 (0.9-1.3); Prothrombin Time 13.9 SECONDS (9.4-12.5)
[2024-03-01 13:31] LABS: Alanine Aminotransferase 16 IU/L (<50); Albumin 3.7 g/dL (3.5-5.0); Albumin Globulin Ratio 1.3 (1.0-2.8); Alkaline Phosphatase 101 U/L (38-126); Aspartate Aminotransferase 23 IU/L (17-59); BUN Creatinine Ratio 6.1 (6-22); Bilirubin Total 0.7 mg/dL (0.2-1.3); Blood Urea Nitrogen 4 mg/dL (9-20); Calcium 8.2 mg/dL (8.4-10.2); Carbon Dioxide 37 mmol/L (22-32); Chloride 101 mmol/L (98-107); Estimated Glomerular Filt Rate > 60 mL/min (>60); Globulin 2.9 g/dL (1.7-4.1); Glucose 101 mg/dL (80-110); HEMOLYSIS < 15 (0-50); Lactate (Lactic Acid) 1.3 mmol/L (0.7-2.1); Potassium 4.1 mmol/L (3.4-5.1); Sodium 141 mmol/L (137-145); Total Protein 6.6 g/dL (6.3-8.2)
[2024-03-01 13:42] LABS: NT-proBNP (BNP-Adult 18+) 935 pg/mL (<125); Troponin I < 0.012 ng/mL (0.01-0.034)
[2024-03-01] MEDS: FUROSEMIDE 40 MG/4 ML VIAL IV (14:11)
[2024-03-01] MEDS: HYDROCODONE/ACET 5/325 TABLET 2 TAB PO (15:04)
[2024-03-01 15:06] LABS: D Dimer 1005 ng/ml (<500)
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
== END 2024-03-01 18:25 | disposition home or self-care (01) ==
PROVIDERS: Emergency Provider Emergency Medicine; PCP Family Medicine
DX: I50.9 Heart failure, unspecified (principal); J90 Pleural effusion, not elsewhere classified; R91.1 Solitary pulmonary nodule; R06.00 Dyspnea, unspecified; Z79.899 Other long term (current) drug therapy
CPT/HCPCS: 36415; 71045; 71275; 80053; 83605; 83880; 84484; 85025; 85379; 85610; 93005; 94640; 96374; 99284; J1940; J7613; Q9967

== ENCOUNTER 2024-05-07 13:54 | Emergency (ER) | payer OTHER, SELFPAY ==
[2024-02-02 12:55] VITALS: BMI 40.2
[2024-05-07] VITALS (19 sets, daily range): BP systolic 159–186; BP diastolic 77–105; PULSE 84–94; RESP 14–35; TEMP 36.6–36.8; O2SAT 89–99; BMI 37.6
--- NOTE | 2024-05-07 14:08 | EKG_ITS ---
[place] [id number] [place] [id number] Test Date: 2024-05-07 Pat Name: Parth Reid Department: [facility] Room: Gender: Male Health Tech: JUAN DANIEL : 1965 Requested By: Order Number: [id number] Reading MD: Javier Killian Measurements Intervals [place] Rate: 89 P: 54 [place]: 154 QRS: 32 QRSD: 88 T: 15 QT: 348 QTc: 423 Interpretive Statements Sinus rhythm with occasional premature ventricular complexes Septal infarct , age undetermined Electronically Signed On 05-07-2024 15:30:21 PDT by Javier Killian
--- NOTE | 2024-05-07 14:08 | DI.RAD.S_ITS ---
PROCEDURE: XR CHEST 1V INDICATIONS: Shortness of breath TECHNIQUE: One view of the chest was acquired. COMPARISON: [facility], CT, CT ANGIO CHEST PE PROTOCOL, 01/10/2024, 14:20. [facility], CR, XR CHEST 1V, 03/01/2024, 13:01. [facility], CR, XR CHEST 1V, 02/01/2024, 13:10. FINDINGS: Surgical changes and devices: None. Lungs and pleura: Similar nodular region adjacent to the left hilum. No drainable pleural effusion. Mild lower lung opacities. Mediastinum: Cardiomegaly Bones and chest wall: Degenerative changes IMPRESSION: Mild lower lung opacities. These may represent atelectasis versus infection versus edema. Cardiomegaly Consider future imaging surveillance to assess for resolution. Left lung nodular region, surveillance CT was also recommended previously. Dictated by: Jakub Syed M.D. on 05/07/2024 at 14:32 Approved by: Jakub Syed M.D. on 05/07/2024 at 14:36
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
[2024-05-07 14:46] LABS: Add Manual Diff / Slide Review NO; Basophils Absolute Auto 0 /uL (0-100); Basophils Percent Auto 0.7 % (0-2); Eosinophils Absolute Auto 0 /uL (0-450); Eosinophils Percent Auto 0.7 % (2-4); Hematocrit 46.9 % (41-53); Lymphocytes Absolute Auto 700 /uL (1100-4500); Lymphocytes Percent Auto 10.4 % (25-40); Mean Corpuscular HGB Conc 31.9 % (30-36); Mean Corpuscular Hemoglobin 31.4 PG (26-34); Mean Corpuscular Volume 98.4 fL (80-100); Monocytes Absolute Auto 900 /uL (0-900); Neutrophils Absolute Auto 5000 /uL (1500-7000); Neutrophils Percent Auto 74.2 % (50-75); Platelet Count 196 X10^3/uL (150-400); Red Blood Cell Count 4.77 X10^6/uL (4.5-5.9); Red Cell Distribution Width 15.9 % (11.6-14.8); White Blood Cell Count 6.7 X10^3/uL (4.5-11.0)
[2024-05-07] MEDS: MORPHINE 4 MG/ML INJ IV (14:48)
[2024-05-07] MEDS: ALBUTEROL 2.5 MG/3 ML NEB (ADULT) INH (14:52)
[2024-05-07 14:54] LABS: INR 1.1 (0.9-1.3); Prothrombin Time 12.2 SECONDS (9.4-12.5)
[2024-05-07 15:01] LABS: Alanine Aminotransferase 41 IU/L (<50); Albumin 3.7 g/dL (3.5-5.0); Albumin Globulin Ratio 1.3 (1.0-2.8); Alkaline Phosphatase 125 U/L (38-126); Aspartate Aminotransferase 43 IU/L (17-59); BUN Creatinine Ratio 21.4 (6-22); Bilirubin Total 0.9 mg/dL (0.2-1.3); Blood Urea Nitrogen 9 mg/dL (9-20); Calcium 8.5 mg/dL (8.4-10.2); Carbon Dioxide 34 mmol/L (22-32); Chloride 100 mmol/L (98-107); Creatine Kinase 48 U/L (55-170); Estimated Glomerular Filt Rate > 60 mL/min (>60); Globulin 2.9 g/dL (1.7-4.1); Glucose 95 mg/dL (80-110); Sodium 138 mmol/L (137-145); Total Protein 6.6 g/dL (6.3-8.2)
[2024-05-07 15:04] LABS: Potassium 4.5 mmol/L (3.4-5.1)
[2024-05-07 15:12] LABS: Lipase 66 U/L (23-300)
[2024-05-07 15:13] LABS: Troponin I < 0.012 ng/mL (0.01-0.034)
[2024-05-07 15:23] LABS: Procalcitonin 0.056 ng/mL (<0.5)
[2024-05-07 15:33] LABS: HEMOLYSIS 92 (0-50); NT-proBNP (BNP-Adult 18+) 1030 pg/mL (<125)
[2024-05-07] MEDS: FUROSEMIDE 80 MG in SODIUM CHLORIDE 0.9% 50 ML 116 MG IV (16:01)
[2024-05-07] MEDS: HYDROCODONE/ACET 5/325 TABLET 2 TAB PO (17:38)
== END 2024-05-07 18:00 | disposition home or self-care (01) ==
PROVIDERS: Emergency Provider Emergency Medicine; PCP Family Medicine
DX: J81.1 Chronic pulmonary edema (principal); J44.9 Chronic obstructive pulmonary disease, unspecified; I50.9 Heart failure, unspecified; M54.9 Dorsalgia, unspecified; F17.200 Nicotine dependence, unspecified, uncomplicated
CPT/HCPCS: 36415; 71045; 80053; 82550; 83605; 83690; 83880; 84145; 84484; 85025; 85610; 93005; 94640; 96365; 96375; 99284; 99285; J1940; J2270; J7613